=== PATIENT | female | born 1965 | race Caucasian/White ===

== ENCOUNTER → 2023-09-14 | Emergency (ER) | payer OTHER ==
[~2023-09-14] MED LIST: NA CHLORIDE 0.9% 1,000 ML ONE; POTASSIUM CL SA 10 MEQ TAB PO ONE
--- NOTE | 2023-09-14 11:38 | RAD REPORT ---
EXAM DESCRIPTION: RAD - Chest Single View - 09/14/2023 11:32 am CLINICAL HISTORY: COPD Chest pain. COMPARISON: No comparisons FINDINGS: Portable technique limits examination quality. The lungs demonstrates prominent fibrotic changes with bilateral reticular opacities which could be c hronic or related to mild infection. . The heart is normal in size. No displaced fractures.
[2023-09-14 11:58] LABS: Absolute Basophils 0.1 K/uL (0-0.5); Absolute Lymphocytes (CBC) 1.3 K/uL (0.7-4.9); Basophils % 0.7 % (0-1.3); Eosinophils % 0.5 % (0-4.4); Hemoglobin 10.2 g/dL (12.0-15.0); Lymphocytes % 15.3 % (15.3-44.8); MCV 93.8 fL (80-100); MPV 8.4 fL (7.6-11.3); Platelets 366 thou/uL (152-406)
[2023-09-14 12:28] LABS: Specific Gravity 1.009 (1.005-1.030); Urine Bacteria <20 /HPF (<20); Urine Bilirubin NEGATIVE (Negative); Urine Blood Negative (Negative); Urine Clarity Extremely Turbid (Clear); Urine Color Light-Yellow (Yellow); Urine Glucose NEGATIVE (Negative); Urine Protein TRACE (Negative); Urine RBC <5 /HPF (None Seen); Urine Urobilinogen Normal (Normal); Urine pH 6.5 (5.0-7.0)
[2023-09-14 13:44] LABS: Albumin 1.9 g/dL (3.4-5.0); Albumin/Globulin Ratio 0.6 (1.1-1.8); Anion Gap 7.8 mEq/L (5.0-15.0); Bilirubin Direct 0.1 mg/dL (0-0.2); Bilirubin Indirect, Calculated 0.1 mg/dL (0.2-0.8); Bilirubin Total 0.2 mg/dL (0.2-1.0); Globulin 3.3 g/dL (2.3-3.5); Potassium 2.8 mEq/L (3.5-5.1); Protein, Total 5.2 g/dL (6.4-8.2); Troponin High Sensitivity 6.9 pg/mL (<58.9)
--- NOTE | 2023-09-14 14:02 | ER ---
Nurse's Notes [facility] Name: Lila Rosales Age: 57 yrs Sex: Female : 1965 Arrival Date: 09/14/2023 Time: 10:53 Bed 12 Private MD: Diagnosis: Hypokalemia;Hypoglycemia, unspecified Presentation: 09/13 11:01 Chief complaint: EMS states: Pt blood glucose reading was 45 on scene. Pt had 1 bag of kd3 D5W in route to the ED. Pt's Blood glucose reading on arrival was 185. Pt arrived on 2 liters nasal canula which is her baseline at home. Pt lives at home with family. Pt is now alert and oriented x 4, respirations are even and unlabored, pt is noted to be hypotensive on the monitor. Pt has a history of being hypotensive and has "fluid on her lungs". Pt placed on continuous monitoring and provided warm blankets for comfort. Coronavirus screen: Vaccine status: Patient reports receiving the 2nd dose of the covid vaccine. Ebola Screen: No symptoms or risks identified at this time. Initial Sepsis Screen: Does the patient meet any 2 criteria? Mean Arterial Pressure (MAP) < 65. No. Patient's initial sepsis screen is negative. Does the patient have a suspected source of infection? No. Patient's initial sepsis screen is negative. Risk Assessment: Do you want to hurt yourself or someone else? Patient reports no desire to harm self or others. Onset of symptoms was September 14, 2023. 11:01 Method Of Arrival: EMS: [facility] kd3 11:01 Acuity: DONNY 3 kd3 Triage Assessment: 11:05 General: Appears in no apparent distress. Behavior is calm, cooperative. Pain: Denies kd3 pain. 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 - Social history:: Smoking status: Patient reports the use of cigarette tobacco products. Screenin:12 [facility] ED Fall Risk Assessment (Adult) History of falling in the last 3 months, ph including since admission No falls in past 3 months (0 pts) Confusion or Disorientation No (0 pts) Intoxicated or Sedated No (0 pts) Impaired Gait No (0 pts) Mobility Assist Device Used No (0 pt) Altered Elimination No (0 pt) Score/Fall Risk Level 0 - 2 = Low Risk Oriented to surroundings, Maintained a safe environment, Provided non-skid footwear, Hourly rounding (assess needs \\T\\ fall precautionary measures) done. Abuse screen: Denies threats or abuse. Denies injuries from another. Nutritional screening: No deficits noted. Tuberculosis screening: No symptoms or risk factors identified. Assessment: 12:11 General: Appears in no apparent distress. comfortable, Behavior is calm, cooperative, ph appropriate for age. Pain: Denies pain. Neuro: Level of Consciousness is awake, alert, obeys commands, Oriented to person, place, time, situation. Respiratory: Airway is patent Respiratory effort is even, unlabored, Respiratory pattern is regular, symmetrical. Derm: Skin is intact, is healthy with good turgor, Skin is pink, warm \\T\\ dry. Musculoskeletal: Circulation, motion, and sensation intact. Range of motion: intact in all extremities. 12:30 General: Appears comfortable, Behavior is calm, cooperative, appropriate for age. Pain: me1 Denies pain. 12:30 Neuro: Level of Consciousness is awake, alert, obeys commands, Oriented to person, me1 place, time, situation, Appropriate for age. Cardiovascular: Patient's skin is warm and dry. Respiratory: Airway is patent Respiratory effort is even, unlabored, Respiratory pattern is regular, symmetrical, O2 at \\T\\ lpm via nc. Derm: Skin is intact, is healthy with good turgor, Skin is pink, warm \\T\\ dry. Musculoskeletal: Circulation, motion, and sensation intact. Range of motion: intact in all extremities. 15:29 Reassessment: Received call from pt's caregiver, Dolores, stated she won't be able to aa5 give pt ride home, states "I am in [place] and won't be able to pick her up". Primary nurse notified. . Vital Signs: 11:01 BP 74 / 51; Pulse 80; Resp 16; Temp 98.2(O); Pulse Ox 94% on 2 lpm NC; Weight 48.99 kg; kd3 11:10 BP 85 / 56; Pulse 74; Resp 18; Pulse Ox 97% on 2 lpm NC; ph 11:47 BP 86 / 67; ec2 12:07 BP 98 / 60; ec2 12:14 BP 104 / 78; Pulse 65; Resp 18; Pulse Ox 100% on R/A; ph 13:00 BP 114 / 68; Pulse 70; Resp 16; Pulse Ox 100% on 2 lpm NC; me1 13:56 BP 107 / 67; ec2 14:00 BP 113 / 74; Pulse 73; Resp 14; Pulse Ox 99% on 2 lpm NC; me1 14:30 BP 120 / 82; Pulse 76; Resp 16; Pulse Ox 96% on 2 lpm NC; me1 15:00 BP 115 / 69; Pulse 80; Resp 16; Pulse Ox 97% on 3 lpm NC; me1 ED Course: 10:55 Patient arrived in ED. ec2 10:55 Ramin Rocha MD is Attending Physician. ec2 11:05 Triage completed. kd3 11:05 Arm band placed on right wrist. kd3 11:07 Cheri Brewer RN is Primary Nurse. ph 11:34 XRAY Chest (1 view) In Process Unspecified. EDMS 12:12 Patient has correct armband on for positive identification. Bed in low position. Call ph light in reach. Side rails up X2. Client placed on continuous cardiac and pulse oximetry monitoring. NIBP monitoring applied. 12:13 Maintain EMS IV. Dressing intact. Site clean \\T\\ dry. Gauge \\T\\ site: 20 R wrist. Missed ph attempt(s): 22 gauge in left forearm. Bleeding controlled, band aid applied, catheter tip intact. Inserted saline lock: 24 gauge in left hand, using aseptic technique. Blood collected. 12:15 Initial lab(s) drawn, by me, sent to lab. EKG done. ph 12:26 Urine collected: clean catch specimen, cloudy. me1 13:10 Provided Education on: POC. Verbalized understanding.. me1 13:11 No provider procedures requiring assistance completed. me1 15:35 IV discontinued, intact, bleeding controlled, No redness/swelling at site. Pressure me1 dressing applied. 15:35 IV discontinued, intact, bleeding controlled, No redness/swelling at site. Pressure me1 dressing applied. Administered Medications: 12:26 Drug: NS 0.9% IV 1000 ml IV at 1 bolus Per protocol; 1000 mL bolus Route: IV; Rate: 1 me1 bolus; Site: right forearm; 14:43 Follow up: Response: No adverse reaction; IV Status: Completed infusion; IV Intake: me1 1000ml 14:21 Drug: Potassium Chloride PO 40 mEq PO once Route: PO; me1 14:43 Follow up: Response: No adverse reaction me1 Medication: 12:14 VIS not applicable for this client. Point of Care Testing: Blood Glucose: 14:21 Blood Glucose: 115 mg/dL; me1 Ranges: Intake: 14:43 IV: 1000ml; Total: 1000ml. me1 Outcome: 14:01 Discharge ordered by . ec2 15:37 Discharged to home me1 15:37 Condition: stable 15:37 Discharge instructions given to patient, Instructed on discharge instructions, follow up and referral plans. Demonstrated understanding of instructions, follow-up care, 16:14 Patient left the ED. as6 Signatures: Dispatcher [employer] Ebonie Silva RN RN aa5 Cheri Brewer RN RN ph Slawson, Ashby, RN RN as6 Maria Esther Pompa RN RN kd3 Marta Vera RN RN me1 Ramin Rocha MD MD ec2 Corrections: (The following items were deleted from the chart) 14:49 13:00 BP 114 / 68; Pulse 70bpm; Resp 16bpm; Pulse Ox 100% RA; me1 me1
--- NOTE | 2023-09-14 14:02 | EDPHYS ---
Physician Documentation [facility] Name: Lila Rosales Age: 57 yrs Sex: Female : 1965 Arrival Date: 09/14/2023 Time: 10:53 Bed 12 Private MD: ED Physician Ramin Rocha HPI: 09/13 10:58 This 57 yrs old Female presents to ER via Unassigned with complaints of ec2 hypoglycemia. 10:58 Patient arrives today for evaluation of hyperglycemia. Patient reportedly had blood ec2 sugar in the 40s, EMS had given the patient D10 subsequently sugars in the 180s. Patient reports history of COPD, on baseline oxygen requirement of 2 L. Patient with no new difficulty breathing or cough and cold symptoms. Patient reports medication compliance, reports her typical p.o. intake. Denies any infectious symptoms.. 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 - Social history:: Smoking status: Patient reports the use of cigarette tobacco products. ROS: 10:58 Constitutional: as per hpi ec2 Exam: 10:58 Constitutional: GEN: NAD Head: atraumatic Eyes: EOMI Ears: External ears are ec2 normal. CV: regular rate LUNGS: no respiratory distress ABD: non-distended, soft, nontender, no guarding, not rigid SKIN: no evidence of rashes MSK: no evidence of trauma NEURO: moves all extremities equally Vital Signs: 11:01 BP 74 / 51; Pulse 80; Resp 16; Temp 98.2(O); Pulse Ox 94% on 2 lpm NC; Weight 48.99 kg; kd3 11:10 BP 85 / 56; Pulse 74; Resp 18; Pulse Ox 97% on 2 lpm NC; ph 11:47 BP 86 / 67; ec2 12:07 BP 98 / 60; ec2 12:14 BP 104 / 78; Pulse 65; Resp 18; Pulse Ox 100% on R/A; ph 13:00 BP 114 / 68; Pulse 70; Resp 16; Pulse Ox 100% on 2 lpm NC; me1 13:56 BP 107 / 67; ec2 14:00 BP 113 / 74; Pulse 73; Resp 14; Pulse Ox 99% on 2 lpm NC; me1 14:30 BP 120 / 82; Pulse 76; Resp 16; Pulse Ox 96% on 2 lpm NC; me1 15:00 BP 115 / 69; Pulse 80; Resp 16; Pulse Ox 97% on 3 lpm NC; me1 MDM: 10:56 Patient medically screened. ec2 10:58 ED course: Patient arrives today for evaluation of hyperglycemia. Examination ec2 remarkable for well-appearing nontoxic dividual is otherwise in no acute distress. Will obtain lab work, urine studies, chest x-ray to assess the patient's cause of hypoglycemia. Evaluating for UTI, pneumonia, electrolyte disturbances, renal dysfunction.. 12:07 Data reviewed: vital signs. ED course: EKG independently reviewed and interpreted by ec2 ak, shows normal sinus rhythm, rate of 73, no acute ST segment elevations, intervals are pertinent for QTc of 512.. 13:54 ED course: Metabolic profile pertinent for hypokalemia with a potassium of 2.8. Will ec2 supplement this. BNP elevated at 2000. Troponin within normal ranges. Patient without any significant respiratory distress or desaturations. Will discharge home have her follow with primary care doctor. Presentation consistent with hypoglycemia since resolved . ED course: When compared to external records, creatinines have previously been in the range of 0.8-1.5. This appears similar to today's creatinine and renal function. . 09/13 10:57 Order name: Basic Metabolic Panel; Complete Time: 13:52 2 09/13 10:57 Order name: CBC with Diff; Complete Time: 12:08 ec2 09/13 10:57 Order name: NT PRO-BNP; Complete Time: 13:52 ec2 09/13 10:57 Order name: Troponin HS; Complete Time: 13:52 ec2 09/13 10:57 Order name: UAM; Complete Time: 12:39 ec2 09/13 10:57 Order name: LFT's; Complete Time: 13:52 ec2 09/13 12:24 Order name: Glucose, Ancillary Testing; Complete Time: 12:24 EDMS 09/13 14:33 Order name: Glucose, Ancillary Testing; Complete Time: 14:43 EDMS 09/13 10:57 Order name: XRAY Chest (1 view); Complete Time: 11:40 ec2 09/13 10:57 Order name: EKG; Complete Time: 10:57 ec2 09/13 10:57 Order name: Cardiac monitoring; Complete Time: 12:15 ec2 09/13 10:57 Order name: EKG - Nurse/Tech; Complete Time: 12:15 ec2 09/13 10:57 Order name: IV Saline Lock; Complete Time: 12:15 ec2 09/13 10:57 Order name: Labs collected and sent; Complete Time: 12:15 ec2 09/13 10:57 Order name: O2 Per Protocol; Complete Time: 12:15 ec2 09/13 10:57 Order name: O2 Sat Monitoring; Complete Time: 12:15 ec2 09/13 10:57 Order name: Glucose Level; Complete Time: 12:15 ec2 09/13 12:06 Order name: Labs - recollect needed: green tube; Complete Time: 12:43 bd Administered Medications: 12:26 Drug: NS 0.9% IV 1000 ml IV at 1 bolus Per protocol; 1000 mL bolus Route: IV; Rate: 1 me1 bolus; Site: right forearm; 14:43 Follow up: Response: No adverse reaction; IV Status: Completed infusion; IV Intake: me1 1000ml 14:21 Drug: Potassium Chloride PO 40 mEq PO once Route: PO; me1 14:43 Follow up: Response: No adverse reaction me1 Point of Care Testing: Blood Glucose: 14:21 Blood Glucose: 115 mg/dL; me1 Ranges: Critical Glucose Levels:Adult <50 mg/dl or >400 mg/dl <40 mg/dl or >180 mg/dl Disposition Summary: 09/14/23 14:01 Discharge Ordered Notes: Location: Home ec2 Condition: Stable ec2 Diagnosis - Hypokalemia ec2 - Hypoglycemia, unspecified ec2 Followup: ec2 - With: Private Physician - When: - Reason: Re-evaluation by your physician Discharge Instructions: - Discharge Summary Sheet ec2 - Potassium Content of Foods ec2 Forms: - Medication Reconciliation Form ec2 - Thank You Letter ec2 - Antibiotic Education ec2 - Prescription Opioid Use ec2 - Patient Portal Instructions ec2 - Leadership Thank You Letter ec2 Signatures: Dispatcher [employer] Yohana Ortiz Kyli, RN RN 3 Marta Vera RN RN me1 Rocha, Ramin, MD MD ec2
[2023-09-14 16:39] VITALS: BP 115/69; TEMP 98.2; O2SAT 97
== END ==
LOC: ER 10:53
DX: E87.6 Hypokalemia (principal); E16.2 Hypoglycemia, unspecified; J44.9 Chronic obstructive pulmonary disease, unspecified; Z99.81 Dependence on supplemental oxygen; Z72.0 Tobacco use; Z88.8 Allergy status to other drugs, medicaments and biological substances
CPT/HCPCS: 85025; 81001; 80048; 36415; 82947 ×2; 80076; 84484; 83880; 71045; J7030; 96360; 96361; 99285

== ENCOUNTER → 2023-09-16 | Emergency (ER) | payer OTHER ==
[~2023-09-16] MED LIST changes: +ALBUTEROL 2.5 MG/3 ML NEB SOL ONE; +IPRATROPIUM BROM 0.5MG/2.5ML ONE; -NA CHLORIDE 0.9% 1,000 ML ONE; -POTASSIUM CL SA 10 MEQ TAB PO ONE
--- OUTSIDE RECORDS SUMMARY | 2023-09-16 13:04 | XMS REPORT | Continuity of Care Document ---
Author Name Unknown Address [address] [facility] [address] [place] [address] [facility]connect Address [address] [facility] 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 Role Phone Gilma Juarez Primary Care Physician Chaz Rojas MD Attending Clinician [phone] CHAZ ROJAS Attending Clinician Unavailable Cecilio Thornton Attending Clinician [phone] Emmy Fink NP Attending Clinician [phone] Doctor Unassigned, Florien Attending Clinician U josefina England RN, Nina Attending Clinician Unavailabl e CECILIO GALINDO Attending Clinician Unavailable EMMY FINK Attending Clinician Unavaila ble 2, [facility] Attending Clinician Unavailable Payers Payer Name Policy Type Policy Number Effective Date Expirati on Date Source [facility] (MEDICARE REPLACEMENT HMO) [id number] 2021 00:00:00 Allergies, Adverse Reactions, Alerts Allergy Name Allergy Type Status Severity Reaction(s) Onset Date Inactive Date Treating Clinician Comments Source NO KNOWN ALLERGIE S Drug Class Active [facility] Social History Social Habit Start Date Stop Date Quantity Comments Source History of tobacco use Cigarette Smoker [facility] Gender identity [facility] Sexual orientation [facility] Alcohol intake 2023-03-27 00:00:00 2023-03-27 00:00:00 Lifetime non-drinker (finding) [facility] Cigarettes smoked current (pack per day) - Reported 2023-01-22 00:00:00 2023-01-22 00:00:00 [facility] Tobacco use and exposure 2023-01-22 00:00:00 2023-01-22 00:00:00 Smokeless tobacco non-user [facility] Exposure to SARS-CoV-2 (event) 2022-07-26 00:00:00 2022-08-05 08:39:00 Not sure [facility] History of Social function 2022-08-05 00:00:00 2022-08-05 00:00:00 [facility] Sex Assigned At 1965 00:00:00 1965 00:00:00 [facility] Smoking Status Start Date Stop Date Source Tobacco smoking consumption unknown [facility] Smokes tobacco daily 2023-01-22 00:00:00 [facility] Medications Ordered Medication Name Filled Medication Name Start Date Stop Date Current Medication? Ordering Clinician Indication Dosage Frequency Signature (SIG) Comments Components Source lisinopriL 5 mg tablet 09-02 00:00: 00 Yes [id number] 5mg Take 1 tablet by mouth every morning. Lab needed for further refills. [facility] metoprolol succinate XL 50 mg 24 hr tablet 08-25 00:00: 00 Yes [id number] TAKE 1 TABLET BY MOUTH EVERY DAY FOR 90 DAYS [facility] metoprolol succinate XL 50 mg 24 hr tablet 08-25 00:00: 00 Yes [id number] TAKE 1 TABLET BY MOUTH EVERY DAY FOR 90 DAYS [facility] LISINOPRIL 5 mg tablet 2022-07 00:00: 00 Yes [id number] 5mg TAKE 1 TABLET BY MOUTH EVERY DAY IN THE MORNING [facility] LISINOPRIL 5 mg tablet 2022-07 00:00: 00 Yes [id number] 5mg TAKE 1 TABLET BY MOUTH EVERY DAY IN THE MORNING [facility] LISINOPRIL 5 mg tablet 2022-07 00:00: 00 Yes [id number] 5mg TAKE 1 TABLET BY MOUTH EVERY DAY IN THE MORNING [facility] LISINOPRIL 5 mg tablet 2022-07 00:00: 00 Yes [id number] 5mg TAKE 1 TABLET BY MOUTH EVERY DAY IN THE MORNING [facility] LISINOPRIL 5 mg tablet 2022-07 00:00: 00 09-02 00:00 :00 No [id number] 5mg TAKE 1 TABLET BY MOUTH EVERY DAY IN THE MORNING [facility] metoprolol succinate XL 50 mg 24 hr tablet 2022-07 00:00: 00 Yes TAKE 1 TABLET BY MOUTH EVERY DAY FOR 90 DAYS [facility] metoprolol succinate XL 25 mg 24 hr tablet 2022-07 00:00: 00 Yes [id number] 25mg Take 1 tablet by mouth in the morning. [facility] metoprolol succinate XL 50 mg 24 hr tablet 2022-07 00:00: 00 Yes TAKE 1 TABLET BY MOUTH EVERY DAY FOR 90 DAYS [facility] metoprolol succinate XL 25 mg 24 hr tablet 2022-07 00:00: 00 Yes [id number] 25mg Take 1 tablet by mouth in the morning. [facility] metoprolol succinate XL 50 mg 24 hr tablet 2022-07 00:00: 00 Yes TAKE 1 TABLET BY MOUTH EVERY DAY FOR 90 DAYS [facility] metoprolol succinate XL 25 mg 24 hr tablet 2022-07 00:00: 00 Yes [id number] 25mg Take 1 tablet by mouth in the morning. [facility] metoprolol succinate XL 50 mg 24 hr tablet 2022-07 00:00: 00 Yes TAKE 1 TABLET BY MOUTH EVERY DAY FOR 90 DAYS [facility] metoprolol succinate XL 25 mg 24 hr tablet 2022-07 00:00: 00 Yes [id number] 25mg Take 1 tablet by mouth in the morning. [facility] metoprolol succinate XL 25 mg 24 hr tablet 2022-07 00:00: 00 Yes [id number] 25mg Take 1 tablet by mouth in the morning. [facility] metoprolol succinate XL 25 mg 24 hr tablet 2022-07 00:00: 00 Yes [id number] 25mg Take 1 tablet by mouth in the morning. [facility] metoprolol succinate XL 50 mg 24 hr tablet 2022-07 00:00: 00 08-24 00:00 :00 No TAKE 1 TABLET BY MOUTH EVERY DAY FOR 90 DAYS [facility] spironolact one 25 mg tablet 2022-07 14:15: 27 Yes 25mg Take 1 tablet by mouth in the morning. [facility] spironolact one 25 mg tablet 2022-07 14:15: 27 Yes 25mg Take 1 tablet by mouth in the morning. [facility] spironolact one 25 mg tablet 2022-07 14:15: 27 Yes 25mg Take 1 tablet by mouth in the morning. [facility] spironolact one 25 mg tablet 2022-07 14:15: 27 Yes 25mg Take 1 tablet by mouth in the morning. [facility] spironolact one 25 mg tablet 2022-07 14:15: 27 Yes 25mg Take 1 tablet by mouth in the morning. [facility] spironolact one 25 mg tablet 2022-07 14:15: 27 Yes 25mg Take 1 tablet by mouth in the morning. [facility] spironolact one 25 mg tablet 2022-07 14:15: 27 Yes 25mg Take 1 tablet by mouth in the morning. [facility] lisinopriL 5 mg tablet 2022-0 03-09 00:00: 00 Yes [id number] 5mg TAKE 1 TABLET BY MOUTH EVERY DAY IN THE MORNING [facility] lisinopriL 5 mg tablet 2022-0 03-09 00:00: 00 Yes [id number] 5mg TAKE 1 TABLET BY MOUTH EVERY DAY IN THE MORNING [facility] lisinopriL 5 mg tablet 2022-0 03-09 00:00: 00 Yes [id number] 5mg TAKE 1 TABLET BY MOUTH EVERY DAY IN THE MORNING [facility] lisinopriL 5 mg tablet 3-0 03-09 00:00: 00 Yes [id number] 5mg TAKE 1 TABLET BY MOUTH EVERY DAY IN THE MORNING [facility] lisinopriL 5 mg tablet 2022-0 03-09 00:00: 00 Yes [id number] 5mg TAKE 1 TABLET BY MOUTH EVERY DAY IN THE MORNING [facility] lisinopriL 5 mg tablet 2022-0 03-09 00:00: 00 06-05 00:00 :00 No [id number] 5mg TAKE 1 TABLET BY MOUTH EVERY DAY IN THE MORNING [facility] atorvastati n 40 mg tablet 2022-0 01-22 08:53: 55 Yes 40mg Take 1 tablet by mouth in the morning. [facility] topiramate 100 mg tablet 2022-0 01-22 08:53: 55 Yes 1 tablet [facility] venlafaxine XR 150 mg 24 hr capsule 2022-0 01-22 08:53: 55 Yes 1 capsule with food [facility] furosemide 20 mg tablet 2022-0 01-22 08:53: 55 Yes 1 tablet [facility] atorvastati n 40 mg tablet 0 01-22 08:53: 55 Yes 40mg Take 1 tablet by mouth in the morning. [facility] topiramate 100 mg tablet 2022-0 01-22 08:53: 55 Yes 1 tablet [facility] venlafaxine XR 150 mg 24 hr capsule 2022-0 01-22 08:53: 55 [facility] 01-22 08:53: 55 Yes 1 tablet [facility] atorvastati n 40 mg tablet 2022-0 01-22 08:53: 55 Yes 40mg Take 1 tablet by mouth in the morning. [facility] topiramate 100 mg tablet 2022-0 20 08:53: 55 Yes 1 tablet [facility] venlafaxine XR 150 mg 24 hr capsule 2022-0 01-22 08:53: 55 Yes 1 capsule with food [facility] furosemide 20 mg tablet 2022-0 -20 08:53: 55 Yes 1 tablet [facility] atorvastati n 40 mg tablet 2022-0 01-22 08:53: 55 Yes 40mg Take 1 tablet by mouth in the morning. [facility] topiramate 100 mg tablet 0 01-22 08:53: 55 Yes 1 tablet [facility] venlafaxine XR 150 mg 24 hr capsule 01-22 08:53: 55 Yes 1 capsule with food [facility] furosemide 20 mg tablet 01-22 08:53: 55 Yes 1 tablet [facility] atorvastati n 40 mg tablet 01-22 08:53: 55 Yes 40mg Take 1 tablet by mouth in the morning. [facility] topiramate 100 mg tablet 01-22 08:53: 55 Yes 1 tablet [facility] venlafaxine XR 150 mg 24 hr capsule 01-22 08:53: 55 Yes 1 capsule with food [facility] furosemide 20 mg tablet 01-22 08:53: 55 Yes 1 tablet [facility] atorvastati n 40 mg tablet 01-22 08:53: 55 Yes 40mg Take 1 tablet by mouth in the morning. [facility] topiramate 100 mg tablet 01-22 08:53: 55 Yes 1 tablet [facility] venlafaxine XR 150 mg 24 hr capsule 01-22 08:53: 55 Yes 1 capsule with food [facility] furosemide 20 mg tablet 01-22 08:53: 55 Yes 1 tablet [facility] atorvastati n 40 mg tablet 01-22 08:53: 55 Yes 40mg Take 1 tablet by mouth in the morning. [facility] topiramate 100 mg tablet 01-22 08:53: 55 Yes 1 tablet [facility] venlafaxine XR 150 mg 24 hr capsule 01-22 08:53: 55 Yes 1 capsule with food [facility] furosemide 20 mg tablet 0 01-22 08:53: 55 Yes 1 tablet [facility] atorvastati n 40 mg tablet 01-22 08:53: 55 Yes 40mg Take 1 tablet by mouth in the morning. [facility] topiramate 100 mg tablet 01-22 08:53: 55 Yes 1 tablet [facility] venlafaxine XR 150 mg 24 hr capsule 01-22 08:53: 55 Yes 1 capsule with food [facility] furosemide 20 mg tablet 01-22 08:53: 55 Yes 1 tablet [facility] atorvastati n 40 mg tablet 01-22 08:53: 55 Yes 40mg Take 1 tablet by mouth in the morning. [facility] topiramate 100 mg tablet 01-22 08:53: 55 Yes 1 tablet [facility] venlafaxine XR 150 mg 24 hr capsule 01-22 08:53: 55 Yes 1 capsule with food [facility] furosemide 20 mg tablet 01-22 08:53: 55 Yes 1 tablet [facility] atorvastati n 40 mg tablet 01-22 08:53: 55 Yes 40mg Take 1 tablet by mouth in the morning. [facility] topiramate 100 mg tablet 01-22 08:53: 55 Yes 1 tablet [facility] venlafaxine XR 150 mg 24 hr capsule 01-22 08:53: 55 Yes 1 capsule with food [facility] furosemide 20 mg tablet 01-22 08:53: 55 Yes 1 tablet [facility] atorvastati n 40 mg tablet 01-22 08:53: 55 Yes 40mg Take 1 tablet by mouth in the morning. [facility] topiramate 100 mg tablet 01-22 08:53: 55 Yes 1 tablet [facility] venlafaxine XR 150 mg 24 hr capsule 01-22 08:53: 55 Yes 1 capsule with food [facility] furosemide 20 mg tablet 01-22 08:53: 55 Yes 1 tablet [facility] atorvastati n 40 mg tablet 01-22 08:53: 55 Yes 40mg Take 1 tablet by mouth in the morning. [facility] topiramate 100 mg tablet 0 01-22 08:53: 55 Yes 1 tablet [facility] venlafaxine XR 150 mg 24 hr capsule 01-22 08:53: 55 Yes 1 capsule with food [facility] furosemide 20 mg tablet 0 01-22 08:53: 55 Yes 1 tablet [facility] atorvastati n 40 mg tablet 01-22 08:53: 55 Yes 40mg Take 1 tablet by mouth in the morning. [facility] topiramate 100 mg tablet 01-22 08:53: 55 Yes 1 tablet [facility] venlafaxine XR 150 mg 24 hr capsule 01-22 08:53: 55 Yes 1 capsule with food [facility] furosemide 20 mg tablet 01-22 08:53: 55 Yes 1 tablet [facility] atorvastati n 40 mg tablet 01-22 08:53: 55 Yes 40mg Take 1 tablet by mouth in the morning. [facility] topiramate 100 mg tablet 01-22 08:53: 55 Yes 1 tablet [facility] venlafaxine XR 150 mg 24 hr capsule 01-22 08:53: 55 Yes 1 capsule with food [facility] furosemide 20 mg tablet 01-22 08:53: 55 Yes 1 tablet [facility] atorvastati n 40 mg tablet 01-22 08:53: 55 Yes 40mg Take 1 tablet by mouth in the morning. [facility] topiramate 100 mg tablet 01-22 08:53: 55 Yes 1 tablet [facility] venlafaxine XR 150 mg 24 hr capsule 01-22 08:53: 55 Yes 1 capsule with food [facility] furosemide 20 mg tablet 01-22 08:53: 55 Yes 1 tablet [facility] atorvastati n 40 mg tablet 01-22 08:53: 55 Yes 40mg Take 1 tablet by mouth in the morning. [facility] topiramate 100 mg tablet 01-22 08:53: 55 Yes 1 tablet [facility] venlafaxine XR 150 mg 24 hr capsule 01-22 08:53: 55 Yes 1 capsule with food [facility] furosemide 20 mg tablet 01-22 08:53: 55 Yes 1 tablet [facility] atorvastati n 40 mg tablet 01-22 08:53: 55 Yes 40mg Take 1 tablet by mouth in the morning. [facility] topiramate 100 mg tablet 01-22 08:53: 55 Yes 1 tablet [facility] venlafaxine XR 150 mg 24 hr capsule 01-22 08:53: 55 Yes 1 capsule with food [facility] furosemide 20 mg tablet 01-22 08:53: 55 Yes 1 tablet [facility] atorvastati n 40 mg tablet 01-22 08:53: 55 Yes 40mg Take 1 tablet by mouth in the morning. [facility] topiramate 100 mg tablet 01-22 08:53: 55 Yes 1 tablet [facility] venlafaxine XR 150 mg 24 hr capsule 01-22 08:53: 55 Yes 1 capsule with food [facility] furosemide 20 mg tablet 01-22 08:53: 55 Yes 1 tablet [facility] atorvastati n 40 mg tablet 01-22 08:53: 55 Yes 40mg Take 1 tablet by mouth in the morning. [facility] topiramate 100 mg tablet 01-22 08:53: 55 Yes 1 tablet [facility] venlafaxine XR 150 mg 24 hr capsule 01-22 08:53: 55 Yes 1 capsule with food [facility] furosemide 20 mg tablet 01-22 08:53: 55 Yes 1 tablet [facility] atorvastati n 40 mg tablet 01-22 08:53: 55 Yes 40mg Take 1 tablet by mouth in the morning. [facility] topiramate 100 mg tablet 01-22 08:53: 55 Yes 1 tablet [facility] venlafaxine XR 150 mg 24 hr capsule 01-22 08:53: 55 Yes 1 capsule with food [facility] furosemide 20 mg tablet 01-22 08:53: 55 Yes 1 tablet [facility] atorvastati n 40 mg tablet 01-22 08:53: 55 Yes 40mg Take 1 tablet by mouth in the morning. [facility] topiramate 100 mg tablet 01-22 08:53: 55 Yes 1 tablet [facility] venlafaxine XR 150 mg 24 hr capsule 01-22 08:53: 55 Yes 1 capsule with food [facility] furosemide 20 mg tablet 01-22 08:53: 55 Yes 1 tablet [facility] atorvastati n 40 mg tablet 01-22 08:53: 55 Yes 40mg Take 1 tablet by mouth in the morning. [facility] topiramate 100 mg tablet 01-22 08:53: 55 Yes 1 tablet [facility] venlafaxine XR 150 mg 24 hr capsule 01-22 08:53: 55 Yes 1 capsule with food [facility] furosemide 20 mg tablet 01-22 08:53: 55 Yes 1 tablet [facility] atorvastati n 40 mg tablet 01-22 08:53: 55 Yes 40mg Take 1 tablet by mouth in the morning. [facility] topiramate 100 mg tablet 01-22 08:53: 55 Yes 1 tablet [facility] venlafaxine XR 150 mg 24 hr capsule 01-22 08:53: 55 Yes 1 capsule with food [facility] furosemide 20 mg tablet 01-22 08:53: 55 Yes 1 tablet [facility] atorvastati n 40 mg tablet 2022-0 01-22 08:53: 55 Yes 40mg Take 1 tablet by mouth in the morning. [facility] topiramate 100 mg tablet 2022-0 01-22 08:53: 55 Yes 1 tablet [facility] venlafaxine XR 150 mg 24 hr capsule 2022-0 01-22 08:53: 55 Yes 1 capsule with food [facility] furosemide 20 mg tablet 2022-0 01-22 08:53: 55 Yes 1 tablet [facility] atorvastati n 40 mg tablet 0 01-22 08:53: 55 Yes 40mg Take 1 tablet by mouth in the morning. [facility] topiramate 100 mg tablet 0 01-22 08:53: 55 Yes 1 tablet [facility] venlafaxine XR 150 mg 24 hr capsule 0 01-22 08:53: 55 Yes 1 capsule with food [facility] furosemide 20 mg tablet 0 01-22 08:53: 55 Yes 1 tablet [facility] esomeprazol e 40 mg capsule 2022-0 01-09 00:00: 00 Yes 40mg Take 1 capsule by mouth in the morning. [facility] esomeprazol e 40 mg capsule 2022-0 01-09 00:00: 00 Yes 40mg Take 1 capsule by mouth in the morning. [facility] esomeprazol e 40 mg capsule 3-0 01-09 00:00: 00 Yes 40mg Take 1 capsule by mouth in the morning. [facility] esomeprazol e 40 mg capsule 3-0 01-09 00:00: 00 Yes 40mg Take 1 capsule by mouth in the morning. [facility] esomeprazol e 40 mg capsule 3-0 01-09 00:00: 00 Yes 40mg Take 1 capsule by mouth in the morning. [facility] esomeprazol e 40 mg capsule 3-0 01-09 00:00: 00 Yes 40mg Take 1 capsule by mouth in the morning. [facility] esomeprazol e 40 mg capsule 3-0 01-09 00:00: 00 Yes 40mg Take 1 capsule by mouth in the morning. [facility] esomeprazol e 40 mg capsule 3-0 01-09 00:00: 00 Yes 40mg Take 1 capsule by mouth in the morning. [facility] esomeprazol e 40 mg capsule 3-0 01-09 00:00: 00 Yes 40mg Take 1 capsule by mouth in the morning. [facility] esomeprazol e 40 mg capsule 3-0 01-09 00:00: 00 Yes 40mg Take 1 capsule by mouth in the morning. [facility] esomeprazol e 40 mg capsule 3-0 01-09 00:00: 00 Yes 40mg Take 1 capsule by mouth in the morning. [facility] esomeprazol e 40 mg capsule 3-0 01-09 00:00: 00 Yes 40mg Take 1 capsule by mouth in the morning. [facility] esomeprazol e 40 mg capsule 3-0 01-09 00:00: 00 Yes 40mg Take 1 capsule by mouth in the morning. [facility] esomeprazol e 40 mg capsule 3-0 01-09 00:00: 00 Yes 40mg Take 1 capsule by mouth in the morning. [facility] esomeprazol e 40 mg capsule 3-0 01-09 00:00: 00 Yes 40mg Take 1 capsule by mouth in the morning. [facility] esomeprazol e 40 mg capsule 3-0 01-09 00:00: 00 Yes 40mg Take 1 capsule by mouth in the morning. [facility] esomeprazol e 40 mg capsule 3-0 01-09 00:00: 00 Yes 40mg Take 1 capsule by mouth in the morning. [facility] esomeprazol e 40 mg capsule 3-0 01-09 00:00: 00 Yes 40mg Take 1 capsule by mouth in the morning. [facility] esomeprazol e 40 mg capsule 3-0 01-09 00:00: 00 Yes 40mg Take 1 capsule by mouth in the morning. [facility] esomeprazol e 40 mg capsule 2022-0 01-09 00:00: 00 Yes 40mg Take 1 capsule by mouth in the morning. [facility] esomeprazol e 40 mg capsule 2022-0 01-09 00:00: 00 Yes 40mg Take 1 capsule by mouth in the morning. [facility] esomeprazol e 40 mg capsule 2022-0 01-09 00:00: 00 Yes 40mg Take 1 capsule by mouth in the morning. [facility] esomeprazol e 40 mg capsule 2022-0 01-09 00:00: 00 Yes 40mg Take 1 capsule by mouth in the morning. [facility] esomeprazol e 40 mg capsule 2022-0 01-09 00:00: 00 Yes 40mg Take 1 capsule by mouth in the morning. [facility] esomeprazol e 40 mg capsule 2022-0 01-09 00:00: 00 Yes 40mg Take 1 capsule by mouth in the morning. [facility] SENEXON-S 8.6-50 mg per tablet 0 12-16 00:00: 00 Yes TAKE 2 TABLETS BY MOUTH EVERY DAY NEEDED [facility] SENEXON-S 8.6-50 mg per tablet 2022-0 12-16 00:00: 00 Yes TAKE 2 TABLETS BY MOUTH EVERY DAY NEEDED [facility] SENEXON-S 8.6-50 mg per tablet 2022-0 12-16 00:00: 00 Yes TAKE 2 TABLETS BY MOUTH EVERY DAY NEEDED [facility] SENEXON-S 8.6-50 mg per tablet 2022-0 12-16 00:00: 00 Yes TAKE 2 TABLETS BY MOUTH EVERY DAY NEEDED [facility] SENEXON-S 8.6-50 mg per tablet 2022-0 12-16 00:00: 00 Yes TAKE 2 TABLETS BY MOUTH EVERY DAY NEEDED [facility] SENEXON-S 8.6-50 mg per tablet 0 12-16 00:00: 00 Yes TAKE 2 TABLETS BY MOUTH EVERY DAY NEEDED [facility] SENEXON-S 8.6-50 mg per tablet 0 12-16 00:00: 00 Yes TAKE 2 TABLETS BY MOUTH EVERY DAY NEEDED [facility] SENEXON-S 8.6-50 mg per tablet 0 12-16 00:00: 00 Yes TAKE 2 TABLETS BY MOUTH EVERY DAY NEEDED [facility] SENEXON-S 8.6-50 mg per tablet 0 12-16 00:00: 00 Yes TAKE 2 TABLETS BY MOUTH EVERY DAY NEEDED [facility] SENEXON-S 8.6-50 mg per tablet 0 12-16 00:00: 00 Yes TAKE 2 TABLETS BY MOUTH EVERY DAY NEEDED [facility] SENEXON-S 8.6-50 mg per tablet 0 12-16 00:00: 00 Yes TAKE 2 TABLETS BY MOUTH EVERY DAY NEEDED [facility] SENEXON-S 8.6-50 mg per tablet 0 12-16 00:00: 00 Yes TAKE 2 TABLETS BY MOUTH EVERY DAY NEEDED [facility] SENEXON-S 8.6-50 mg per tablet 0 12-16 00:00: 00 Yes TAKE 2 TABLETS BY MOUTH EVERY DAY NEEDED [facility] SENEXON-S 8.6-50 mg per tablet 0 12-16 00:00: 00 Yes TAKE 2 TABLETS BY MOUTH EVERY DAY NEEDED [facility] SENEXON-S 8.6-50 mg per tablet 0 12-16 00:00: 00 Yes TAKE 2 TABLETS BY MOUTH EVERY DAY NEEDED [facility] SENEXON-S 8.6-50 mg per tablet 0 12-16 00:00: 00 Yes TAKE 2 TABLETS BY MOUTH EVERY DAY NEEDED [facility] SENEXON-S 8.6-50 mg per tablet 0 12-16 00:00: 00 Yes TAKE 2 TABLETS BY MOUTH EVERY DAY NEEDED [facility] SENEXON-S 8.6-50 mg per tablet 0 12-16 00:00: 00 Yes TAKE 2 TABLETS BY MOUTH EVERY DAY NEEDED [facility] SENEXON-S 8.6-50 mg per tablet 2022-0 12-16 00:00: 00 Yes TAKE 2 TABLETS BY MOUTH EVERY DAY NEEDED [facility] SENEXON-S 8.6-50 mg per tablet 2022-0 13 00:00: 00 Yes TAKE 2 TABLETS BY MOUTH EVERY DAY NEEDED [facility] SENEXON-S 8.6-50 mg per tablet 2022-0 12-16 00:00: 00 Yes TAKE 2 TABLETS BY MOUTH EVERY DAY NEEDED [facility] SENEXON-S 8.6-50 mg per tablet 2022-0 12-16 00:00: 00 Yes TAKE 2 TABLETS BY MOUTH EVERY DAY NEEDED [facility] SENEXON-S 8.6-50 mg per tablet 2022-0 12-16 00:00: 00 Yes TAKE 2 TABLETS BY MOUTH EVERY DAY NEEDED [facility] SENEXON-S 8.6-50 mg per tablet 2022-0 12-16 00:00: 00 Yes TAKE 2 TABLETS BY MOUTH EVERY DAY NEEDED [facility] SENEXON-S 8.6-50 mg per tablet 2022-0 12-16 00:00: 00 Yes TAKE 2 TABLETS BY MOUTH EVERY DAY [facility]PRINIV[facility] 5 mg tablet 2022-0 12-10 00:00: 00 Yes [id number] 5mg Take 1 tablet by mouth in the morning. [facility] lisinopriL (PRINIVIL) 5 mg tablet 2022-0 12-10 00:00: 00 Yes [id number] 5mg Take 1 tablet by mouth in the morning. [facility] lisinopriL (PRINIVIL) 5 mg tablet 2022-0 12-10 00:00: 00 Yes [id number] 5mg Take 1 tablet by mouth in the morning. [facility] lisinopriL (PRINIVIL) 5 mg tablet 2022-0 12-10 00:00: 00 Yes [id number] 5mg Take 1 tablet by mouth in the morning. [facility] lisinopriL (PRINIVIL) 5 mg tablet 3-0 12-10 00:00: 00 Yes [id number] 5mg Take 1 tablet by mouth in the morning. [facility] lisinopriL (PRINIVIL) 5 mg tablet 3-0 12-10 00:00: 00 Yes [id number] 5mg Take 1 tablet by mouth in the morning. [facility] lisinopriL (PRINIVIL) 5 mg tablet 2022-0 12-10 00:00: 00 Yes [id number] 5mg Take 1 tablet by mouth in the morning. [facility] lisinopriL (PRINIVIL) 5 mg tablet 2022-0 12-10 00:00: 00 Yes [id number] 5mg Take 1 tablet by mouth in the morning. [facility] lisinopriL (PRINIVIL) 5 mg tablet 2022-0 12-10 00:00: 00 Yes [id number] 5mg Take 1 tablet by mouth in the morning. [facility] lisinopriL (PRINIVIL) 5 mg tablet 2022-0 12-10 00:00: 00 Yes [id number] 5mg Take 1 tablet by mouth in the morning. [facility] lisinopriL (PRINIVIL) 5 mg tablet 2022-0 12-10 00:00: 00 Yes [id number] 5mg Take 1 tablet by mouth in the morning. [facility] lisinopriL (PRINIVIL) 5 mg tablet 3-0 12-10 00:00: 00 Yes [id number] 5mg Take 1 tablet by mouth in the morning. [facility] lisinopriL (PRINIVIL) 5 mg tablet 3-0 12-10 00:00: 00 Yes [id number] 5mg Take 1 tablet by mouth in the morning. [facility] lisinopriL (PRINIVIL) 5 mg tablet 3-0 12-10 00:00: 00 Yes [id number] 5mg Take 1 tablet by mouth in the morning. [facility] lisinopriL (PRINIVIL) 5 mg tablet 3-0 12-10 00:00: 00 Yes [id number] 5mg Take 1 tablet by mouth in the morning. [facility] lisinopriL (PRINIVIL) 5 mg tablet 3-0 6-07 00:00: 00 Yes [id number] 5mg Take 1 tablet by mouth in the morning. [facility] lisinopriL (PRINIVIL) 5 mg tablet 2023-0 6-07 00:00: 00 Yes [id number] 5mg Take 1 tablet by mouth in the morning. [facility] lisinopriL (PRINIVIL) 5 mg tablet 3-0 6-07 00:00: 00 Yes [id number] 5mg Take 1 tablet by mouth in the morning. [facility] lisinopriL (PRINIVIL) 5 mg tablet 3-0 6-07 00:00: 00 Yes [id number] 5mg Take 1 tablet by mouth in the morning. [facility] lisinopriL (PRINIVIL) 5 mg tablet 3-0 6-07 00:00: 00 Yes [id number] 5mg Take 1 tablet by mouth in the morning. [facility] lisinopriL (PRINIVIL) 5 mg tablet 3-0 6-07 00:00: 00 Yes [id number] 5mg Take 1 tablet by mouth in the morning. [facility] lisinopriL (PRINIVIL) 5 mg tablet 3-0 6-07 00:00: 00 Yes [id number] 5mg Take 1 tablet by mouth in the morning. [facility] lisinopriL (PRINIVIL) 5 mg tablet 3-0 6-07 00:00: 00 Yes [id number] 5mg Take 1 tablet by mouth in the morning. [facility] lisinopriL (PRINIVIL) 5 mg tablet 3-0 6-07 00:00: 00 03-09 00:00 :00 No [id number] 5mg Take 1 tablet by mouth in the morning. [facility] predniSONE 10 mg tablet 3-0 3-29 00:00: 00 Yes TAKE 1 TABLET BY MOUTH EVERY DAY FOR 90 DAYS [facility] predniSONE 10 mg tablet 3-0 3-29 00:00: 00 Yes TAKE 1 TABLET BY MOUTH EVERY DAY FOR 90 DAYS [facility] predniSONE 10 mg tablet 3-0 10-01 00:00: 00 Yes TAKE 1 TABLET BY MOUTH EVERY DAY FOR 90 DAYS [facility] predniSONE 10 mg tablet 3-0 10-01 00:00: 00 Yes TAKE 1 TABLET BY MOUTH EVERY DAY FOR 90 DAYS [facility] predniSONE 10 mg tablet 3-0 10-01 00:00: 00 Yes TAKE 1 TABLET BY MOUTH EVERY DAY FOR 90 DAYS [facility] predniSONE 10 mg tablet 2023-0 10-01 00:00: 00 Yes TAKE 1 TABLET BY MOUTH EVERY DAY FOR 90 DAYS [facility] predniSONE 10 mg tablet 3-0 10-01 00:00: 00 Yes TAKE 1 TABLET BY MOUTH EVERY DAY FOR 90 DAYS [facility] predniSONE 10 mg tablet 3-0 10-01 00:00: 00 Yes TAKE 1 TABLET BY MOUTH EVERY DAY FOR 90 DAYS [facility] predniSONE 10 mg tablet 3-0 10-01 00:00: 00 Yes TAKE 1 TABLET BY MOUTH EVERY DAY FOR 90 DAYS [facility] predniSONE 10 mg tablet 3-0 10-01 00:00: 00 Yes TAKE 1 TABLET BY MOUTH EVERY DAY FOR 90 DAYS [facility] predniSONE 10 mg tablet 3-0 10-01 00:00: 00 Yes TAKE 1 TABLET BY MOUTH EVERY DAY FOR 90 DAYS [facility] predniSONE 10 mg tablet 3-0 10-01 00:00: 00 Yes TAKE 1 TABLET BY MOUTH EVERY DAY FOR 90 DAYS [facility] predniSONE 10 mg tablet 3-0 10-01 00:00: 00 Yes TAKE 1 TABLET BY MOUTH EVERY DAY FOR 90 DAYS [facility] predniSONE 10 mg tablet 3-0 10-01 00:00: 00 Yes TAKE 1 TABLET BY MOUTH EVERY DAY FOR 90 DAYS [facility] predniSONE 10 mg tablet 3-0 10-01 00:00: 00 Yes TAKE 1 TABLET BY MOUTH EVERY DAY FOR 90 DAYS [facility] predniSONE 10 mg tablet 3-0 10-01 00:00: 00 Yes TAKE 1 TABLET BY MOUTH EVERY DAY FOR 90 DAYS [facility] predniSONE 10 mg tablet 2023-0 10-01 00:00: 00 Yes TAKE 1 TABLET BY MOUTH EVERY DAY FOR 90 DAYS [facility] predniSONE 10 mg tablet 3-0 10-01 00:00: 00 Yes TAKE 1 TABLET BY MOUTH EVERY DAY FOR 90 DAYS [facility] predniSONE 10 mg tablet 3-0 10-01 00:00: 00 Yes TAKE 1 TABLET BY MOUTH EVERY DAY FOR 90 DAYS [facility] predniSONE 10 mg tablet 3-0 10-01 00:00: 00 Yes TAKE 1 TABLET BY MOUTH EVERY DAY FOR 90 DAYS [facility] predniSONE 10 mg tablet 3-0 10-01 00:00: 00 Yes TAKE 1 TABLET BY MOUTH EVERY DAY FOR 90 DAYS [facility] predniSONE 10 mg tablet 3-0 10-01 00:00: 00 Yes TAKE 1 TABLET BY MOUTH EVERY DAY FOR 90 DAYS [facility] predniSONE 10 mg tablet 3-0 10-01 00:00: 00 Yes TAKE 1 TABLET BY MOUTH EVERY DAY FOR 90 DAYS [facility] predniSONE 10 mg tablet 3-0 10-01 00:00: 00 Yes TAKE 1 TABLET BY MOUTH EVERY DAY FOR 90 DAYS [facility] predniSONE 10 mg tablet 3-0 10-01 00:00: 00 Yes TAKE 1 TABLET BY MOUTH EVERY DAY FOR 90 DAYS [facility] predniSONE 10 mg tablet 3-0 10-01 00:00: 00 Yes TAKE 1 TABLET BY MOUTH EVERY DAY FOR 90 DAYS [facility] predniSONE 10 mg tablet 3-0 10-01 00:00: 00 Yes TAKE 1 TABLET BY MOUTH EVERY DAY FOR 90 DAYS [facility] predniSONE 10 mg tablet 3-0 10-01 00:00: 00 Yes TAKE 1 TABLET BY MOUTH EVERY DAY FOR 90 DAYS [facility] predniSONE 10 mg tablet 3-0 10-01 00:00: 00 Yes TAKE 1 TABLET BY MOUTH EVERY DAY FOR 90 DAYS [facility] predniSONE 10 mg tablet 3-0 10-01 00:00: 00 Yes TAKE 1 TABLET BY MOUTH EVERY DAY FOR 90 DAYS [facility] predniSONE 10 mg tablet 3-0 10-01 00:00: 00 Yes TAKE 1 TABLET BY MOUTH EVERY DAY FOR 90 DAYS [facility] predniSONE 10 mg tablet 2022-0 3 00:00: 00 Yes TAKE 1 TABLET BY MOUTH EVERY DAY FOR 90 DAYS [facility] predniSONE 10 mg tablet 2022-0 3 00:00: 00 Yes TAKE 1 TABLET BY MOUTH EVERY DAY FOR 90 DAYS [facility] lisinopriL 2.5 mg tablet 2022-0 2- 00:00: 00 Yes [id number] 2.5mg Take 1 tablet by mouth in the morning. [facility] lisinopriL 2.5 mg tablet 2022-0 2 00:00: 00 Yes [id number] 2.5mg Take 1 tablet by mouth in the morning. [facility] lisinopriL 2.5 mg tablet 0 08-27 00:00: 00 12-10 00:00 :00 No [id number] 2.5mg Take 1 tablet by mouth in the morning. [facility] lisinopriL 2.5 mg tablet 2022-0 08-27 00:00: 00 12-10 00:00 :00 No [id number] 2.5mg Take 1 tablet by mouth in the morning. [facility] lisinopriL 2.5 mg tablet 2022-0 217 00:00: 00 Yes [id number] 2.5mg Take 1 tablet by mouth in the morning. [facility] lisinopriL 2.5 mg tablet 2022-0 217 00:00: 00 08-27 00:00 :00 No [id number] 2.5mg Take 1 tablet by mouth in the morning. [facility] furosemide 20 mg tablet 0 08-05 09:25: 33 Yes 1 tablet [facility] furosemide 20 mg tablet 0 08-05 09:25: 33 Yes 1 tablet [facility] furosemide 20 mg tablet 0 08-05 09:25: 33 Yes 1 tablet [facility] 0 08-05 09:25: 33 Yes 1 tablet [facility] furosemide 20 mg tablet 0 08-05 09:25: 33 Yes 1 tablet [facility] furosemide 20 mg tablet 08-05 09:25: 33 Yes 1 tablet [facility] furosemide 20 mg tablet 08-05 09:25: 33 Yes 1 tablet [facility] furosemide 20 mg tablet 08-05 09:25: 33 Yes 1 tablet [facility] furosemide 20 mg tablet 08-05 09:25: 33 Yes 1 tablet [facility] furosemide 20 mg tablet 08-05 09:25: 33 Yes 1 tablet [facility] furosemide 20 mg tablet 08-05 09:25: 33 Yes 1 tablet [facility] furosemide 20 mg tablet 08-05 09:25: 33 Yes 1 tablet [facility] furosemide 20 mg tablet 08-05 09:25: 33 Yes 1 tablet [facility] furosemide 20 mg tablet 08-05 09:25: 33 Yes 1 tablet [facility] furosemide 20 mg tablet 08-05 09:25: 33 Yes 1 tablet [facility] furosemide 20 mg tablet 08-05 09:25: 33 Yes 1 tablet [facility] furosemide 20 mg tablet 08-05 09:25: 33 Yes 1 tablet [facility] furosemide 20 mg tablet 08-05 09:25: 33 Yes 1 tablet [facility] furosemide 20 mg tablet 08-05 09:25: 33 Yes 1 tablet [facility] furosemide 20 mg tablet 08-05 09:25: 33 Yes 1 tablet [facility] furosemide 20 mg tablet 08-05 09:25: 33 Yes 1 tablet [facility] atorvastati n 40 mg tablet 08-05 09:25: 32 Yes 1{tbl} Take 1 tablet by mouth in the morning. [facility] topiramate 100 mg tablet 08-05 09:25: 32 Yes 1 tablet [facility] venlafaxine XR 150 mg 24 hr capsule 08-05 09:25: 32 Yes 1 capsule with food [facility] atorvastati n 40 mg tablet 08-05 09:25: 32 Yes 1{tbl} Take 1 tablet by mouth in the morning. [facility] topiramate 100 mg tablet 08-05 09:25: 32 Yes 1 tablet [facility] venlafaxine XR 150 mg 24 hr capsule 08-05 09:25: 32 Yes 1 capsule with food [facility] atorvastati n 40 mg tablet 08-05 09:25: 32 Yes 1{tbl} Take 1 tablet by mouth in the morning. [facility] topiramate 100 mg tablet 08-05 09:25: 32 Yes 1 tablet [facility] venlafaxine XR 150 mg 24 hr capsule 08-05 09:25: 32 Yes 1 capsule with food [facility] atorvastati n 40 mg tablet 08-05 09:25: 32 Yes 1{tbl} Take 1 tablet by mouth in the morning. [facility] topiramate 100 mg tablet 08-05 09:25: 32 Yes 1 tablet [facility] venlafaxine XR 150 mg 24 hr capsule 08-05 09:25: 32 Yes 1 capsule with food [facility] atorvastati n 40 mg tablet 08-05 09:25: 32 Yes 1{tbl} Take 1 tablet by mouth in the morning. [facility] topiramate 100 mg tablet 08-05 09:25: 32 Yes 1 tablet [facility] venlafaxine XR 150 mg 24 hr capsule 08-05 09:25: 32 Yes 1 capsule with food [facility] atorvastati n 40 mg tablet 08-05 09:25: 32 Yes 1{tbl} Take 1 tablet by mouth in the morning. [facility] topiramate 100 mg tablet 08-05 09:25: 32 Yes 1 tablet [facility] venlafaxine XR 150 mg 24 hr capsule 08-05 09:25: 32 Yes 1 capsule with food [facility] atorvastati n 40 mg tablet 08-05 09:25: 32 Yes 1{tbl} Take 1 tablet by mouth in the morning. [facility] topiramate 100 mg tablet 08-05 09:25: 32 Yes 1 tablet [facility] venlafaxine XR 150 mg 24 hr capsule 08-05 09:25: 32 Yes 1 capsule with food [facility] atorvastati n 40 mg tablet 08-05 09:25: 32 Yes 1{tbl} Take 1 tablet by mouth in the morning. [facility] topiramate 100 mg tablet 08-05 09:25: 32 Yes 1 tablet [facility] venlafaxine XR 150 mg 24 hr capsule 08-05 09:25: 32 Yes 1 capsule with food [facility] atorvastati n 40 mg tablet 08-05 09:25: 32 Yes 1{tbl} Take 1 tablet by mouth in the morning. [facility] topiramate 100 mg tablet 08-05 09:25: 32 Yes 1 tablet [facility] venlafaxine XR 150 mg 24 hr capsule 08-05 09:25: 32 Yes 1 capsule with food [facility] atorvastati n 40 mg tablet 08-05 09:25: 32 Yes 1{tbl} Take 1 tablet by mouth in the morning. [facility] topiramate 100 mg tablet 08-05 09:25: 32 Yes 1 tablet [facility] venlafaxine XR 150 mg 24 hr capsule 08-05 09:25: 32 Yes 1 capsule with food [facility] atorvastati n 40 mg tablet 08-05 09:25: 32 Yes 1{tbl} Take 1 tablet by mouth in the morning. [facility] atorvastati n 40 mg tablet 08-05 09:25: 32 Yes 1{tbl} Take 1 tablet by mouth in the morning. [facility] topiramate 100 mg tablet 08-05 09:25: 32 Yes 1 tablet [facility] venlafaxine XR 150 mg 24 hr capsule 08-05 09:25: 32 Yes 1 capsule with food [facility] topiramate 100 mg tablet 08-05 09:25: 32 Yes 1 tablet [facility] venlafaxine XR 150 mg 24 hr capsule 08-05 09:25: 32 Yes 1 capsule with food [facility] atorvastati n 40 mg tablet 08-05 09:25: 32 Yes 1{tbl} Take 1 tablet by mouth in the morning. [facility] topiramate 100 mg tablet 08-05 09:25: 32 Yes 1 tablet [facility] venlafaxine XR 150 mg 24 hr capsule 08-05 09:25: 32 Yes 1 capsule with food [facility] atorvastati n 40 mg tablet 08-05 09:25: 32 Yes 1{tbl} Take 1 tablet by mouth in the morning. [facility] topiramate 100 mg tablet 08-05 09:25: 32 Yes 1 tablet [facility] venlafaxine XR 150 mg 24 hr capsule 08-05 09:25: 32 Yes 1 capsule with food [facility] atorvastati n 40 mg tablet 08-05 09:25: 32 Yes 1{tbl} Take 1 tablet by mouth in the morning. [facility] topiramate 100 mg tablet 08-05 09:25: 32 Yes 1 tablet [facility] venlafaxine XR 150 mg 24 hr capsule 08-05 09:25: 32 Yes 1 capsule with food [facility] atorvastati n 40 mg tablet 08-05 09:25: 32 Yes 1{tbl} Take 1 tablet by mouth in the morning. [facility] topiramate 100 mg tablet 08-05 09:25: 32 Yes 1 tablet [facility] venlafaxine XR 150 mg 24 hr capsule 08-05 09:25: 32 Yes 1 capsule with food [facility] atorvastati n 40 mg tablet 08-05 09:25: 32 Yes 1{tbl} Take 1 tablet by mouth in the morning. [facility] topiramate 100 mg tablet 08-05 09:25: 32 Yes 1 tablet [facility] venlafaxine XR 150 mg 24 hr capsule 08-05 09:25: 32 Yes 1 capsule with food [facility] atorvastati n 40 mg tablet 08-05 09:25: 32 Yes 1{tbl} Take 1 tablet by mouth in the morning. [facility] topiramate 100 mg tablet 08-05 09:25: 32 Yes 1 tablet [facility] venlafaxine XR 150 mg 24 hr capsule 08-05 09:25: 32 Yes 1 capsule with food [facility] atorvastati n 40 mg tablet 08-05 09:25: 32 Yes 1{tbl} Take 1 tablet by mouth in the morning. [facility] topiramate 100 mg tablet 08-05 09:25: 32 Yes 1 tablet [facility] venlafaxine XR 150 mg 24 hr capsule 08-05 09:25: 32 Yes 1 capsule with food [facility] atorvastati n 40 mg tablet 08-05 09:25: 32 Yes 1{tbl} Take 1 tablet by mouth in the morning. [facility] topiramate 100 mg tablet 08-05 09:25: 32 Yes 1 tablet [facility] venlafaxine XR 150 mg 24 hr capsule 08-05 09:25: 32 Yes 1 capsule with food [facility] atorvastati n 40 mg tablet 08-05 09:25: 32 Yes 1{tbl} Take 1 tablet by mouth in the morning. [facility] topiramate 100 mg tablet 08-05 09:25: 32 Yes 1 tablet [facility] venlafaxine XR 150 mg 24 hr capsule 08-05 09:25: 32 Yes 1 capsule with food [facility] metoprolol succinate XL 25 mg 24 hr tablet 08-05 00:00: 00 Yes [id number] 25mg Take 1 tablet by mouth in the morning. [facility] metoprolol succinate XL 25 mg 24 hr tablet 08-05 00:00: 00 Yes [id number] 25mg Take 1 tablet by mouth in the morning. [facility] metoprolol succinate XL 25 mg 24 hr tablet 08-05 00:00: 00 Yes [id number] 25mg Take 1 tablet by mouth in the morning. [facility] metoprolol succinate XL 25 mg 24 hr tablet 08-05 00:00: 00 Yes [id number] 25mg Take 1 tablet by mouth in the morning. [facility] metoprolol succinate XL 25 mg 24 hr tablet 08-05 00:00: 00 Yes [id number] 25mg Take 1 tablet by mouth in the morning. [facility] metoprolol succinate XL 25 mg 24 hr tablet 08-05 00:00: 00 Yes [id number] 25mg Take 1 tablet by mouth in the morning. [facility] metoprolol succinate XL 25 mg 24 hr tablet 08-05 00:00: 00 Yes [id number] 25mg Take 1 tablet by mouth in the morning. [facility] metoprolol succinate XL 25 mg 24 hr tablet 08-05 00:00: 00 Yes [id number] 25mg Take 1 tablet by mouth in the morning. [facility] metoprolol succinate XL 25 mg 24 hr tablet 08-05 00:00: 00 Yes [id number] 25mg Take 1 tablet by mouth in the morning. [facility] metoprolol succinate XL 25 mg 24 hr tablet 0 08-05 00:00: 00 Yes [id number] 25mg Take 1 tablet by mouth in the morning. [facility] metoprolol succinate XL 25 mg 24 hr tablet 08-05 00:00: 00 Yes [id number] 25mg Take 1 tablet by mouth in the morning. [facility] metoprolol succinate XL 25 mg 24 hr tablet 08-05 00:00: 00 Yes [id number] 25mg Take 1 tablet by mouth in the morning. [facility] metoprolol succinate XL 25 mg 24 hr tablet 0 08-05 00:00: 00 Yes [id number] 25mg Take 1 tablet by mouth in the morning. [facility] metoprolol succinate XL 25 mg 24 hr tablet 08-05 00:00: 00 Yes [id number] 25mg Take 1 tablet by mouth in the morning. [facility] metoprolol succinate XL 25 mg 24 hr tablet 0 08-05 00:00: 00 Yes [id number] 25mg Take 1 tablet by mouth in the morning. [facility] metoprolol succinate XL 25 mg 24 hr tablet 0 08-05 00:00: 00 Yes [id number] 25mg Take 1 tablet by mouth in the morning. [facility] metoprolol succinate XL 25 mg 24 hr tablet 08-05 00:00: 00 Yes [id number] 25mg Take 1 tablet by mouth in the morning. [facility] metoprolol succinate XL 25 mg 24 hr tablet 0 08-05 00:00: 00 Yes [id number] 25mg Take 1 tablet by mouth in the morning. [facility] metoprolol succinate XL 25 mg 24 hr tablet 0 08-05 00:00: 00 Yes [id number] 25mg Take 1 tablet by mouth in the morning. [facility] metoprolol succinate XL 25 mg 24 hr tablet 0 08-05 00:00: 00 Yes [id number] 25mg Take 1 tablet by mouth in the morning. [facility] metoprolol succinate XL 25 mg 24 hr tablet 08-05 00:00: 00 Yes [id number] 25mg Take 1 tablet by mouth in the morning. [facility] metoprolol succinate XL 25 mg 24 hr tablet 08-05 00:00: 00 Yes [id number] 25mg Take 1 tablet by mouth in the morning. [facility] metoprolol succinate XL 25 mg 24 hr tablet 08-05 00:00: 00 Yes [id number] 25mg Take 1 tablet by mouth in the morning. [facility] metoprolol succinate XL 25 mg 24 hr tablet 08-05 00:00: 00 Yes [id number] 25mg Take 1 tablet by mouth in the morning. [facility] metoprolol succinate XL 25 mg 24 hr tablet 08-05 00:00: 00 Yes [id number] 25mg Take 1 tablet by mouth in the morning. [facility] metoprolol succinate XL 25 mg 24 hr tablet 08-05 00:00: 00 Yes [id number] 25mg Take 1 tablet by mouth in the morning. [facility] metoprolol succinate XL 25 mg 24 hr tablet 08-05 00:00: 00 Yes [id number] 25mg Take 1 tablet by mouth in the morning. [facility] metoprolol succinate XL 25 mg 24 hr tablet 08-05 00:00: 00 Yes [id number] 25mg Take 1 tablet by mouth in the morning. [facility] metoprolol succinate XL 25 mg 24 hr tablet 08-05 00:00: 00 Yes [id number] 25mg Take 1 tablet by mouth in the morning. [facility] metoprolol succinate XL 25 mg 24 hr tablet 08-05 00:00: 00 Yes [id number] 25mg Take 1 tablet by mouth in the morning. [facility] metoprolol succinate XL 25 mg 24 hr tablet 08-05 00:00: 00 Yes [id number] 25mg Take 1 tablet by mouth in the morning. [facility] metoprolol succinate XL 25 mg 24 hr tablet 08-05 00:00: 00 Yes [id number] 25mg Take 1 tablet by mouth in the morning. [facility] metoprolol succinate XL 25 mg 24 hr tablet 08-05 00:00: 00 Yes [id number] 25mg Take 1 tablet by mouth in the morning. [facility] metoprolol succinate XL 25 mg 24 hr tablet 08-05 00:00: 00 Yes [id number] 25mg Take 1 tablet by mouth in the morning. [facility] metoprolol succinate XL 25 mg 24 hr tablet 08-05 00:00: 00 Yes [id number] 25mg Take 1 tablet by mouth in the morning. [facility] metoprolol succinate XL 25 mg 24 hr tablet 08-05 00:00: 00 Yes [id number] 25mg Take 1 tablet by mouth in the morning. [facility] metoprolol succinate XL 25 mg 24 hr tablet 08-05 00:00: 00 Yes [id number] 25mg Take 1 tablet by mouth in the morning. [facility] metoprolol succinate XL 25 mg 24 hr tablet 08-05 00:00: 00 Yes [id number] 25mg Take 1 tablet by mouth in the morning. [facility] metoprolol succinate XL 25 mg 24 hr tablet 08-05 00:00: 00 Yes [id number] 25mg Take 1 tablet by mouth in the morning. [facility] metoprolol succinate XL 25 mg 24 hr tablet 08-05 00:00: 00 Yes [id number] 25mg Take 1 tablet by mouth in the morning. [facility] metoprolol succinate XL 25 mg 24 hr tablet 08-05 00:00: 00 05-27 00:00 :00 No [id number] 25mg Take 1 tablet by mouth in the morning. [facility] butalbital- acetaminoph en-caff 50-325-40 mg tablet 07-29 00:00: 00 Yes TAKE 1 TABLET BY MOUTH EVERY 4 HOURS [facility] butalbital- acetaminoph en-caff 50-325-40 mg tablet 3-0 24 00:00: 00 Yes TAKE 1 TABLET BY MOUTH EVERY 4 HOURS [facility] butalbital- acetaminoph en-caff 50-325-40 mg tablet 2023-0 24 00:00: 00 Yes TAKE 1 TABLET BY MOUTH EVERY 4 HOURS [facility] butalbital- acetaminoph en-caff 50-325-40 mg tablet 3-0 24 00:00: 00 Yes TAKE 1 TABLET BY MOUTH EVERY 4 HOURS [facility] butalbital- acetaminoph en-caff 50-325-40 mg tablet 3-0 24 00:00: 00 Yes TAKE 1 TABLET BY MOUTH EVERY 4 HOURS [facility] butalbital- acetaminoph en-caff 50-325-40 mg tablet 3-0 24 00:00: 00 Yes TAKE 1 TABLET BY MOUTH EVERY 4 HOURS [facility] butalbital- acetaminoph en-caff 50-325-40 mg tablet 3-0 24 00:00: 00 Yes TAKE 1 TABLET BY MOUTH EVERY 4 HOURS [facility] butalbital- acetaminoph en-caff 50-325-40 mg tablet 3-0 24 00:00: 00 Yes TAKE 1 TABLET BY MOUTH EVERY 4 HOURS [facility] butalbital- acetaminoph en-caff 50-325-40 mg tablet 3-0 24 00:00: 00 Yes TAKE 1 TABLET BY MOUTH EVERY 4 HOURS [facility] butalbital- acetaminoph en-caff 50-325-40 mg tablet 3-0 24 00:00: 00 Yes TAKE 1 TABLET BY MOUTH EVERY 4 HOURS [facility] butalbital- acetaminoph en-caff 50-325-40 mg tablet 3-0 24 00:00: 00 Yes TAKE 1 TABLET BY MOUTH EVERY 4 HOURS [facility] butalbital- acetaminoph en-caff 50-325-40 mg tablet 3-0 1-24 00:00: 00 Yes TAKE 1 TABLET BY MOUTH EVERY 4 HOURS [facility] butalbital- acetaminoph en-caff 50-325-40 mg tablet 3-0 24 00:00: 00 Yes TAKE 1 TABLET BY MOUTH EVERY 4 HOURS [facility] butalbital- acetaminoph en-caff 50-325-40 mg tablet 3-0 24 00:00: 00 Yes TAKE 1 TABLET BY MOUTH EVERY 4 HOURS [facility] butalbital- acetaminoph en-caff 50-325-40 mg tablet 3-0 24 00:00: 00 Yes TAKE 1 TABLET BY MOUTH EVERY 4 HOURS [facility] butalbital- acetaminoph en-caff 50-325-40 mg tablet 3-0 24 00:00: 00 Yes TAKE 1 TABLET BY MOUTH EVERY 4 HOURS [facility] [place] butalbital- acetaminoph en-caff 50-325-40 mg tablet 3-0 24 00:00: 00 Yes TAKE 1 TABLET BY MOUTH EVERY 4 HOURS [facility] butalbital- acetaminoph en-caff 50-325-40 mg tablet 3-0 24 00:00: 00 Yes TAKE 1 TABLET BY MOUTH EVERY 4 HOURS [facility] butalbital- acetaminoph en-caff 50-325-40 mg tablet 3-0 24 00:00: 00 Yes TAKE 1 TABLET BY MOUTH EVERY 4 HOURS [facility] butalbital- acetaminoph en-caff 50-325-40 mg tablet 3-0 24 00:00: 00 Yes TAKE 1 TABLET BY MOUTH EVERY 4 HOURS [facility] butalbital- acetaminoph en-caff 50-325-40 mg tablet 3-0 24 00:00: 00 Yes TAKE 1 TABLET BY MOUTH EVERY 4 HOURS [facility] butalbital- acetaminoph en-caff 50-325-40 mg tablet 3-0 24 00:00: 00 Yes TAKE 1 TABLET BY MOUTH EVERY 4 HOURS [facility] butalbital- acetaminoph en-caff 50-325-40 mg tablet 2023-0 24 00:00: 00 Yes TAKE 1 TABLET BY MOUTH EVERY 4 HOURS [facility] butalbital- acetaminoph en-caff 50-325-40 mg tablet 3-0 24 00:00: 00 Yes TAKE 1 TABLET BY MOUTH EVERY 4 HOURS [facility] butalbital- acetaminoph en-caff 50-325-40 mg tablet 3-0 24 00:00: 00 Yes TAKE 1 TABLET BY MOUTH EVERY 4 HOURS [facility] butalbital- acetaminoph en-caff 50-325-40 mg tablet 3-0 24 00:00: 00 Yes TAKE 1 TABLET BY MOUTH EVERY 4 HOURS [facility] butalbital- acetaminoph en-caff 50-325-40 mg tablet 3-0 24 00:00: 00 Yes TAKE 1 TABLET BY MOUTH EVERY 4 HOURS [facility] butalbital- acetaminoph en-caff 50-325-40 mg tablet 3-0 24 00:00: 00 Yes TAKE 1 TABLET BY MOUTH EVERY 4 HOURS [facility] butalbital- acetaminoph en-caff 50-325-40 mg tablet 3-0 24 00:00: 00 Yes TAKE 1 TABLET BY MOUTH EVERY 4 HOURS [facility] butalbital- acetaminoph en-caff 50-325-40 mg tablet 3-0 24 00:00: 00 Yes TAKE 1 TABLET BY MOUTH EVERY 4 HOURS [facility] butalbital- acetaminoph en-caff 50-325-40 mg tablet 3-0 24 00:00: 00 Yes TAKE 1 TABLET BY MOUTH EVERY 4 HOURS [facility] butalbital- acetaminoph en-caff 50-325-40 mg tablet 3-0 24 00:00: 00 Yes TAKE 1 TABLET BY MOUTH EVERY 4 HOURS [facility] butalbital- acetaminoph en-caff 50-325-40 mg tablet 2023-0 24 00:00: 00 Yes TAKE 1 TABLET BY MOUTH EVERY 4 HOURS [facility] butalbital- acetaminoph en-caff 50-325-40 mg tablet 2023-0 24 00:00: 00 Yes TAKE 1 TABLET BY MOUTH EVERY 4 HOURS [facility] butalbital- acetaminoph en-caff 50-325-40 mg tablet 2023-0 24 00:00: 00 Yes TAKE 1 TABLET BY MOUTH EVERY 4 HOURS [facility] butalbital- acetaminoph en-caff 50-325-40 mg tablet 3-0 24 00:00: 00 Yes TAKE 1 TABLET BY MOUTH EVERY 4 HOURS [facility] butalbital- acetaminoph en-caff 50-325-40 mg tablet 3-0 24 00:00: 00 Yes TAKE 1 TABLET BY MOUTH EVERY 4 HOURS [facility] butalbital- acetaminoph en-caff 50-325-40 mg tablet 3-0 24 00:00: 00 Yes TAKE 1 TABLET BY MOUTH EVERY 4 HOURS [facility] butalbital- acetaminoph en-caff 50-325-40 mg tablet 3-0 24 00:00: 00 Yes TAKE 1 TABLET BY MOUTH EVERY 4 HOURS [facility] butalbital- acetaminoph en-caff 50-325-40 mg tablet 3-0 24 00:00: 00 Yes TAKE 1 TABLET BY MOUTH EVERY 4 HOURS [facility] butalbital- acetaminoph en-caff 50-325-40 mg tablet 3-0 24 00:00: 00 Yes TAKE 1 TABLET BY MOUTH EVERY 4 HOURS [facility] butalbital- acetaminoph en-caff 50-325-40 mg tablet 3-0 24 00:00: 00 Yes TAKE 1 TABLET BY MOUTH EVERY 4 HOURS [facility] butalbital- acetaminoph en-caff 50-325-40 mg tablet 2023-0 24 00:00: 00 Yes TAKE 1 TABLET BY MOUTH EVERY 4 HOURS [facility] butalbital- acetaminoph en-caff 50-325-40 mg tablet 2023-0 -24 00:00: 00 Yes TAKE 1 TABLET BY MOUTH EVERY 4 HOURS [facility] butalbital- acetaminoph en-caff 50-325-40 mg tablet 07-29 00:00: 00 Yes TAKE 1 TABLET BY MOUTH EVERY 4 HOURS [facility] butalbital- acetaminoph en-caff 50-325-40 mg tablet 07-29 00:00: 00 Yes TAKE 1 TABLET BY MOUTH EVERY 4 HOURS [facility] TRELEGY ELLIPTA 100-62.5-25 mcg DsDv 07-28 00:00: 00 Yes INHALE 1 PUFF BY MOUTH EVERY DAY [facility] albuterol 90 mcg/actuati on inhaler 07-28 00:00: 00 Yes INHALE 2 PUFFS BY MOUTH 3 TO 4 TIMES DAILY 30 [facility] TRELEGY ELLIPTA 100-62.5-25 mcg DsDv 07-28 00:00: 00 Yes INHALE 1 PUFF BY MOUTH EVERY DAY [facility] albuterol 90 mcg/actuati on inhaler 07-28 00:00: 00 Yes INHALE 2 PUFFS BY MOUTH 3 TO 4 TIMES DAILY 30 [facility] TRELEGY ELLIPTA 100-62.5-25 mcg DsDv 07-28 00:00: 00 Yes INHALE 1 PUFF BY MOUTH EVERY DAY [facility] albuterol 90 mcg/actuati on inhaler 07-28 00:00: 00 Yes INHALE 2 PUFFS BY MOUTH 3 TO 4 TIMES DAILY 30 [facility] TRELEGY ELLIPTA 100-62.5-25 mcg DsDv 07-28 00:00: 00 Yes INHALE 1 PUFF BY MOUTH EVERY DAY [facility] TRELEGY ELLIPTA 100-62.5-25 mcg DsDv 07-28 00:00: 00 Yes INHALE 1 PUFF BY MOUTH EVERY DAY [facility] albuterol 90 mcg/actuati on inhaler 07-28 00:00: 00 Yes INHALE 2 PUFFS BY MOUTH 3 TO 4 TIMES DAILY 30 [facility] albuterol 90 mcg/actuati on inhaler 0 - 00:00: 00 Yes INHALE 2 PUFFS BY MOUTH 3 TO 4 TIMES DAILY 30 [facility] TRELEGY ELLIPTA 100-62.5-25 mcg DsDv 07-28 00:00: 00 Yes INHALE 1 PUFF BY MOUTH EVERY DAY [facility] albuterol 90 mcg/actuati on inhaler 07-28 00:00: 00 Yes INHALE 2 PUFFS BY MOUTH 3 TO 4 TIMES DAILY 30 [facility] TRELEGY ELLIPTA 100-62.5-25 mcg DsDv 07-28 00:00: 00 Yes INHALE 1 PUFF BY MOUTH EVERY DAY [facility] albuterol 90 mcg/actuati on inhaler 07-28 00:00: 00 Yes INHALE 2 PUFFS BY MOUTH 3 TO 4 TIMES DAILY 30 [facility] TRELEGY ELLIPTA 100-62.5-25 mcg DsDv 07-28 00:00: 00 Yes INHALE 1 PUFF BY MOUTH EVERY DAY [facility] albuterol 90 mcg/actuati on inhaler 07-28 00:00: 00 Yes INHALE 2 PUFFS BY MOUTH 3 TO 4 TIMES DAILY 30 [facility] TRELEGY ELLIPTA 100-62.5-25 mcg DsDv 07-28 00:00: 00 Yes INHALE 1 PUFF BY MOUTH EVERY DAY [facility] albuterol 90 mcg/actuati on inhaler 0 07-28 00:00: 00 Yes INHALE 2 PUFFS BY MOUTH 3 TO 4 TIMES DAILY 30 [facility] TRELEGY ELLIPTA 100-62.5-25 mcg DsDv 07-28 00:00: 00 Yes INHALE 1 PUFF BY MOUTH EVERY DAY [facility] albuterol 90 mcg/actuati on inhaler 0 07-28 00:00: 00 Yes INHALE 2 PUFFS BY MOUTH 3 TO 4 TIMES DAILY 30 [facility] TRELEGY ELLIPTA 100-62.5-25 mcg DsDv 07-28 00:00: 00 Yes INHALE 1 PUFF BY MOUTH EVERY DAY [facility] albuterol 90 mcg/actuati on inhaler 07-28 00:00: 00 Yes INHALE 2 PUFFS BY MOUTH 3 TO 4 TIMES DAILY 30 [facility] TRELEGY ELLIPTA 100-62.5-25 mcg DsDv 07-28 00:00: 00 Yes INHALE 1 PUFF BY MOUTH EVERY DAY [facility] albuterol 90 mcg/actuati on inhaler 07-28 00:00: 00 Yes INHALE 2 PUFFS BY MOUTH 3 TO 4 TIMES DAILY 30 [facility] TRELEGY ELLIPTA 100-62.5-25 mcg DsDv 07-28 00:00: 00 Yes INHALE 1 PUFF BY MOUTH EVERY DAY [facility] TRELEGY ELLIPTA 100-62.5-25 mcg DsDv 07-28 00:00: 00 Yes INHALE 1 PUFF BY MOUTH EVERY DAY [facility] albuterol 90 mcg/actuati on inhaler 07-28 00:00: 00 Yes INHALE 2 PUFFS BY MOUTH 3 TO 4 TIMES DAILY 30 [facility] albuterol 90 mcg/actuati on inhaler 07-28 00:00: 00 Yes INHALE 2 PUFFS BY MOUTH 3 TO 4 TIMES DAILY 30 [facility] TRELEGY ELLIPTA 100-62.5-25 mcg DsDv 07-28 00:00: 00 Yes INHALE 1 PUFF BY MOUTH EVERY DAY [facility] albuterol 90 mcg/actuati on inhaler 0 07-28 00:00: 00 Yes INHALE 2 PUFFS BY MOUTH 3 TO 4 TIMES DAILY 30 [facility] TRELEGY ELLIPTA 100-62.5-25 mcg DsDv 07-28 00:00: 00 Yes INHALE 1 PUFF BY MOUTH EVERY DAY [facility] albuterol 90 mcg/actuati on inhaler 07-28 00:00: 00 Yes INHALE 2 PUFFS BY MOUTH 3 TO 4 TIMES DAILY 30 [facility] TRELEGY ELLIPTA 100-62.5-25 mcg DsDv 0 07-28 00:00: 00 Yes INHALE 1 PUFF BY MOUTH EVERY DAY [facility] albuterol 90 mcg/actuati on inhaler 0 07-28 00:00: 00 Yes INHALE 2 PUFFS BY MOUTH 3 TO 4 TIMES DAILY 30 [facility] TRELEGY ELLIPTA 100-62.5-25 mcg DsDv 0 07-28 00:00: 00 Yes INHALE 1 PUFF BY MOUTH EVERY DAY [facility] albuterol 90 mcg/actuati on inhaler 0 07-28 00:00: 00 Yes INHALE 2 PUFFS BY MOUTH 3 TO 4 TIMES DAILY 30 [facility] TRELEGY ELLIPTA 100-62.5-25 mcg DsDv 07-28 00:00: 00 Yes INHALE 1 PUFF BY MOUTH EVERY DAY [facility] albuterol 90 mcg/actuati on inhaler 0 07-28 00:00: 00 Yes INHALE 2 PUFFS BY MOUTH 3 TO 4 TIMES DAILY 30 [facility] TRELEGY ELLIPTA 100-62.5-25 mcg DsDv 07-28 00:00: 00 Yes INHALE 1 PUFF BY MOUTH EVERY DAY [facility] albuterol 90 mcg/actuati on inhaler 0 07-28 00:00: 00 Yes INHALE 2 PUFFS BY MOUTH 3 TO 4 TIMES DAILY 30 [facility] TRELEGY ELLIPTA 100-62.5-25 mcg DsDv 0 07-28 00:00: 00 Yes INHALE 1 PUFF BY MOUTH EVERY DAY [facility] albuterol 90 mcg/actuati on inhaler 0 07-28 00:00: 00 Yes INHALE 2 PUFFS BY MOUTH 3 TO 4 TIMES DAILY 30 [facility] TRELEGY ELLIPTA 100-62.5-25 mcg DsDv 0 07-28 00:00: 00 Yes INHALE 1 PUFF BY MOUTH EVERY DAY [facility] TRELEGY ELLIPTA 100-62.5-25 mcg DsDv - 00:00: 00 Yes INHALE 1 PUFF BY MOUTH EVERY DAY [facility] albuterol 90 mcg/actuati on inhaler - 00:00: 00 Yes INHALE 2 PUFFS BY MOUTH 3 TO 4 TIMES DAILY 30 [facility] albuterol 90 mcg/actuati on inhaler 07-28 00:00: 00 Yes INHALE 2 PUFFS BY MOUTH 3 TO 4 TIMES DAILY 30 [facility] TRELEGY ELLIPTA 100-62.5-25 mcg DsDv 07-28 00:00: 00 Yes INHALE 1 PUFF BY MOUTH EVERY DAY [facility] albuterol 90 mcg/actuati on inhaler 07-28 00:00: 00 Yes INHALE 2 PUFFS BY MOUTH 3 TO 4 TIMES DAILY 30 [facility] TRELEGY ELLIPTA 100-62.5-25 mcg DsDv 07-28 00:00: 00 Yes INHALE 1 PUFF BY MOUTH EVERY DAY [facility] albuterol 90 mcg/actuati on inhaler 07-28 00:00: 00 Yes INHALE 2 PUFFS BY MOUTH 3 TO 4 TIMES DAILY 30 [facility] TRELEGY ELLIPTA 100-62.5-25 mcg DsDv 07-28 00:00: 00 Yes INHALE 1 PUFF BY MOUTH EVERY DAY [facility] albuterol 90 mcg/actuati on inhaler 07-28 00:00: 00 Yes INHALE 2 PUFFS BY MOUTH 3 TO 4 TIMES DAILY 30 [facility] TRELEGY ELLIPTA 100-62.5-25 mcg DsDv 07-28 00:00: 00 Yes INHALE 1 PUFF BY MOUTH EVERY DAY [facility] albuterol 90 mcg/actuati on inhaler 0 - 00:00: 00 Yes INHALE 2 PUFFS BY MOUTH 3 TO 4 TIMES DAILY 30 [facility] TRELEGY ELLIPTA 100-62.5-25 mcg DsDv 07-28 00:00: 00 Yes INHALE 1 PUFF BY MOUTH EVERY DAY [facility] albuterol 90 mcg/actuati on inhaler 07-28 00:00: 00 Yes INHALE 2 PUFFS BY MOUTH 3 TO 4 TIMES DAILY 30 [facility] TRELEGY ELLIPTA 100-62.5-25 mcg DsDv 07-28 00:00: 00 Yes INHALE 1 PUFF BY MOUTH EVERY DAY [facility] albuterol 90 mcg/actuati on inhaler 07-28 00:00: 00 Yes INHALE 2 PUFFS BY MOUTH 3 TO 4 TIMES DAILY 30 [facility] TRELEGY ELLIPTA 100-62.5-25 mcg DsDv 07-28 00:00: 00 Yes INHALE 1 PUFF BY MOUTH EVERY DAY [facility] albuterol 90 mcg/actuati on inhaler 07-28 00:00: 00 Yes INHALE 2 PUFFS BY MOUTH 3 TO 4 TIMES DAILY 30 [facility] TRELEGY ELLIPTA 100-62.5-25 mcg DsDv 07-28 00:00: 00 Yes INHALE 1 PUFF BY MOUTH EVERY DAY [facility] albuterol 90 mcg/actuati on inhaler 07-28 00:00: 00 Yes INHALE 2 PUFFS BY MOUTH 3 TO 4 TIMES DAILY 30 [facility] TRELEGY ELLIPTA 100-62.5-25 mcg DsDv 07-28 00:00: 00 Yes INHALE 1 PUFF BY MOUTH EVERY DAY [facility] albuterol 90 mcg/actuati on inhaler 07-28 00:00: 00 Yes INHALE 2 PUFFS BY MOUTH 3 TO 4 TIMES DAILY 30 [facility] TRELEGY ELLIPTA 100-62.5-25 mcg DsDv 0 07-28 00:00: 00 Yes INHALE 1 PUFF BY MOUTH EVERY DAY [facility] TRELEGY ELLIPTA 100-62.5-25 mcg DsDv 07-28 00:00: 00 Yes INHALE 1 PUFF BY MOUTH EVERY DAY [facility] 0 - 00:00: 00 Yes INHALE 2 PUFFS BY MOUTH 3 TO 4 TIMES DAILY 30 [facility] albuterol 90 mcg/actuati on inhaler 0 07-28 00:00: 00 Yes INHALE 2 PUFFS BY MOUTH 3 TO 4 TIMES DAILY [facility] TRE[facility] 100-62.5-25 mcg DsDv 0 - 00:00: 00 Yes INHALE 1 PUFF BY MOUTH EVERY DAY [facility]actuati on inhaler 0 07-28 00:00: 00 Yes INHALE 2 PUFFS BY MOUTH 3 TO 4 TIMES DAILY [facility] TRE[facility] ELL[facility]TA 100-62.5-25 mcg DsDv 07-28 00:00: 00 Yes INHALE 1 PUFF BY MOUTH EVERY DAY [facility] albuterol 90 mcg/actuati on inhaler 0 07-28 00:00: 00 Yes INHALE 2 PUFFS BY MOUTH 3 TO 4 TIMES DAILY 30 [facility] TRELEGY ELLIPTA 100-62.5-25 mcg DsDv 0 07-28 00:00: 00 Yes INHALE 1 PUFF BY MOUTH EVERY DAY [facility] albuterol 90 mcg/actuati on inhaler 0 07-28 00:00: 00 Yes INHALE 2 PUFFS BY MOUTH 3 TO 4 TIMES DAILY [facility]RE[facility] 100-62.5-25 mcg DsDv 0 07-28 00:00: 00 Yes INHALE 1 PUFF BY MOUTH EVERY DAY [facility] albuterol 90 mcg/actuati on inhaler 0 - 00:00: 00 Yes INHALE 2 PUFFS BY MOUTH 3 TO 4 TIMES DAILY [facility] 100-62.5-25 mcg DsDv 0 - 00:00: 00 Yes INHALE 1 PUFF BY MOUTH EVERY DAY [facility] albuterol 90 mcg/actuati on inhaler 07-28 00:00: 00 Yes INHALE 2 PUFFS BY MOUTH 3 TO 4 TIMES DAILY 30 [facility] TRELEGY ELLIPTA 100-62.5-25 mcg DsDv 07-28 00:00: 00 Yes INHALE 1 PUFF BY MOUTH EVERY DAY [facility] albuterol 90 mcg/actuati on inhaler 07-28 00:00: 00 Yes INHALE 2 PUFFS BY MOUTH 3 TO 4 TIMES DAILY 30 [facility] TRELEGY ELLIPTA 100-62.5-25 mcg DsDv 07-28 00:00: 00 Yes INHALE 1 PUFF BY MOUTH EVERY DAY [facility]actuati [facility] inhaler 07-28 00:00: 00 Yes INHALE 2 PUFFS BY MOUTH 3 TO 4 TIMES DAILY 30 [facility] TRELEGY ELLIPTA 100-62.5-25 mcg DsDv 07-28 00:00: 00 Yes INHALE 1 PUFF BY MOUTH EVERY DAY [facility] TRELEGY ELLIPTA 100-62.5-25 mcg DsDv 07-28 00:00: 00 Yes INHALE 1 PUFF BY MOUTH EVERY DAY [facility] albuterol 90 mcg/actuati on inhaler 07-28 00:00: 00 Yes INHALE 2 PUFFS BY MOUTH 3 TO 4 TIMES DAILY 30 [facility] albuterol 90 mcg/actuati on inhaler 07-28 00:00: 00 Yes INHALE 2 PUFFS BY MOUTH 3 TO 4 TIMES DAILY 30 [facility] TRELEGY ELLIPTA 100-62.5-25 mcg DsDv 07-28 00:00: 00 Yes INHALE 1 PUFF BY MOUTH EVERY DAY [facility] albuterol 90 mcg/actuati on inhaler 07-28 00:00: 00 Yes INHALE 2 PUFFS BY MOUTH 3 TO 4 TIMES DAILY 30 [facility] TRELEGY ELLIPTA 100-62.5-25 mcg DsDv 07-28 00:00: 00 Yes INHALE 1 PUFF [facility] 07-28 00:00: 00 Yes INHALE 2 PUFFS BY MOUTH 3 TO 4 TIMES DAILY 30 [facility] TRE[facility] ELLIPTA 100-62.5-25 mcg DsDv 07-28 00:00: 00 Yes INHALE 1 PUFF BY MOUTH EVERY DAY [facility] m[facility]/actuati on inhaler 07-28 00:00: 00 Yes INHALE 2 PUFFS BY MOUTH 3 TO 4 TIMES DAILY [facility] met[facility] succinate XL 50 mg 24 hr tablet 07-26 00:00: 00 Yes TAKE 1 TABLET BY MOUTH EVERY DAY FOR 90 DAYS [facility] succ[facility] XL 50 mg 24 hr tablet 0 07-26 00:00: 00 Yes TAKE 1 TABLET BY MOUTH EVERY DAY FOR [facility] DAYS [facility] succ[facility] XL 50 mg 24 hr tablet 0 07-26 00:00: 00 Yes TAKE 1 TABLET BY MOUTH EVERY DAY FOR [facility]YS [facility] succ[facility] XL 50 mg 24 hr tablet 0 07-26 00:00: 00 Yes TAKE 1 TABLET BY MOUTH EVERY DAY FOR 90 DAYS [facility] succ[facility] XL 50 mg 24 hr tablet 0 07-26 00:00: 00 Yes TAKE 1 TABLET BY MOUTH EVERY DAY FOR 90 DAYS [facility] metoprolol succinate XL 50 mg 24 hr tablet 0 07-26 00:00: 00 Yes TAKE 1 TABLET BY MOUTH EVERY DAY FOR [facility] XL 50 mg 24 hr tablet 0 07-26 00:00: 00 Yes TAKE 1 TABLET BY MOUTH EVERY DAY FOR 90 DAYS [facility] succ[facility] XL 50 mg 24 hr tablet 0 07-26 00:00: 00 Yes TAKE 1 TABLET BY MOUTH EVERY DAY FOR 90 DAYS [facility] succ[facility] XL 50 mg 24 hr tablet 0 07-26 00:00: 00 Yes TAKE 1 TABLET BY MOUTH EVERY DAY FOR 90 DAYS [facility] metoprolol succinate XL 50 mg 24 hr tablet 0 07-26 00:00: 00 Yes TAKE 1 TABLET BY MOUTH EVERY DAY FOR 90 DAYS [facility] metoprolol succinate XL 50 mg 24 hr tablet 2022-0 07-26 00:00: 00 Yes TAKE 1 TABLET BY MOUTH EVERY DAY FOR 90 DAYS [facility] metoprolol succinate XL 50 mg 24 hr tablet 0 07-26 00:00: 00 Yes TAKE 1 TABLET BY MOUTH EVERY DAY FOR 90 DAYS [facility] metoprolol succinate XL 50 mg 24 hr tablet 2022-0 07-26 00:00: 00 Yes TAKE 1 TABLET BY MOUTH EVERY DAY [facility] succ[facility] XL 50 mg 24 hr tablet 0 07-26 00:00: 00 Yes TAKE 1 TABLET BY MOUTH EVERY DAY FOR 90 DAYS [facility] metoprolol succinate XL 50 mg 24 hr tablet 0 07-26 00:00: 00 Yes TAKE 1 TABLET BY MOUTH EVERY DAY FOR [facility] met[facility] succinate XL 50 mg 24 hr tablet 0 07-26 00:00: 00 Yes TAKE 1 TABLET BY MOUTH EVERY DAY FOR [facility] XL 50 mg 24 hr tablet 0 07-26 00:00: 00 Yes TAKE 1 TABLET BY MOUTH EVERY DAY FOR 90 DAYS [facility] metoprolol succinate XL 50 mg 24 hr tablet 0 07-26 00:00: 00 Yes TAKE 1 TABLET BY MOUTH EVERY DAY FOR 90 DAYS [facility] metoprolol succinate XL 50 mg 24 hr tablet 0 07-26 00:00: 00 Yes TAKE 1 TABLET BY MOUTH EVERY DAY FOR 90 DAYS [facility] metoprolol succinate XL 50 mg 24 hr tablet 0 07-26 00:00: 00 Yes TAKE 1 TABLET BY MOUTH EVERY DAY FOR 90 DAYS [facility] metoprolol succinate XL 50 mg 24 hr tablet 2022-0 07-26 00:00: 00 Yes TAKE 1 TABLET BY MOUTH EVERY DAY FOR 90 DAYS [facility] metoprolol succinate XL 50 mg 24 hr tablet 2022-0 07-26 00:00: 00 Yes TAKE 1 TABLET BY MOUTH EVERY DAY FOR 90 DAYS [facility] metoprolol succinate XL 50 mg 24 hr tablet 2022-0 07-26 00:00: 00 Yes TAKE 1 TABLET BY MOUTH EVERY DAY FOR 90 DAYS [facility] metoprolol succinate XL 50 mg 24 hr tablet 2022-0 07-26 00:00: 00 Yes TAKE 1 TABLET BY MOUTH EVERY DAY FOR 90 DAYS [facility] metoprolol succinate XL 50 mg 24 hr tablet 2022-0 07-26 00:00: 00 Yes TAKE 1 TABLET BY MOUTH EVERY DAY FOR 90 DAYS [facility] metoprolol succinate XL 50 mg 24 hr tablet 2022-0 07-26 00:00: 00 Yes TAKE 1 TABLET BY MOUTH EVERY DAY FOR 90 DAYS [facility] metoprolol succinate XL 50 mg 24 hr tablet 2022-0 07-26 00:00: 00 Yes TAKE 1 TABLET BY MOUTH EVERY DAY FOR 90 DAYS [facility] metoprolol succinate XL 50 mg 24 hr tablet 0 07-26 00:00: 00 Yes TAKE 1 TABLET BY MOUTH EVERY DAY FOR 90 DAYS [facility] metoprolol succinate XL 50 mg 24 hr tablet 0 07-26 00:00: 00 Yes TAKE 1 TABLET BY MOUTH EVERY DAY FOR 90 DAYS [facility] metoprolol succinate XL 50 mg 24 hr tablet 2022-0 07-26 00:00: 00 Yes TAKE 1 TABLET BY MOUTH EVERY DAY FOR 90 DAYS [facility] metoprolol succinate XL 50 mg 24 hr tablet 2022-0 07-26 00:00: 00 Yes TAKE 1 TABLET BY MOUTH EVERY DAY FOR 90 DAYS [facility] metoprolol succinate XL 50 mg 24 hr tablet 2022-0 07-26 00:00: 00 Yes TAKE 1 TABLET BY MOUTH EVERY DAY FOR 90 DAYS [facility] metoprolol succinate XL 50 mg 24 hr tablet 2022-0 07-26 00:00: 00 Yes TAKE 1 TABLET BY MOUTH EVERY DAY FOR 90 DAYS [facility] metoprolol succinate XL 50 mg 24 hr tablet 2022-0 07-26 00:00: 00 Yes TAKE 1 TABLET BY MOUTH EVERY DAY [facility] 50 mg 24 hr tablet 2022-0 07-26 00:00: 00 Yes TAKE 1 TABLET BY MOUTH EVERY DAY FOR 90 DAYS [facility] metoprolol succinate XL 50 mg 24 hr tablet 2022-0 07-26 00:00: 00 Yes TAKE 1 TABLET BY MOUTH EVERY DAY FOR 90 DAYS [facility] metoprolol succinate XL 50 mg 24 hr tablet 2022-0 07-26 00:00: 00 Yes TAKE 1 TABLET BY MOUTH EVERY DAY [facility] 50 mg 24 hr tablet 2022-0 07-26 00:00: 00 Yes TAKE 1 TABLET BY MOUTH EVERY DAY FOR 90 DAYS [facility] succ[facility] XL 50 mg 24 hr tablet 2022-0 07-26 00:00: 00 Yes TAKE 1 TABLET BY MOUTH EVERY DAY FOR [facility] DAYS [facility] succ[facility] XL 50 mg 24 hr tablet 0 07-26 00:00: 00 Yes TAKE 1 TABLET BY MOUTH EVERY DAY FOR [facility] DAYS [facility] XL 50 mg 24 hr tablet 0 07-26 00:00: 00 05-27 00:00 :00 No TAKE 1 TABLET BY MOUTH EVERY DAY FOR 90 DAYS [facility] tamsulosin 0.4 mg 24 hr capsule 2022-0 07-25 00:00: 00 Yes TAKE 1 CAPSULE BY MOUTH EVERY DAY FOR 30 DAYS [facility] tamsulosin 0.4 mg 24 hr capsule 2022-0 07-25 00:00: 00 Yes TAKE 1 CAPSULE BY MOUTH EVERY DAY FOR 30 DAYS [facility] tamsulosin 0.4 mg 24 hr capsule 2022-0 07-25 00:00: 00 Yes TAKE 1 CAPSULE BY MOUTH EVERY DAY FOR [facility] 0.4 mg 24 hr capsule 3-0 07-25 00:00: 00 Yes TAKE 1 CAPSULE BY MOUTH EVERY DAY FOR [facility]YS [facility] t[facility] 0.4 mg 24 hr capsule 3-0 07-25 00:00: 00 Yes TAKE 1 CAPSULE BY MOUTH EVERY DAY FOR 30 DAYS [facility] tamsulosin 0.4 mg 24 hr capsule 3-0 1-20 00:00: 00 Yes TAKE 1 CAPSULE BY MOUTH EVERY DAY FOR 30 DAYS [facility] tamsulosin 0.4 mg 24 hr capsule 3-0 1-20 00:00: 00 Yes TAKE 1 CAPSULE BY MOUTH EVERY DAY FOR 30 DAYS [facility] tamsulosin 0.4 mg 24 hr capsule 3-0 1-20 00:00: 00 Yes TAKE 1 CAPSULE BY MOUTH EVERY DAY FOR 30 DAYS [facility] tamsulosin 0.4 mg 24 hr capsule 3-0 1-20 00:00: 00 Yes TAKE 1 CAPSULE BY MOUTH EVERY DAY FOR 30 DAYS [facility] tamsulosin 0.4 mg 24 hr capsule 3-0 1-20 00:00: 00 Yes TAKE 1 CAPSULE BY MOUTH EVERY DAY FOR 30 DAYS [facility] tamsulosin 0.4 mg 24 hr capsule 3-0 -20 00:00: 00 Yes TAKE 1 CAPSULE BY MOUTH EVERY DAY FOR 30 DAYS [facility] tamsulosin 0.4 mg 24 hr capsule 3-0 1-20 00:00: 00 Yes TAKE 1 CAPSULE BY MOUTH EVERY DAY FOR 30 DAYS [facility] tamsulosin 0.4 mg 24 hr capsule 3-0 1-20 00:00: 00 Yes TAKE 1 CAPSULE BY MOUTH EVERY DAY FOR 30 DAYS [facility] tamsulosin 0.4 mg 24 hr capsule 3-0 1-20 00:00: 00 Yes TAKE 1 CAPSULE BY MOUTH EVERY DAY FOR 30 DAYS [facility] tamsulosin 0.4 mg 24 hr capsule 3-0 1-20 00:00: 00 Yes TAKE 1 CAPSULE BY MOUTH EVERY DAY FOR 30 DAYS [facility] tamsulosin 0.4 mg 24 hr capsule 3-0 1-20 00:00: 00 Yes TAKE 1 CAPSULE BY MOUTH EVERY DAY FOR 30 DAYS [facility] tamsulosin 0.4 mg 24 hr capsule 3-0 1-20 00:00: 00 Yes TAKE 1 CAPSULE BY MOUTH EVERY DAY FOR 30 DAYS [facility] tamsulosin 0.4 mg 24 hr capsule 2023-0 1-20 00:00: 00 Yes TAKE 1 CAPSULE BY MOUTH EVERY DAY FOR 30 DAYS [facility] tamsulosin 0.4 mg 24 hr capsule 3-0 1-20 00:00: 00 Yes TAKE 1 CAPSULE BY MOUTH EVERY DAY FOR 30 DAYS [facility] tamsulosin 0.4 mg 24 hr capsule 3-0 -20 00:00: 00 Yes TAKE 1 CAPSULE BY MOUTH EVERY DAY FOR 30 DAYS [facility] tamsulosin 0.4 mg 24 hr capsule 3-0 1-20 00:00: 00 Yes TAKE 1 CAPSULE BY MOUTH EVERY DAY FOR 30 DAYS [facility] tamsulosin 0.4 mg 24 hr capsule 3-0 -20 00:00: 00 Yes TAKE 1 CAPSULE BY MOUTH EVERY DAY FOR 30 DAYS [facility] tamsulosin 0.4 mg 24 hr capsule 3-0 -20 00:00: 00 Yes TAKE 1 CAPSULE BY MOUTH EVERY DAY FOR 30 DAYS [facility] tamsulosin 0.4 mg 24 hr capsule 3-0 -20 00:00: 00 Yes TAKE 1 CAPSULE BY MOUTH EVERY DAY FOR 30 DAYS [facility] tamsulosin 0.4 mg 24 hr capsule 3-0 -20 00:00: 00 Yes TAKE 1 CAPSULE BY MOUTH EVERY DAY FOR 30 DAYS [facility] tamsulosin 0.4 mg 24 hr capsule 3-0 -20 00:00: 00 Yes TAKE 1 CAPSULE BY MOUTH EVERY DAY FOR 30 DAYS [facility] tamsulosin 0.4 mg 24 hr capsule 3-0 1-20 00:00: 00 Yes TAKE 1 CAPSULE BY MOUTH EVERY DAY FOR 30 DAYS [facility] tamsulosin 0.4 mg 24 hr capsule 3-0 1-20 00:00: 00 Yes TAKE 1 CAPSULE BY MOUTH EVERY DAY FOR 30 DAYS [facility] tamsulosin 0.4 mg 24 hr capsule 3-0 1-20 00:00: 00 Yes TAKE 1 CAPSULE BY MOUTH EVERY DAY FOR 30 DAYS [facility] tamsulosin 0.4 mg 24 hr capsule 3-0 1-20 00:00: 00 Yes TAKE 1 CAPSULE BY MOUTH EVERY DAY FOR 30 DAYS [facility] tamsulosin 0.4 mg 24 hr capsule 3-0 1-20 00:00: 00 Yes TAKE 1 CAPSULE BY MOUTH EVERY DAY FOR 30 DAYS [facility] tamsulosin 0.4 mg 24 hr capsule 3-0 1-20 00:00: 00 Yes TAKE 1 CAPSULE BY MOUTH EVERY DAY FOR 30 DAYS [facility] tamsulosin 0.4 mg 24 hr capsule 3-0 1-20 00:00: 00 Yes TAKE 1 CAPSULE BY MOUTH EVERY DAY FOR 30 DAYS [facility] tamsulosin 0.4 mg 24 hr capsule 3-0 1-20 00:00: 00 Yes TAKE 1 CAPSULE BY MOUTH EVERY DAY FOR 30 DAYS [facility] tamsulosin 0.4 mg 24 hr capsule 3-0 1-20 00:00: 00 Yes TAKE 1 CAPSULE BY MOUTH EVERY DAY FOR 30 DAYS [facility] tamsulosin 0.4 mg 24 hr capsule 3-0 -20 00:00: 00 Yes TAKE 1 CAPSULE BY MOUTH EVERY DAY FOR 30 DAYS [facility] tamsulosin 0.4 mg 24 hr capsule 3-0 1-20 00:00: 00 Yes TAKE 1 CAPSULE BY MOUTH EVERY DAY FOR 30 DAYS [facility] tamsulosin 0.4 mg 24 hr capsule 3-0 1-20 00:00: 00 Yes TAKE 1 CAPSULE BY MOUTH EVERY DAY FOR 30 DAYS [facility] tamsulosin 0.4 mg 24 hr capsule 3-0 1-20 00:00: 00 Yes TAKE 1 CAPSULE BY MOUTH EVERY DAY FOR 30 DAYS [facility] tamsulosin 0.4 mg 24 hr capsule 3-0 1-20 00:00: 00 Yes TAKE 1 CAPSULE BY MOUTH EVERY DAY FOR 30 DAYS [facility] tamsulosin 0.4 mg 24 hr capsule 3-0 1-20 00:00: 00 Yes TAKE 1 CAPSULE BY MOUTH EVERY DAY FOR 30 DAYS [facility] tamsulosin 0.4 mg 24 hr capsule 3-0 1-20 00:00: 00 Yes TAKE 1 CAPSULE BY MOUTH EVERY DAY FOR 30 DAYS [facility] tamsulosin 0.4 mg 24 hr capsule 3-0 -20 00:00: 00 Yes TAKE 1 CAPSULE BY MOUTH EVERY DAY FOR 30 DAYS [facility] tamsulosin 0.4 mg 24 hr capsule 3-0 -20 00:00: 00 Yes TAKE 1 CAPSULE BY MOUTH EVERY DAY FOR 30 DAYS [facility] tamsulosin 0.4 mg 24 hr capsule 3-0 20 00:00: 00 Yes TAKE 1 CAPSULE BY MOUTH EVERY DAY FOR 30 DAYS [facility] tamsulosin 0.4 mg 24 hr capsule 3-0 20 00:00: 00 Yes TAKE 1 CAPSULE BY MOUTH EVERY DAY FOR 30 DAYS [facility] QUEtiapine 400 mg tablet 3-0 -14 00:00: 00 Yes 400mg Take 400 mg by mouth in the morning and 400 mg in the evening. [facility] QUEtiapine 400 mg tablet 3-0 -14 00:00: 00 Yes 400mg Take 1 tablet by mouth in the morning and 1 tablet in the evening. [facility] QUEtiapine 400 mg tablet 3-0 -14 00:00: 00 Yes 400mg Take 1 tablet by mouth in the morning and 1 tablet in the evening. [facility] QUEtiapine 400 mg tablet 3-0 -14 00:00: 00 Yes 400mg Take 1 tablet by mouth in the morning and 1 tablet in the evening. [facility] QUEtiapine 400 mg tablet 3-0 14 00:00: 00 Yes 400mg Take 1 tablet by mouth in the morning and 1 tablet in the evening. [facility] QUEtiapine 400 mg tablet 3-0 -14 00:00: 00 Yes 400mg Take 1 tablet by mouth in the morning and 1 tablet in the evening. [facility] QUEtiapine 400 mg tablet 3-0 -14 00:00: 00 Yes 400mg Take 1 tablet by mouth in the morning and 1 tablet in the evening. [facility] QUEtiapine 400 mg tablet 3-0 -14 00:00: 00 Yes 400mg Take 1 tablet by mouth in the morning and 1 tablet in the evening. [facility] QUEtiapine 400 mg tablet 3-0 14 00:00: 00 Yes 400mg Take 1 tablet by mouth in the morning and 1 tablet in the evening. [facility] QUEtiapine 400 mg tablet 3-0 14 00:00: 00 Yes 400mg Take 400 mg by mouth in the morning and 400 mg in the evening. [facility] QUEtiapine 400 mg tablet 3-0 14 00:00: 00 Yes 400mg Take 1 tablet by mouth in the morning and 1 tablet in the evening. [facility] QUEtiapine 400 mg tablet 2022-0 14 00:00: 00 Yes 400mg Take 1 tablet by mouth in the morning and 1 tablet in the evening. [facility] QUEtiapine 400 mg tablet 2022-0 07-19 00:00: 00 Yes 400mg Take 1 tablet by mouth in the morning and 1 tablet in the evening. [facility] QUEtiapine 400 mg tablet 2022-0 07-19 00:00: 00 Yes 400mg Take 400 mg by mouth in the morning and 400 mg in the evening. [facility] QUEtiapine 400 mg tablet 2022-0 07-19 00:00: 00 Yes 400mg Take 400 mg by mouth in the morning and 400 mg in the evening. [facility] QUEtiapine 400 mg tablet 2022-0 14 00:00: 00 Yes 400mg Take 400 mg by mouth in the morning and 400 mg in the evening. [facility] QUEtiapine 400 mg tablet 2022-0 14 00:00: 00 Yes 400mg Take 400 mg by mouth in the morning and 400 mg in the evening. [facility] QUEtiapine 400 mg tablet 3-0 14 00:00: 00 Yes 400mg Take 400 mg by mouth in the morning and 400 mg in the evening. [facility] QUEtiapine 400 mg tablet 3-0 14 00:00: 00 Yes 400mg Take 400 mg by mouth in the morning and 400 mg in the evening. [facility] QUEtiapine 400 mg tablet 3-0 14 00:00: 00 Yes 400mg Take 400 mg by mouth in the morning and 400 mg in the evening. [facility] QUEtiapine 400 mg tablet 3-0 14 00:00: 00 Yes 400mg Take 400 mg by mouth in the morning and 400 mg in the evening. [facility] QUEtiapine 400 mg tablet 3-0 14 00:00: 00 Yes 400mg Take 400 mg by mouth in the morning and 400 mg in the evening. [facility] QUEtiapine 400 mg tablet 3-0 14 00:00: 00 Yes 400mg Take 400 mg by mouth in the morning and 400 mg in the evening. [facility] QUEtiapine 400 mg tablet 3-0 07-19 00:00: 00 Yes 400mg Take 400 mg by mouth in the morning and 400 mg in the evening. [facility] QUEtiapine 400 mg tablet 3-0 07-19 00:00: 00 Yes 400mg Take 400 mg by mouth in the morning and 400 mg in the evening. [facility] QUEtiapine 400 mg tablet 2022-0 07-19 00:00: 00 Yes 400mg Take 400 mg by mouth in the morning and 400 mg in the evening. [facility] QUEtiapine 400 mg tablet 2022-0 07-19 00:00: 00 Yes 400mg Take 400 mg by mouth in the morning and 400 mg in the evening. [facility] QUEtiapine 400 mg tablet 2022-0 07-19 00:00: 00 Yes 400mg Take 400 mg by mouth in the morning and 400 mg in the evening. [facility] QUEtiapine 400 mg tablet 3-0 14 00:00: 00 Yes 400mg Take 400 mg by mouth in the morning and 400 mg in the evening. [facility] QUEtiapine 400 mg tablet 3-0 14 00:00: 00 Yes 400mg Take 400 mg by mouth in the morning and 400 mg in the evening. [facility] QUEtiapine 400 mg tablet 3-0 14 00:00: 00 Yes 400mg Take 400 mg by mouth in the morning and 400 mg in the evening. [facility] QUEtiapine 400 mg tablet 3-0 1-14 00:00: 00 Yes 400mg Take 1 tablet by mouth in the morning and 1 tablet in the evening. [facility] QUEtiapine 400 mg tablet 2023-0 -14 00:00: 00 Yes 400mg Take 1 tablet by mouth in the morning and 1 tablet in the evening. [facility] QUEtiapine 400 mg tablet 3-0 -14 00:00: 00 Yes 400mg Take 1 tablet by mouth in the morning and 1 tablet in the evening. [facility] QUEtiapine 400 mg tablet 3-0 -14 00:00: 00 Yes 400mg Take 1 tablet by mouth in the morning and 1 tablet in the evening. [facility] QUEtiapine 400 mg tablet 3-0 -14 00:00: 00 Yes 400mg Take 1 tablet by mouth in the morning and 1 tablet in the evening. [facility] QUEtiapine 400 mg tablet 3-0 -14 00:00: 00 Yes 400mg Take 1 tablet by mouth in the morning and 1 tablet in the evening. [facility] QUEtiapine 400 mg tablet 3-0 14 00:00: 00 Yes 400mg Take 1 tablet by mouth in the morning and 1 tablet in the evening. [facility] QUEtiapine 400 mg tablet 3-0 14 00:00: 00 Yes 400mg Take 400 mg by mouth in the morning and 400 mg in the evening. [facility] QUEtiapine 400 mg tablet 3-0 14 00:00: 00 Yes 400mg Take 1 tablet by mouth in the morning and 1 tablet in the evening. [facility] QUEtiapine 400 mg tablet 3-0 14 00:00: 00 Yes 400mg Take 1 tablet by mouth in the morning and 1 tablet in the evening. [facility] QUEtiapine 400 mg tablet 2023-0 -14 00:00: 00 Yes 400mg Take 1 tablet by mouth in the morning and 1 tablet in the evening. [facility] QUEtiapine 400 mg tablet 2023-0 -14 00:00: 00 Yes 400mg Take 1 tablet by mouth in the morning and 1 tablet in the evening. [facility] QUEtiapine 400 mg tablet 2022-0 14 00:00: 00 Yes 400mg Take 1 tablet by mouth in the morning and 1 tablet in the evening. [facility] QUEtiapine 400 mg tablet 2022-0 14 00:00: 00 Yes 400mg Take 1 tablet by mouth in the morning and 1 tablet in the evening. [facility] 2022-0 14 00:00: 00 Yes 400mg Take 1 tablet by mouth in the morning and 1 tablet in the evening. [facility] 2022-0 13 00:00: 00 Yes TAKE 1 TABLET BY MOUTH EVERY DAY [facility] 2022-0 13 00:00: 00 Yes TAKE 1 TABLET BY MOUTH EVERY DAY [facility] 2022-0 13 00:00: 00 Yes TAKE 1 TABLET BY MOUTH EVERY DAY [facility]ED [facility] 3-0 13 00:00: 00 Yes TAKE 1 TABLET BY MOUTH EVERY DAY [facility]ED [facility] 3-0 13 00:00: 00 Yes TAKE 1 TABLET BY MOUTH EVERY DAY [facility]ED [facility] 2022-0 13 00:00: 00 Yes TAKE 1 TABLET BY MOUTH EVERY DAY [facility]ED [facility] mg tablet 3-0 13 00:00: 00 Yes TAKE 1 TABLET BY MOUTH EVERY DAY [facility]ED [facility] mg tablet 3-0 13 00:00: 00 Yes TAKE 1 TABLET BY MOUTH EVERY DAY [facility] 3-0 13 00:00: 00 Yes TAKE 1 TABLET BY MOUTH EVERY DAY [facility] tablet 3-0 -13 00:00: 00 Yes TAKE 1 TABLET BY MOUTH EVERY DAY [facility] 2022-0 13 00:00: 00 Yes TAKE 1 TABLET BY MOUTH EVERY DAY NEEDED [facility] tiZANidine 4 mg tablet 3-0 07-18 00:00: 00 Yes TAKE 1 TABLET BY MOUTH EVERY DAY NEEDED [facility] tiZANidine 4 mg tablet 3-0 07-18 00:00: 00 Yes TAKE 1 TABLET BY MOUTH EVERY DAY NEEDED [facility] tiZANidine 4 mg tablet 2022-0 07-18 00:00: 00 Yes TAKE 1 TABLET BY MOUTH EVERY DAY NEEDED [facility] tiZANidine 4 mg tablet 2022-0 07-18 00:00: 00 Yes TAKE 1 TABLET BY MOUTH EVERY DAY NEEDED [facility] tiZANidine 4 mg tablet 2022-0 07-18 00:00: 00 Yes TAKE 1 TABLET BY MOUTH EVERY DAY NEEDED [facility] tiZANidine 4 mg tablet 2022-0 07-18 00:00: 00 Yes TAKE 1 TABLET BY MOUTH EVERY DAY NEEDED [facility] tiZANidine 4 mg tablet 2022-0 07-18 00:00: 00 Yes TAKE 1 TABLET BY MOUTH EVERY DAY NEEDED [facility] tiZANidine 4 mg tablet 2022-0 13 00:00: 00 Yes TAKE 1 TABLET BY MOUTH EVERY DAY NEEDED [facility] tiZANidine 4 mg tablet 2022-0 13 00:00: 00 Yes TAKE 1 TABLET BY MOUTH EVERY DAY NEEDED [facility] tiZANidine 4 mg tablet 3-0 13 00:00: 00 Yes TAKE 1 TABLET BY MOUTH EVERY DAY NEEDED [facility] tiZANidine 4 mg tablet 3-0 13 00:00: 00 Yes TAKE 1 TABLET BY MOUTH EVERY DAY NEEDED [facility] [facility]AN[facility] 4 mg tablet 3-0 13 00:00: 00 Yes TAKE 1 TABLET BY MOUTH EVERY DAY NEEDED [facility] tiZANidine 4 mg tablet 3-0 13 00:00: 00 Yes TAKE 1 TABLET BY MOUTH EVERY DAY NEEDED [facility] tiZANidine 4 mg tablet 3-0 13 00:00: 00 Yes TAKE 1 TABLET BY MOUTH EVERY DAY NEEDED [facility] tiZANidine 4 mg tablet 3-0 13 00:00: 00 Yes TAKE 1 TABLET BY MOUTH EVERY DAY NEEDED [facility] tiZANidine 4 mg tablet 2022-0 13 00:00: 00 Yes TAKE 1 TABLET BY MOUTH EVERY DAY NEEDED [facility] tiZANidine 4 mg tablet 2022-0 07-18 00:00: 00 Yes TAKE 1 TABLET BY MOUTH EVERY DAY NEEDED [facility] tiZANidine 4 mg tablet 2022-0 07-18 00:00: 00 Yes TAKE 1 TABLET BY MOUTH EVERY DAY NEEDED [facility] tiZANidine 4 mg tablet 2022-0 13 00:00: 00 Yes TAKE 1 TABLET BY MOUTH EVERY DAY NEEDED [facility] tiZANidine 4 mg tablet 2022-0 07-18 00:00: 00 Yes TAKE 1 TABLET BY MOUTH EVERY DAY NEEDED [facility] tiZANidine 4 mg tablet 2022-0 13 00:00: 00 Yes TAKE 1 TABLET BY MOUTH EVERY DAY NEEDED [facility] tiZANidine 4 mg tablet 2022-0 13 00:00: 00 Yes TAKE 1 TABLET BY MOUTH EVERY DAY NEEDED [facility] tiZANidine 4 mg tablet 2022-0 13 00:00: 00 Yes TAKE 1 TABLET BY MOUTH EVERY DAY NEEDED [facility] tiZANidine 4 mg tablet 2022-0 13 00:00: 00 Yes TAKE 1 TABLET BY MOUTH EVERY DAY NEEDED [facility] tiZANidine 4 mg tablet 3-0 13 00:00: 00 Yes TAKE 1 TABLET BY MOUTH EVERY DAY NEEDED [facility] tiZANidine 4 mg tablet 3-0 13 00:00: 00 Yes TAKE 1 TABLET BY MOUTH EVERY DAY NEEDED [facility] tiZANidine 4 mg tablet 3-0 13 00:00: 00 Yes TAKE 1 TABLET BY MOUTH EVERY DAY NEEDED [facility] tiZANidine 4 mg tablet 3-0 07-18 00:00: 00 Yes TAKE 1 TABLET BY MOUTH EVERY DAY NEEDED [facility] tiZANidine 4 mg tablet 3-0 07-18 00:00: 00 Yes [facility] 1 [facility]18 00:00: 00 Yes TAKE 1 TABLET BY MOUTH [facility] 07-18 00:00: 00 Yes TAKE 1 TABLET BY MOUTH EVERY [facility] 07-18 00:00: 00 Yes TAKE 1 TABLET BY MOUTH EVERY [facility] 07-18 00:00: 00 Yes TAKE 1 TABLET BY MOUTH EVERY [facility]0 07-18 00:00: 00 Yes TAKE 1 TABLET BY MOUTH EVERY [facility]0 07-18 00:00: 00 Yes TAKE 1 TABLET BY MOUTH EVERY DAY NEEDED [facility] buPROPion XL 300 mg 24 hr tablet 2022-0 07-17 00:00: 00 Yes 300mg Take 1 tablet [facility] 20[facility]-0 07-17 00:00: 00 Yes TAKE 2 CAPSULES BY MOUTH TWICE A DAY WITH MEALS [facility] 24 hr tablet 3-0 07-17 00:00: 00 Yes 300mg Take 1 tablet by mouth every morning. [facility] capsule 2022-0 07-17 00:00: 00 Yes TAKE 2 CAPSULES BY MOUTH TWICE A DAY WITH MEALS [facility] buPROPion XL 300 mg 24 hr tablet 3-0 07-17 00:00: 00 Yes 300mg Take 1 tablet [facility] mouth every [facility] 3-0 1-12 00:00: 00 Yes TAKE 2 CAPSULES BY MOUTH TWICE A DAY WITH MEALS [facility] icosapent ethyL 1 gram capsule 3-0 -12 00:00: 00 Yes TAKE 2 CAPSULES BY MOUTH TWICE A DAY WITH MEALS [facility] buPROPion XL 300 mg 24 hr tablet 3-0 -12 00:00: 00 Yes 300mg Take 1 tablet [facility] mouth every morning[facility] tablet 3-0 -12 00:00: 00 Yes 300mg Take 300 mg by mouth every morning[facility] 2022-0 -12 00:00: 00 Yes TAKE 2 CAPSULES BY MOUTH TWICE A DAY WITH MEALS [facility] buPROPion XL 300 mg 24 hr tablet 2022-0 - 00:00: 00 Yes 300mg Take 1 tablet by mouth every morning. [facility] gram capsule 2022-0 - 00:00: 00 Yes TAKE 2 CAPSULES BY MOUTH TWICE A DAY WITH MEALS [facility] buPROPion XL 300 mg 24 hr tablet 2022-0 07-17 00:00: 00 Yes 300mg Take 1 tablet by mouth every morning. [facility] icosapent ethyL 1 gram capsule 2022-0 07-17 00:00: 00 Yes TAKE 2 CAPSULES BY MOUTH TWICE A DAY WITH MEALS [facility] buPROPion XL 300 mg 24 hr tablet 3-0 -12 00:00: 00 Yes 300mg Take 1 tablet by mouth every morning. [facility] icosapent ethyL 1 gram capsule 3-0 -12 00:00: 00 Yes TAKE 2 CAPSULES BY MOUTH TWICE A DAY WITH MEALS [facility] buPROPion XL 300 mg 24 hr tablet 3-0 - 00:00: 00 Yes 300mg Take 1 tablet [facility] 3-0 -12 00:00: 00 Yes TAKE 2 CAPSULES BY MOUTH TWICE A DAY WITH MEALS [facility] buPROPion XL 300 mg 24 hr tablet 3-0 - 00:00: 00 Yes 300mg Take 1 tablet by mouth every morning. [facility] gram capsule 3-0 12 00:00: 00 Yes TAKE 2 CAPSULES BY MOUTH TWICE A DAY WITH MEALS [facility] buPROPion XL 300 mg 24 hr tablet 2022-0 -12 00:00: 00 Yes 300mg Take 1 tablet by mouth every morning. [facility] gram capsule 2022-0 -12 00:00: 00 Yes TAKE 2 CAPSULES BY MOUTH TWICE A DAY WITH MEALS [facility] buPROPion XL 300 mg 24 hr tablet 2022-0 - 00:00: 00 Yes 300mg Take 1 tablet by mouth every morning. [facility] icosapent ethyL 1 gram capsule 2022-0 07-17 00:00: 00 Yes TAKE 2 CAPSULES BY MOUTH TWICE A DAY WITH MEALS [facility] icosapent ethyL 1 gram capsule 2022-0 07-17 00:00: 00 Yes TAKE 2 CAPSULES BY MOUTH TWICE A DAY WITH MEALS [facility] buPROPion XL 300 mg 24 hr tablet 2022-0 07-17 00:00: 00 Yes 300mg Take 1 tablet by mouth every morning. [facility] buPROPion XL 300 mg 24 hr tablet 2022-0 07-17 00:00: 00 Yes 300mg Take 300 mg by mouth every morning. [facility] icosapent ethyL 1 gram capsule 2022-0 12 00:00: 00 Yes TAKE 2 CAPSULES BY MOUTH TWICE A DAY WITH MEALS [facility] buPROPion XL 300 mg 24 hr tablet 2022-0 07-17 00:00: 00 Yes 300mg Take 300 mg by mouth every morning. [facility] icosapent ethyL 1 gram capsule 2022-0 - 00:00: 00 Yes TAKE 2 CAPSULES BY MOUTH TWICE A DAY WITH MEALS [facility] buPROPion XL 300 mg 24 hr tablet 3-0 - 00:00: 00 Yes 300mg Take 300 mg by mouth every morning. [facility] icosapent ethyL 1 gram capsule 3-0 - 00:00: 00 Yes TAKE 2 CAPSULES BY MOUTH TWICE A DAY [facility] 24 hr tablet 3-0 -12 00:00: 00 Yes 300mg Take 300 mg by mouth every morning. [facility] gram capsule 3-0 -12 00:00: 00 Yes TAKE 2 CAPSULES BY MOUTH TWICE A DAY WITH MEALS [facility] 24 hr tablet 3-0 -12 00:00: 00 Yes 300mg Take 300 mg by mouth every morning. [facility] gram capsule 3-0 -12 00:00: 00 Yes TAKE 2 CAPSULES BY MOUTH TWICE A DAY WITH MEALS [facility] mg 24 hr tablet 3-0 -12 00:00: 00 Yes 300mg Take 300 mg by mouth every morning. [facility] 1 gram capsule 3-0 -12 00:00: 00 Yes TAKE 2 CAPSULES BY MOUTH TWICE A DAY WITH MEALS [facility] buPROPion XL 300 mg 24 hr tablet 3-0 -12 00:00: 00 Yes 300mg Take 300 mg by mouth every morning. [facility] gram capsule 3-0 -12 00:00: 00 Yes TAKE 2 CAPSULES BY MOUTH TWICE A DAY WITH MEALS [facility] icosapent ethyL 1 gram capsule 3-0 -12 00:00: 00 Yes TAKE 2 CAPSULES BY MOUTH TWICE A DAY WITH MEALS [facility] buPROPion XL 300 mg 24 hr tablet 3-0 -12 00:00: 00 Yes 300mg Take 300 mg by mouth every morning. [facility] gram capsule 3-0 -12 00:00: 00 Yes TAKE 2 CAPSULES BY MOUTH TWICE A DAY WITH MEALS [facility] buPROPion XL 300 mg 24 hr tablet 3-0 -12 00:00: 00 Yes 300mg Take 300 mg by mouth every morning. [facility] 24 hr tablet 3-0 -12 00:00: 00 Yes 300mg Take 300 mg by mouth every morning. [facility] icosapent ethyL 1 gram capsule 3-0 -12 00:00: 00 Yes TAKE 2 CAPSULES BY MOUTH TWICE A DAY WITH MEALS [facility] buPROPion XL 300 mg 24 hr tablet 3-0 -12 00:00: 00 Yes 300mg Take 300 mg by mouth every morning. [facility] gram capsule 3-0 -12 00:00: 00 Yes TAKE 2 CAPSULES BY MOUTH TWICE A DAY WITH MEALS [facility] mg 24 hr tablet 3-0 -12 00:00: 00 Yes 300mg Take 300 mg by mouth every morning. [facility] gram capsule 3-0 -12 00:00: 00 Yes TAKE 2 CAPSULES BY MOUTH TWICE A DAY WITH MEALS [facility] mg 24 hr tablet 3-0 -12 00:00: 00 Yes 300mg Take 300 mg by mouth every morning. [facility] gram capsule 3-0 -12 00:00: 00 Yes TAKE 2 CAPSULES BY MOUTH TWICE A DAY WITH MEALS [facility] mg 24 hr tablet 3-0 - 00:00: 00 Yes 300mg Take 300 mg by mouth every morning. [facility] gram capsule 3-0 -12 00:00: 00 Yes TAKE 2 CAPSULES BY MOUTH TWICE A DAY WITH MEALS [facility] mg 24 hr tablet 3-0 -12 00:00: 00 Yes 300mg Take 300 mg by mouth every morning. [facility] gram capsule 3-0 -12 00:00: 00 Yes TAKE 2 CAPSULES BY MOUTH TWICE A DAY WITH MEALS [facility] mg 24 hr tablet 3-0 -12 00:00: 00 Yes 300mg Take 300 mg by mouth every morning. [facility] gram capsule 3-0 -12 00:00: 00 Yes TAKE 2 CAPSULES BY MOUTH TWICE A DAY WITH MEALS [facility] mg 24 hr tablet 3-0 -12 00:00: 00 Yes 300mg Take 300 mg by mouth every morning. [facility] icosapent ethyL 1 gram capsule 3-0 -12 00:00: 00 Yes TAKE 2 CAPSULES BY MOUTH TWICE A DAY WITH MEALS [facility] buPROPion XL 300 mg 24 hr tablet 3-0 -12 00:00: 00 Yes 300mg Take 300 mg by mouth every morning. [facility] gram capsule 3-0 -12 00:00: 00 Yes TAKE 2 CAPSULES BY MOUTH TWICE A DAY WITH MEALS [facility] icosapent ethyL 1 gram capsule 3-0 - 00:00: 00 Yes TAKE 2 CAPSULES BY MOUTH TWICE A DAY WITH MEALS [facility] buPROPion XL 300 mg 24 hr tablet 3-0 -12 00:00: 00 Yes 300mg Take 1 tablet by mouth every morning. [facility] icosapent ethyL 1 gram capsule 2022-0 -12 00:00: 00 Yes TAKE 2 CAPSULES BY MOUTH TWICE A DAY WITH MEALS [facility] buPROPion XL 300 mg 24 hr tablet 3-0 07-17 00:00: 00 Yes 300mg Take 1 tablet by mouth every morning. [facility] buPROPion XL 300 mg 24 hr tablet 3-0 07-17 00:00: 00 Yes 300mg Take 300 mg by mouth every morning. [facility] icosapent ethyL 1 gram capsule 3-0 -12 00:00: 00 Yes TAKE 2 CAPSULES BY MOUTH TWICE A DAY WITH MEALS [facility] buPROPion XL 300 mg 24 hr tablet 3-0 -12 00:00: 00 Yes 300mg Take 1 tablet by mouth every morning. [facility] icosapent ethyL 1 gram capsule 3-0 - 00:00: 00 Yes TAKE 2 CAPSULES BY MOUTH TWICE A DAY WITH MEALS [facility] buPROPion XL 300 mg 24 hr tablet 3-0 -12 00:00: 00 Yes 300mg Take 1 tablet by mouth every morning. [facility] icosapent ethyL 1 gram capsule 3-0 -12 00:00: 00 Yes TAKE 2 CAPSULES BY MOUTH TWICE A DAY WITH MEALS [facility] buPROPion XL 300 mg 24 hr tablet 3-0 -12 00:00: 00 Yes 300mg Take 1 tablet by mouth every morning. [facility] icosapent ethyL 1 gram capsule 3-0 -12 00:00: 00 Yes TAKE 2 CAPSULES BY MOUTH TWICE A DAY WITH MEALS [facility] buPROPion XL 300 mg 24 hr tablet 3-0 -12 00:00: 00 Yes 300mg Take 1 tablet by mouth every morning. [facility] icosapent ethyL 1 gram capsule 3-0 -12 00:00: 00 Yes TAKE 2 CAPSULES BY MOUTH TWICE A DAY WITH MEALS [facility] buPROPion XL 300 mg 24 hr tablet 3-0 - 00:00: 00 Yes 300mg Take 1 tablet by mouth every morning. [facility] icosapent ethyL 1 gram capsule 3-0 -12 00:00: 00 Yes TAKE 2 CAPSULES BY MOUTH TWICE A DAY WITH MEALS [facility] buPROPion XL 300 mg 24 hr tablet 3-0 07-17 00:00: 00 Yes 300mg Take 1 tablet by mouth every morning. [facility] icosapent ethyL 1 gram capsule 2022-0 -12 00:00: 00 Yes TAKE 2 CAPSULES BY MOUTH TWICE A DAY WITH MEALS [facility] icosapent ethyL 1 gram capsule 3-0 -12 00:00: 00 Yes TAKE 2 CAPSULES BY MOUTH TWICE A DAY WITH MEALS [facility] buPROPion XL 300 mg 24 hr tablet 3-0 -12 00:00: 00 Yes 300mg Take 1 tablet by mouth every morning. [facility] icosapent ethyL 1 gram capsule 3-0 -12 00:00: 00 Yes TAKE 2 CAPSULES BY MOUTH TWICE A DAY WITH MEALS [facility] buPROPion XL 300 mg 24 hr tablet 3-0 -12 00:00: 00 Yes 300mg Take 1 tablet by mouth every morning. [facility] buPROPion XL 300 mg 24 hr tablet 3-0 1-12 00:00: 00 Yes 300mg Take 300 mg by mouth every morning. [facility] gram capsule 2022-0 07-17 00:00: 00 Yes TAKE 2 CAPSULES BY MOUTH TWICE A DAY WITH MEALS [facility] buPROPion XL 300 mg 24 hr tablet 2022-0 07-17 00:00: 00 Yes 300mg Take 1 tablet by mouth every morning. [facility] gram capsule 2022-0 07-17 00:00: 00 Yes TAKE 2 CAPSULES BY MOUTH TWICE A DAY WITH MEALS [facility] mg 24 hr tablet 2022-0 07-17 00:00: 00 Yes 300mg Take 1 tablet by mouth every morning. [facility] 1 gram capsule 2022-0 07-17 00:00: 00 Yes TAKE 2 CAPSULES BY MOUTH TWICE A DAY WITH MEALS [facility] mg 24 hr tablet 2022-0 07-17 00:00: 00 Yes 300mg Take 1 tablet by mouth every morning. [facility] icosapent ethyL 1 gram capsule 2022-0 07-17 00:00: 00 Yes TAKE 2 CAPSULES BY MOUTH TWICE A DAY WITH MEALS [facility] Tab [facility]-0 07-14 00:00: 00 Yes TAKE 1 TABLET BY MOUTH AT BEDTIME NEEDED [facility] BELSOMRA 20 mg Tab 3-0 07-14 00:00: 00 Yes TAKE 1 TABLET BY MOUTH AT BEDTIME NEEDED [facility] BELSOMRA 20 mg Tab 3-0 07-14 00:00: 00 Yes TAKE 1 TABLET BY MOUTH AT BEDTIME NEEDED [facility] BELSOMRA 20 mg Tab 3-0 07-14 00:00: 00 Yes TAKE 1 TABLET BY MOUTH AT BEDTIME NEEDED [facility] BELSOMRA 20 mg Tab 3-0 07-14 00:00: 00 Yes TAKE 1 TABLET BY MOUTH AT BEDTIME NEEDED [facility] BELSOMRA 20 mg Tab 3-0 07-14 00:00: 00 Yes TAKE 1 TABLET BY MOUTH AT BEDTIME NEEDED [facility] BELSOMRA 20 mg Tab 2023-0 07-14 00:00: 00 Yes TAKE 1 TABLET BY MOUTH AT BEDTIME NEEDED [facility] BELSOMRA 20 mg Tab 2023-0 07-14 00:00: 00 Yes TAKE 1 TABLET BY MOUTH AT BEDTIME NEEDED [facility] BELSOMRA 20 mg Tab 2023-0 07-14 00:00: 00 Yes TAKE 1 TABLET BY MOUTH AT BEDTIME NEEDED [facility] BELSOMRA 20 mg Tab 2023-0 07-14 00:00: 00 Yes TAKE 1 TABLET BY MOUTH AT BEDTIME NEEDED [facility] BELSOMRA 20 mg Tab 2023-0 07-14 00:00: 00 Yes TAKE 1 TABLET BY MOUTH AT BEDTIME NEEDED [facility] BELSOMRA 20 mg Tab 2023-0 07-14 00:00: 00 Yes TAKE 1 TABLET BY MOUTH AT BEDTIME NEEDED [facility] BELSOMRA 20 mg Tab 2023-0 07-14 00:00: 00 Yes TAKE 1 TABLET BY MOUTH AT BEDTIME NEEDED [facility] BELSOMRA 20 mg Tab 2023-0 07-14 00:00: 00 Yes TAKE 1 TABLET BY MOUTH AT BEDTIME NEEDED [facility] BELSOMRA 20 mg Tab 2023-0 07-14 00:00: 00 Yes TAKE 1 TABLET BY MOUTH AT BEDTIME NEEDED [facility] BELSOMRA 20 mg Tab 2023-0 07-14 00:00: 00 Yes TAKE 1 TABLET BY MOUTH AT BEDTIME NEEDED [facility] BELSOMRA 20 mg Tab 2023-0 07-14 00:00: 00 Yes TAKE 1 TABLET BY MOUTH AT BEDTIME NEEDED [facility] BELSOMRA 20 mg Tab 2023-0 07-14 00:00: 00 Yes TAKE 1 TABLET BY MOUTH AT BEDTIME NEEDED [facility] BELSOMRA 20 mg Tab 2023-0 07-14 00:00: 00 Yes TAKE 1 TABLET BY MOUTH AT BEDTIME NEEDED [facility] BELSOMRA 20 mg Tab 2023-0 07-14 00:00: 00 Yes TAKE 1 TABLET BY MOUTH AT BEDTIME NEEDED [facility] BELSOMRA 20 mg Tab 2023-0 07-14 00:00: 00 Yes TAKE 1 TABLET BY MOUTH AT BEDTIME NEEDED [facility] BELSOMRA 20 mg Tab 2023-0 07-14 00:00: 00 Yes TAKE 1 TABLET BY MOUTH AT BEDTIME NEEDED [facility] BELSOMRA 20 mg Tab 2023-0 07-14 00:00: 00 Yes TAKE 1 TABLET BY MOUTH AT BEDTIME NEEDED [facility] BELSOMRA 20 mg Tab 2023-0 07-14 00:00: 00 Yes TAKE 1 TABLET BY MOUTH AT BEDTIME NEEDED [facility] BELSOMRA 20 mg Tab 2023-0 07-14 00:00: 00 Yes TAKE 1 TABLET BY MOUTH AT BEDTIME NEEDED [facility] BELSOMRA 20 mg Tab 2023-0 07-14 00:00: 00 Yes TAKE 1 TABLET BY MOUTH AT BEDTIME NEEDED [facility] BELSOMRA 20 mg Tab 2023-0 07-14 00:00: 00 Yes TAKE 1 TABLET BY MOUTH AT BEDTIME NEEDED [facility] BELSOMRA 20 mg Tab 2023-0 07-14 00:00: 00 Yes TAKE 1 TABLET BY MOUTH AT BEDTIME NEEDED [facility] BELSOMRA 20 mg Tab 2023-0 07-14 00:00: 00 Yes TAKE 1 TABLET BY MOUTH AT BEDTIME NEEDED [facility] BELSOMRA 20 mg Tab 2023-0 07-14 00:00: 00 Yes TAKE 1 TABLET BY MOUTH AT BEDTIME NEEDED [facility] BELSOMRA 20 mg Tab 2023-0 07-14 00:00: 00 Yes TAKE 1 TABLET BY MOUTH AT BEDTIME NEEDED [facility] BELSOMRA 20 mg Tab 2023-0 07-14 00:00: 00 Yes TAKE 1 TABLET BY MOUTH AT BEDTIME NEEDED [facility] BELSOMRA 20 mg Tab 2023-0 07-14 00:00: 00 Yes TAKE 1 TABLET BY MOUTH AT BEDTIME NEEDED [facility] BELSOMRA 20 mg Tab 2023-0 07-14 00:00: 00 Yes TAKE 1 TABLET BY MOUTH AT BEDTIME NEEDED [facility] BELSOMRA 20 mg Tab 2023-0 07-14 00:00: 00 Yes TAKE 1 TABLET BY MOUTH AT BEDTIME NEEDED [facility] BELSOMRA 20 mg Tab 2023-0 07-14 00:00: 00 Yes TAKE 1 TABLET BY MOUTH AT BEDTIME NEEDED [facility] BELSOMRA 20 mg Tab 2023-0 07-14 00:00: 00 Yes TAKE 1 TABLET BY MOUTH AT BEDTIME NEEDED [facility] BELSOMRA 20 mg Tab 2023-0 07-14 00:00: 00 Yes TAKE 1 TABLET BY MOUTH AT BEDTIME NEEDED [facility] BELSOMRA 20 mg Tab 2023-0 07-14 00:00: 00 Yes TAKE 1 TABLET BY MOUTH AT BEDTIME NEEDED [facility] BELSOMRA 20 mg Tab 2023-0 07-14 00:00: 00 Yes TAKE 1 TABLET BY MOUTH AT BEDTIME NEEDED [facility] BELSOMRA 20 mg Tab 2023-0 07-14 00:00: 00 Yes TAKE 1 TABLET BY MOUTH AT BEDTIME NEEDED [facility] BELSOMRA 20 mg Tab 2023-0 07-14 00:00: 00 Yes TAKE 1 TABLET BY MOUTH AT BEDTIME NEEDED [facility] BELSOMRA 20 mg Tab 2023-0 07-14 00:00: 00 Yes TAKE 1 TABLET BY MOUTH AT BEDTIME NEEDED [facility] BELSOMRA 20 mg Tab 2023-0 07-14 00:00: 00 Yes TAKE 1 TABLET BY MOUTH AT BEDTIME NEEDED [facility] BELSOMRA 20 mg Tab 2023-0 07-14 00:00: 00 Yes TAKE 1 TABLET BY MOUTH AT BEDTIME NEEDED [facility] BELSOMRA 20 mg Tab 2023-0 07-14 00:00: 00 Yes TAKE 1 TABLET BY MOUTH AT BEDTIME NEEDED [facility] LANTUS U-100 INSULIN 100 unit/mL solution 2021-0718 00:00: 00 Yes ADMINISTER 17 UNITS SUBCUTANEO USLY AT BEDTIME [facility] LANTUS U-100 INSULIN 100 unit/mL solution 2021-07 00:00: 00 Yes ADMINISTER 17 UNITS SUBCUTANEO USLY AT BEDTIME [facility] LANTUS U-100 INSULIN 100 unit/mL solution 2021-07 00:00: 00 Yes ADMINISTER 17 UNITS SUBCUTANEO USLY AT BEDTIME [facility] LANTUS U-100 INSULIN 100 unit/mL solution 2021-07 00:00: 00 Yes ADMINISTER 17 UNITS SUBCUTANEO USLY AT BEDTIME [facility] LANTUS U-100 INSULIN 100 unit/mL solution 2021-07 00:00: 00 Yes ADMINISTER 17 UNITS SUBCUTANEO USLY AT BEDTIME [facility] LANTUS U-100 INSULIN 100 unit/mL solution 2021-07 00:00: 00 Yes ADMINISTER 17 UNITS SUBCUTANEO USLY AT BEDTIME [facility] LANTUS U-100 INSULIN 100 unit/mL solution 2021-07 00:00: 00 Yes ADMINISTER 17 UNITS SUBCUTANEO USLY AT BEDTIME [facility] LANTUS U-100 INSULIN 100 unit/mL solution 2021-07 00:00: 00 Yes ADMINISTER 17 UNITS SUBCUTANEO USLY AT BEDTIME [facility] LANTUS U-100 INSULIN 100 unit/mL solution 2021-07 00:00: 00 Yes ADMINISTER 17 UNITS SUBCUTANEO USLY AT BEDTIME [facility] LANTUS U-100 INSULIN 100 unit/mL solution 2021-07 00:00: 00 Yes ADMINISTER 17 UNITS SUBCUTANEO USLY AT BEDTIME [facility] LANTUS U-100 INSULIN 100 unit/mL solution 2021-07 00:00: 00 Yes ADMINISTER 17 UNITS SUBCUTANEO USLY AT BEDTIME [facility] LANTUS U-100 INSULIN 100 unit/mL solution 2021-07 00:00: 00 Yes ADMINISTER 17 UNITS SUBCUTANEO USLY AT BEDTIME [facility] LANTUS U-100 INSULIN 100 unit/mL solution 2021-07-18 00:00: 00 Yes ADMINISTER 17 UNITS SUBCUTANEO USLY AT BEDTIME [facility] LANTUS U-100 INSULIN 100 unit/mL solution 2021-07 2-18 00:00: 00 Yes ADMINISTER 17 UNITS SUBCUTANEO USLY AT BEDTIME [facility] LANTUS U-100 INSULIN 100 unit/mL solution 2021-07 2-18 00:00: 00 Yes ADMINISTER 17 UNITS SUBCUTANEO USLY AT BEDTIME [facility] LANTUS U-100 INSULIN 100 unit/mL solution 2021-07 00:00: 00 Yes ADMINISTER 17 UNITS SUBCUTANEO USLY AT BEDTIME [facility] LANTUS U-100 INSULIN 100 unit/mL solution 2021-07 00:00: 00 Yes ADMINISTER 17 UNITS SUBCUTANEO USLY AT BEDTIME [facility] LANTUS U-100 INSULIN 100 unit/mL solution 2021-07 00:00: 00 Yes ADMINISTER 17 UNITS SUBCUTANEO USLY AT BEDTIME [facility] LANTUS U-100 INSULIN 100 unit/mL solution 2021-07 00:00: 00 Yes ADMINISTER 17 UNITS SUBCUTANEO USLY AT BEDTIME [facility] LANTUS U-100 INSULIN 100 unit/mL solution 2021-0718 00:00: 00 Yes ADMINISTER 17 UNITS SUBCUTANEO USLY AT BEDTIME [facility] LANTUS U-100 INSULIN 100 unit/mL solution 2021-07-18 00:00: 00 Yes ADMINISTER 17 UNITS SUBCUTANEO USLY AT BEDTIME [facility] LANTUS U-100 INSULIN 100 unit/mL solution 2021-07-18 00:00: 00 Yes ADMINISTER 17 UNITS SUBCUTANEO USLY AT BEDTIME [facility] LANTUS U-100 INSULIN 100 unit/mL solution 2021-07-18 00:00: 00 Yes ADMINISTER 17 UNITS SUBCUTANEO USLY AT BEDTIME [facility] LANTUS U-100 INSULIN 100 unit/mL solution 2021-0718 00:00: 00 Yes ADMINISTER 17 UNITS SUBCUTANEO USLY AT BEDTIME [facility] LANTUS U-100 INSULIN 100 unit/mL solution 2021-07-18 00:00: 00 Yes ADMINISTER 17 UNITS SUBCUTANEO USLY AT BEDTIME [facility] LANTUS U-100 INSULIN 100 unit/mL solution 2021-07 00:00: 00 Yes ADMINISTER 17 UNITS SUBCUTANEO USLY AT BEDTIME [facility] LANTUS U-100 INSULIN 100 unit/mL solution 2021-07 00:00: 00 Yes ADMINISTER 17 UNITS SUBCUTANEO USLY AT BEDTIME [facility] LANTUS U-100 INSULIN 100 unit/mL solution 2021-07 00:00: 00 Yes ADMINISTER 17 UNITS SUBCUTANEO USLY AT BEDTIME [facility] LANTUS U-100 INSULIN 100 unit/mL solution 2021-07 00:00: 00 Yes ADMINISTER 17 UNITS SUBCUTANEO USLY AT BEDTIME [facility] LANTUS U-100 INSULIN 100 unit/mL solution 2021-07 00:00: 00 Yes ADMINISTER 17 UNITS SUBCUTANEO USLY AT BEDTIME [facility] LANTUS U-100 INSULIN 100 unit/mL solution 2021-07 00:00: 00 Yes ADMINISTER 17 UNITS SUBCUTANEO USLY AT BEDTIME [facility] LANTUS U-100 INSULIN 100 unit/mL solution 2021-07 00:00: 00 Yes ADMINISTER 17 UNITS SUBCUTANEO USLY AT BEDTIME [facility] LANTUS U-100 INSULIN 100 unit/mL solution 2021-07 00:00: 00 Yes ADMINISTER 17 UNITS SUBCUTANEO USLY AT BEDTIME [facility] LANTUS U-100 INSULIN 100 unit/mL solution 2021-07-18 00:00: 00 Yes ADMINISTER 17 UNITS SUBCUTANEO USLY AT BEDTIME [facility] LANTUS U-100 INSULIN 100 unit/mL solution 2021-0718 00:00: 00 Yes ADMINISTER 17 UNITS SUBCUTANEO USLY AT BEDTIME [facility] LANTUS U-100 INSULIN 100 unit/mL solution 2021-0718 00:00: 00 Yes ADMINISTER 17 UNITS SUBCUTANEO USLY AT BEDTIME [facility] LANTUS U-100 INSULIN 100 unit/mL solution 2021-07 00:00: 00 Yes ADMINISTER 17 UNITS SUBCUTANEO USLY AT BEDTIME [facility] LANTUS U-100 INSULIN 100 unit/mL solution 2021-07 00:00: 00 Yes ADMINISTER 17 UNITS SUBCUTANEO USLY AT BEDTIME [facility] LANTUS U-100 INSULIN 100 unit/mL solution 2021-07 00:00: 00 Yes ADMINISTER 17 UNITS SUBCUTANEO USLY AT BEDTIME [facility] LANTUS U-100 INSULIN 100 unit/mL solution 2021-07 00:00: 00 Yes ADMINISTER 17 UNITS SUBCUTANEO USLY AT BEDTIME [facility] LANTUS U-100 INSULIN 100 unit/mL solution 2021-07 00:00: 00 Yes ADMINISTER 17 UNITS SUBCUTANEO USLY AT BEDTIME [facility] LANTUS U-100 INSULIN 100 unit/mL solution 2021-07 00:00: 00 Yes ADMINISTER 17 UNITS SUBCUTANEO USLY AT BEDTIME [facility] LANTUS U-100 INSULIN 100 unit/mL solution 2021-07 00:00: 00 Yes ADMINISTER 17 UNITS SUBCUTANEO USLY AT BEDTIME [facility] LANTUS U-100 INSULIN 100 unit/mL solution 2021-07 00:00: 00 Yes ADMINISTER 17 UNITS SUBCUTANEO USLY AT BEDTIME [facility] LANTUS U-100 INSULIN 100 unit/mL solution 2021-0718 00:00: 00 Yes ADMINISTER 17 UNITS SUBCUTANEO USLY AT BEDTIME [facility] LANTUS U-100 INSULIN 100 unit/mL solution 2021-0718 00:00: 00 Yes ADMINISTER 17 UNITS SUBCUTANEO USLY AT BEDTIME [facility] DEXILANT 60 mg capsule 2021- 2-15 00:00: 00 Yes 60mg Take 1 capsule by mouth in the morning. [facility] ziprasidone 80 mg capsule 2021- 2-15 00:00: 00 Yes TAKE 1 CAPSULE BY MOUTH TWICE A DAY WITH FOOD [facility] DEXILANT 60 mg capsule 2021- 2-15 00:00: 00 Yes 60mg Take 1 capsule by mouth in the morning. [facility] ziprasidone 80 mg capsule 2021- 2-15 00:00: 00 Yes TAKE 1 CAPSULE BY MOUTH TWICE A DAY WITH FOOD [facility] ziprasidone 80 mg capsule 2021- 2-15 00:00: 00 Yes TAKE 1 CAPSULE BY MOUTH TWICE A DAY WITH FOOD [facility] DEXILANT 60 mg capsule 2021-07 2-15 00:00: 00 Yes 60mg Take 1 capsule by mouth in the morning. [facility] DEXILANT 60 mg capsule 2021-07 2-15 00:00: 00 Yes 1{capsu le} Take 1 capsule by mouth in the morning. [facility] ziprasidone 80 mg capsule 2021-07 2-15 00:00: 00 Yes TAKE 1 CAPSULE BY MOUTH TWICE A DAY WITH FOOD [facility] DEXILANT 60 mg capsule 2021-07 2-15 00:00: 00 Yes 60mg Take 1 capsule by mouth in the morning. [facility] ziprasidone 80 mg capsule 2021-1 2-15 00:00: 00 Yes TAKE 1 CAPSULE BY MOUTH TWICE A DAY WITH FOOD [facility] DEXILANT 60 mg capsule 2021- 2-15 00:00: 00 Yes 60mg Take 1 capsule by mouth in the morning. [facility] ziprasidone 80 mg capsule 2021- 2-15 00:00: 00 Yes TAKE 1 CAPSULE BY MOUTH TWICE A DAY WITH FOOD [facility] DEXILANT 60 mg capsule 2021- 2-15 00:00: 00 Yes 60mg Take 1 capsule by mouth in the morning. [facility] ziprasidone 80 mg capsule 2021-07 2-15 00:00: 00 Yes TAKE 1 CAPSULE BY MOUTH TWICE A DAY [facility] 2021-1 2-15 00:00: 00 Yes 60mg Take 1 capsule by mouth in the morning. [facility] ziprasidone 80 mg capsule 2021-1 2-15 00:00: 00 Yes TAKE 1 CAPSULE BY MOUTH TWICE A DAY WITH FOOD [facility] DEX[facility] 2021- 2-15 00:00: 00 Yes 60mg Take 1 capsule by mouth in the morning. [facility] ity [facility] ziprasidone 80 mg capsule 2021-1 2-15 00:00: 00 Yes TAKE 1 CAPSULE BY MOUTH TWICE A DAY WITH FOOD [facility] DEXILANT 60 mg capsule 2021- 2-15 00:00: 00 Yes 60mg Take 1 capsule by mouth in the morning. [facility] 2021- 2-15 00:00: 00 Yes TAKE 1 CAPSULE BY MOUTH TWICE A DAY WITH FOOD [facility] ziprasidone 80 mg capsule 2021-1 2-15 00:00: 00 Yes TAKE 1 CAPSULE BY MOUTH TWICE A DAY WITH FOOD [facility] DEXILANT 60 mg capsule 2021- 2-15 00:00: 00 Yes 60mg Take 1 capsule by mouth in the morning. [facility] ziprasidone 80 mg capsule 2021-1 2-15 00:00: 00 Yes TAKE 1 CAPSULE BY MOUTH TWICE A DAY WITH FOOD [facility] DEXILANT 60 mg capsule 2021-1 2-15 00:00: 00 Yes 60mg Take 1 capsule by mouth in the morning. [facility] 2021-1 2-15 00:00: 00 Yes 1{capsu le} Take 1 capsule by mouth in the morning. [facility] 2021-1 2-15 00:00: 00 Yes TAKE 1 CAPSULE BY MOUTH TWICE A DAY WITH FOOD [facility] DEXILANT 60 mg capsule 2021-1 2-15 00:00: 00 Yes 60mg Take 1 capsule by mouth in the morning. [facility] ziprasidone 80 mg capsule 2021-1 2-15 00:00: 00 Yes TAKE 1 CAPSULE BY MOUTH TWICE A DAY WITH FOOD [facility] DEXILANT 60 mg capsule 2021-1 2-15 00:00: 00 Yes 1{capsu le} Take 1 capsule by mouth in the morning. [facility] 2021-1 2-15 00:00: 00 Yes TAKE 1 CAPSULE BY MOUTH TWICE A DAY WITH FOOD [facility] DEXILANT 60 mg capsule 2021-1 2-15 00:00: 00 Yes 1{capsu le} Take 1 capsule by mouth in the morning. [facility] ziprasidone 80 mg capsule 2021-1 2-15 00:00: 00 Yes TAKE 1 CAPSULE BY MOUTH TWICE A DAY WITH FOOD [facility] DEXILANT 60 mg capsule 2021-1 2-15 00:00: 00 Yes 1{capsu le} Take 1 capsule by mouth in the morning. [facility] ziprasidone 80 mg capsule 2021-1 2-15 00:00: 00 Yes TAKE 1 CAPSULE BY MOUTH TWICE A DAY WITH FOOD [facility] DEXILANT 60 mg capsule 2021-1 2-15 00:00: 00 Yes 1{capsu le} Take 1 capsule by mouth in the morning. [facility] ziprasidone 80 mg capsule 2021-1 2-15 00:00: 00 Yes TAKE 1 CAPSULE BY MOUTH TWICE A DAY WITH FOOD [facility] ziprasidone 80 mg capsule 2021-1 2-15 00:00: 00 Yes TAKE 1 CAPSULE BY MOUTH TWICE A DAY WITH FOOD [facility] DEXILANT 60 mg capsule 2021-1 2-15 00:00: 00 Yes 1{capsu le} Take 1 capsule by mouth in the morning. [facility] ziprasidone 80 mg capsule 2021-1 2-15 00:00: 00 Yes TAKE 1 CAPSULE BY MOUTH TWICE A DAY WITH FOOD [facility] DEXILANT 60 mg capsule 2-1 2-15 00:00: 00 Yes 1{capsu le} Take 1 capsule by mouth in the morning. [facility] ziprasidone 80 mg capsule 2021-1 2-15 00:00: 00 Yes TAKE 1 CAPSULE BY MOUTH TWICE A DAY WITH FOOD [facility] DEXILANT 60 mg capsule 2021-1 2-15 00:00: 00 Yes 1{capsu le} Take 1 capsule by mouth in the morning. [facility] 2021-1 2-15 00:00: 00 Yes 1{capsu le} Take 1 capsule by mouth in the morning. [facility] 2021-1 2-15 00:00: 00 Yes TAKE 1 CAPSULE BY MOUTH TWICE A DAY WITH FOOD [facility] DEXILANT 60 mg capsule 2021-1 2-15 00:00: 00 Yes 1{capsu le} Take 1 capsule by mouth in the morning. [facility] ziprasidone 80 mg capsule 2021-1 2-15 00:00: 00 Yes TAKE 1 CAPSULE BY MOUTH TWICE A DAY WITH FOOD [facility] DEXILANT 60 mg capsule 2021-1 2-15 00:00: 00 Yes 1{capsu le} Take 1 capsule by mouth in the morning. [facility] ziprasidone 80 mg capsule 2021-1 2-15 00:00: 00 Yes TAKE 1 CAPSULE BY MOUTH TWICE A DAY WITH FOOD [facility] DEXILANT 60 mg capsule 2021-1 2-15 00:00: 00 Yes 1{capsu le} Take 1 capsule by mouth in the morning. [facility] ziprasidone 80 mg capsule 2021-1 2-15 00:00: 00 Yes TAKE 1 CAPSULE BY MOUTH TWICE A DAY WITH FOOD [facility] DEXILANT 60 mg capsule 2021-1 2-15 00:00: 00 Yes 1{capsu le} Take 1 capsule by mouth in the morning. [facility] ziprasidone 80 mg capsule 2021-1 2-15 00:00: 00 Yes TAKE 1 CAPSULE BY MOUTH TWICE A DAY WITH FOOD [facility] DEXILANT 60 mg capsule 2021-1 2-15 00:00: 00 Yes 1{capsu le} Take 1 capsule by mouth in the morning. [facility] 2021-1 2-15 00:00: 00 Yes TAKE 1 CAPSULE BY MOUTH TWICE A DAY WITH FOOD [facility] DEX[facility] mg capsule 2021- 2-15 00:00: 00 Yes 1{capsu le} Take 1 capsule by mouth in the morning. [facility] ziprasidone 80 mg capsule 2021-1 2-15 00:00: 00 Yes TAKE 1 CAPSULE BY MOUTH TWICE A DAY WITH FOOD [facility] DEXILANT 60 mg capsule 2021- 2-15 00:00: 00 Yes 1{capsu le} Take 1 capsule by mouth in the morning. [facility] mg capsule 2021-1 2-15 00:00: 00 Yes TAKE 1 CAPSULE BY MOUTH TWICE A DAY WITH FOOD [facility] DEXILANT 60 mg capsule 2021-1 2-15 00:00: 00 Yes 1{capsu le} Take 1 capsule by mouth in the morning. [facility] 2021-1 2-15 00:00: 00 Yes TAKE 1 CAPSULE BY MOUTH TWICE A DAY WITH FOOD [facility] ziprasidone 80 mg capsule 2021-1 2-15 00:00: 00 Yes TAKE 1 CAPSULE BY MOUTH TWICE A DAY WITH FOOD [facility] DEXILANT 60 mg capsule 2021- 2-15 00:00: 00 Yes 1{capsu le} Take 1 capsule by mouth in the morning. [facility] 2021-1 2-15 00:00: 00 Yes TAKE 1 CAPSULE BY MOUTH TWICE A DAY WITH FOOD [facility] DEXILANT 60 mg capsule 2021-1 2-15 00:00: 00 Yes 60mg Take 1 capsule by mouth in the morning. [facility] 2021-1 2-15 00:00: 00 Yes 1{capsu le} Take 1 capsule by mouth in the morning. [facility] mg capsule 2021-1 2-15 00:00: 00 Yes TAKE 1 CAPSULE BY MOUTH TWICE A DAY WITH FOOD [facility] DEXILANT 60 mg capsule 2021-07 2-15 00:00: 00 Yes 60mg Take 1 capsule by mouth in the morning. [facility] it[facility] ziprasidone 80 mg capsule 2021-07 2-15 00:00: 00 Yes TAKE 1 CAPSULE BY MOUTH TWICE A DAY WITH FOOD [facility] DEX[facility] 60 mg capsule 2021-07 2-15 00:00: 00 Yes 60mg Take 1 capsule by mouth in the morning. [facility] ziprasidone 80 mg capsule 2021- 2-15 00:00: 00 Yes TAKE 1 CAPSULE BY MOUTH TWICE A DAY WITH FOOD [facility] DEX[facility] 60 mg capsule 2021-07 2-15 00:00: 00 Yes 60mg Take 1 capsule by mouth in the morning. [facility] it[facility] ziprasidone 80 mg capsule 2021- 2-15 00:00: 00 Yes TAKE 1 CAPSULE BY MOUTH TWICE A DAY WITH FOOD [facility] DEXILANT 60 mg capsule 2021- 2-15 00:00: 00 Yes 60mg Take 1 capsule by mouth in the morning. [facility] zip[facility] 80 mg capsule 2021-07 2-15 00:00: 00 Yes TAKE 1 CAPSULE BY MOUTH TWICE A DAY WITH FOOD [facility] DEXILANT 60 mg capsule 2021-07 2-15 00:00: 00 Yes 60mg Take 1 capsule by mouth in the morning. [facility] mg capsule 2021-1 2-15 00:00: 00 Yes TAKE 1 CAPSULE BY MOUTH TWICE A DAY WITH FOOD [facility] DEXILANT 60 mg capsule 2021- 2-15 00:00: 00 Yes 60mg Take 1 capsule by mouth in the morning. [facility] 2021- 2-15 00:00: 00 Yes TAKE 1 CAPSULE BY MOUTH TWICE A DAY WITH FOOD [facility] zip[facility] 80 mg capsule 2021-1 2-15 00:00: 00 Yes TAKE 1 CAPSULE BY MOUTH TWICE A DAY WITH FOOD [facility] DEXILANT 60 mg capsule 2021- 2-15 00:00: 00 Yes 60mg Take 1 capsule by mouth in the morning. [facility] ziprasidone 80 mg capsule 2021-07 2-15 00:00: 00 Yes TAKE 1 CAPSULE BY MOUTH TWICE A DAY WITH FOOD [facility] DEXILANT 60 mg capsule 2021-07 2-15 00:00: 00 Yes 60mg Take 1 capsule by mouth in the morning. [facility] DEXILANT 60 mg capsule 2021-07 2-15 00:00: 00 Yes 1{capsu le} Take 1 capsule by mouth in the morning. [facility] ziprasidone 80 mg capsule 2021-07 2-15 00:00: 00 Yes TAKE 1 CAPSULE BY MOUTH TWICE A DAY WITH FOOD [facility] DEXILANT 60 mg capsule 2021-07 2-15 00:00: 00 Yes 60mg Take 1 capsule by mouth in the morning. [facility] ziprasidone 80 mg capsule 2021-07 2-15 00:00: 00 Yes TAKE 1 CAPSULE BY MOUTH TWICE A DAY WITH FOOD [facility] DEXILANT 60 mg capsule 2021-07 2-15 00:00: 00 Yes 60mg Take 1 capsule by mouth in the morning. [facility] ziprasidone 80 mg capsule 2021-07 2-15 00:00: 00 Yes TAKE 1 CAPSULE BY MOUTH TWICE A DAY WITH FOOD [facility] DEXILANT 60 mg capsule 2021-07 2-15 00:00: 00 Yes 60mg Take 1 capsule by mouth in the morning. [facility] ziprasidone 80 mg capsule 2021-07 2-15 00:00: 00 Yes TAKE 1 CAPSULE BY MOUTH TWICE A DAY WITH FOOD [facility] DEXILANT 60 mg capsule 2021-07 2-15 00:00: 00 Yes 60mg Take 1 capsule by mouth in the morning. [facility] ziprasidone 80 mg capsule 2021-07 2-15 00:00: 00 Yes TAKE 1 CAPSULE BY MOUTH TWICE A DAY WITH FOOD [facility] levothyroxi ne 175 mcg tablet 2021-07 1- 00:00: 00 Yes TAKE 1 TABLET BY MOUTH EVERY DAY IN THE MORNING ON EMPTY STOMACH FOR 90 DAYS [facility] levothyroxi ne 175 mcg tablet 2021-07 00:00: 00 Yes TAKE 1 TABLET BY MOUTH EVERY DAY IN THE MORNING ON EMPTY STOMACH FOR 90 DAYS [facility] levothyroxi ne 175 mcg tablet 2021-07 00:00: 00 Yes TAKE 1 TABLET BY MOUTH EVERY DAY IN THE MORNING ON EMPTY STOMACH FOR 90 DAYS [facility] levothyroxi ne 175 mcg tablet 2021-07 00:00: 00 Yes TAKE 1 TABLET BY MOUTH EVERY DAY IN THE MORNING ON EMPTY STOMACH FOR 90 DAYS [facility] it[facility] levothyroxi ne 175 mcg tablet 2021-07 00:00: 00 Yes TAKE 1 TABLET BY MOUTH EVERY DAY IN THE MORNING ON EMPTY STOMACH FOR 90 DAYS [facility] mcg tablet 2021-07 00:00: 00 Yes TAKE 1 TABLET BY MOUTH EVERY DAY IN THE MORNING ON EMPTY STOMACH FOR 90 DAYS [facility] levothyroxi ne 175 mcg tablet 2021-07 00:00: 00 Yes TAKE 1 TABLET BY MOUTH EVERY DAY IN THE MORNING ON EMPTY STOMACH FOR 90 DAYS [facility] lev[facility]xi [facility] 175 mcg tablet 2021-07 00:00: 00 Yes TAKE 1 TABLET BY MOUTH EVERY DAY IN THE MORNING ON EMPTY STOMACH FOR 90 DAYS [facility] lev[facility]xi [facility] 175 mcg tablet 2021-07 00:00: 00 Yes TAKE 1 TABLET BY MOUTH EVERY DAY IN THE MORNING ON EMPTY STOMACH FOR 90 DAYS [facility] levothyroxi ne 175 mcg tablet 2021-07 00:00: 00 Yes TAKE 1 TABLET BY MOUTH EVERY DAY IN THE MORNING ON EMPTY STOMACH FOR 90 DAYS [facility] lev[facility]xi [facility] 175 mcg tablet 2021-07 00:00: 00 Yes TAKE 1 TABLET BY MOUTH EVERY DAY IN THE MORNING ON EMPTY STOMACH FOR 90 DAYS [facility] levothy[facility]xi ne 175 mcg tablet 2021-07 00:00: 00 Yes TAKE 1 TABLET BY MOUTH EVERY DAY IN THE MORNING ON EMPTY STOMACH FOR 90 DAYS [facility] levothyroxi ne 175 mcg tablet 2021-07 00:00: 00 Yes TAKE 1 TABLET BY MOUTH EVERY DAY IN THE MORNING ON EMPTY STOMACH FOR 90 DAYS [facility] levothyroxi ne 175 mcg tablet 2021-07 00:00: 00 Yes TAKE 1 TABLET BY MOUTH EVERY DAY IN THE MORNING ON EMPTY STOMACH FOR 90 DAYS [facility] lev[facility] 175 mcg tablet 2021-07 00:00: 00 Yes TAKE 1 TABLET BY MOUTH EVERY DAY IN THE MORNING ON EMPTY STOMACH FOR 90 DAYS [facility] levothy[facility]xi ne 175 mcg tablet 2021-07 00:00: 00 Yes TAKE 1 TABLET BY MOUTH EVERY DAY IN THE MORNING ON EMPTY STOMACH FOR 90 DAYS [facility] levothyroxi ne 175 mcg tablet 2021-07 00:00: 00 Yes TAKE 1 TABLET BY MOUTH EVERY DAY IN THE MORNING ON EMPTY STOMACH FOR 90 DAYS [facility] levothyroxi ne 175 mcg tablet 2021-07 00:00: 00 Yes TAKE 1 TABLET BY MOUTH EVERY DAY IN THE MORNING ON EMPTY STOMACH FOR 90 DAYS [facility] levothyroxi ne 175 mcg tablet 2021-07 00:00: 00 Yes TAKE 1 TABLET BY MOUTH EVERY DAY IN THE MORNING ON EMPTY STOMACH FOR 90 DAYS [facility] levothyroxi ne 175 mcg tablet 2021-07 00:00: 00 Yes TAKE 1 TABLET BY MOUTH EVERY DAY IN THE MORNING ON EMPTY STOMACH FOR 90 DAYS [facility] levothyroxi ne 175 mcg tablet 2021-07 00:00: 00 Yes TAKE 1 TABLET BY MOUTH EVERY DAY IN THE MORNING ON EMPTY STOMACH FOR 90 DAYS [facility] levothyroxi ne 175 mcg tablet 2021-07 00:00: 00 Yes TAKE 1 TABLET BY MOUTH EVERY DAY IN THE MORNING ON EMPTY STOMACH FOR 90 DAYS [facility] levothyroxi ne 175 mcg tablet 2021-07 00:00: 00 Yes TAKE 1 TABLET BY MOUTH EVERY DAY IN THE MORNING ON EMPTY STOMACH FOR 90 DAYS [facility] levothyroxi ne 175 mcg tablet 2021-07 00:00: 00 Yes TAKE 1 TABLET BY MOUTH EVERY DAY IN THE MORNING ON EMPTY STOMACH FOR 90 DAYS [facility] 175 mcg tablet 2021-07 00:00: 00 Yes TAKE 1 TABLET BY MOUTH EVERY DAY IN THE MORNING ON EMPTY STOMACH FOR 90 DAYS [facility] lev[facility]xi [facility] 175 mcg tablet 2021-07 00:00: 00 Yes TAKE 1 TABLET BY MOUTH EVERY DAY IN THE MORNING ON EMPTY STOMACH FOR 90 DAYS [facility] lev[facility]xi ne 175 mcg tablet 2021-07 00:00: 00 Yes TAKE 1 TABLET BY MOUTH EVERY DAY IN THE MORNING ON EMPTY STOMACH FOR 90 DAYS [facility] lev[facility]xi ne 175 mcg tablet 2021-07 00:00: 00 Yes TAKE 1 TABLET BY MOUTH EVERY DAY IN THE MORNING ON EMPTY STOMACH FOR 90 DAYS [facility] levothy[facility]xi ne 175 mcg tablet 2021-07 00:00: 00 Yes TAKE 1 TABLET BY MOUTH EVERY DAY IN THE MORNING ON EMPTY STOMACH FOR 90 DAYS [facility] levothy[facility]xi ne 175 mcg tablet 2021-07 00:00: 00 Yes TAKE 1 TABLET BY MOUTH EVERY DAY IN THE MORNING ON EMPTY STOMACH FOR 90 DAYS [facility] lev[facility]xi ne 175 mcg tablet 2021-07 00:00: 00 Yes TAKE 1 TABLET BY MOUTH EVERY DAY IN THE MORNING ON EMPTY STOMACH FOR 90 DAYS [facility] levothy[facility]xi ne 175 mcg tablet 2021-07 00:00: 00 Yes TAKE 1 TABLET BY MOUTH EVERY DAY IN THE MORNING ON EMPTY STOMACH FOR 90 DAYS [facility] levothy[facility]xi ne 175 mcg tablet 2021-07 00:00: 00 Yes TAKE 1 TABLET BY MOUTH EVERY DAY IN THE MORNING ON EMPTY STOMACH FOR 90 DAYS [facility] levothy[facility]xi ne 175 mcg tablet 2021-07 00:00: 00 Yes TAKE 1 TABLET BY MOUTH EVERY DAY IN THE MORNING ON EMPTY STOMACH FOR 90 DAYS [facility] lev[facility]xi ne 175 mcg tablet 2021-07 00:00: 00 Yes TAKE 1 TABLET BY MOUTH EVERY DAY IN THE MORNING ON EMPTY STOMACH FOR 90 DAYS [facility] lev[facility]xi ne 175 mcg tablet 2021-07 00:00: 00 Yes TAKE 1 TABLET BY MOUTH EVERY DAY IN THE MORNING ON EMPTY STOMACH FOR 90 DAYS [facility] lev[facility]xi ne 175 mcg tablet 2021-07 00:00: 00 Yes TAKE 1 TABLET BY MOUTH EVERY DAY IN THE MORNING ON EMPTY STOMACH FOR 90 DAYS [facility] levothy[facility]xi ne 175 mcg tablet 2021-07 00:00: 00 Yes TAKE 1 TABLET BY MOUTH EVERY DAY IN THE MORNING ON EMPTY STOMACH FOR 90 DAYS [facility] levothy[facility]xi ne 175 mcg tablet 2021-07 00:00: 00 Yes TAKE 1 TABLET BY MOUTH EVERY DAY IN THE MORNING ON EMPTY STOMACH FOR 90 DAYS [facility] levothyroxi ne 175 mcg tablet 2021-07 00:00: 00 Yes TAKE 1 TABLET BY MOUTH EVERY DAY IN THE MORNING ON EMPTY STOMACH FOR 90 DAYS [facility] levothyroxi ne 175 mcg tablet 2021-07 00:00: 00 Yes TAKE 1 TABLET BY MOUTH EVERY DAY IN THE MORNING ON EMPTY STOMACH FOR 90 DAYS [facility] 175 mcg tablet 2021-07 00:00: 00 Yes TAKE 1 TABLET BY MOUTH EVERY DAY IN THE MORNING ON EMPTY STOMACH FOR 90 DAYS [facility] levothyroxi ne 175 mcg tablet 2021-07 00:00: 00 Yes TAKE 1 TABLET BY MOUTH EVERY DAY IN THE MORNING ON EMPTY STOMACH FOR 90 DAYS [facility] levothyroxi ne 175 mcg tablet 2021-07 00:00: 00 Yes TAKE 1 TABLET BY MOUTH EVERY DAY IN THE MORNING ON EMPTY STOMACH FOR 90 DAYS [facility] levothyroxi ne 175 mcg tablet 2021-07 00:00: 00 Yes TAKE 1 TABLET BY MOUTH EVERY DAY IN THE MORNING ON EMPTY STOMACH FOR 90 DAYS [facility] levothyroxi ne 175 mcg tablet 2021-07 00:00: 00 Yes TAKE 1 TABLET BY MOUTH EVERY DAY IN THE MORNING ON EMPTY STOMACH FOR 90 DAYS [facility] proMETHazin e 25 mg tablet 2021-07 00:00: 00 Yes TAKE 1 TABLET BY MOUTH EVERY 4 HOURS [facility] proMETHazin e 25 mg tablet 2021-07 00:00: 00 Yes TAKE 1 TABLET BY MOUTH EVERY 4 HOURS [facility] proMETHazin e 25 mg tablet 2021-07 00:00: 00 Yes TAKE 1 TABLET BY MOUTH EVERY 4 HOURS [facility] proMETHazin e 25 mg tablet 2021-07 00:00: 00 Yes TAKE 1 TABLET BY MOUTH EVERY 4 HOURS [facility] proMETHazin e 25 mg tablet 2021-07 00:00: 00 Yes TAKE 1 TABLET BY MOUTH EVERY 4 HOURS [facility] proMETHazin e 25 mg tablet 2021-07 00:00: 00 Yes TAKE 1 TABLET BY MOUTH EVERY 4 HOURS [facility] proMETHazin e 25 mg tablet 2021-07 00:00: 00 Yes TAKE 1 TABLET BY MOUTH EVERY 4 HOURS [facility] proMETHazin e 25 mg tablet 2021-07 00:00: 00 Yes TAKE 1 TABLET BY MOUTH EVERY 4 HOURS [facility] proMETHazin e 25 mg tablet 2021-07 00:00: 00 Yes TAKE 1 TABLET BY MOUTH EVERY 4 HOURS [facility] proMETHazin e 25 mg tablet 2021-07 00:00: 00 Yes TAKE 1 TABLET BY MOUTH EVERY 4 HOURS [facility] proMETHazin e 25 mg tablet 2021-07 00:00: 00 Yes TAKE 1 TABLET BY MOUTH EVERY 4 HOURS [facility] proMETHazin e 25 mg tablet 2021-07 00:00: 00 Yes TAKE 1 TABLET BY MOUTH EVERY 4 HOURS [facility] proMETHazin e 25 mg tablet 2021-07 00:00: 00 Yes TAKE 1 TABLET BY MOUTH EVERY 4 HOURS [facility] proMETHazin e 25 mg tablet 2021-07 00:00: 00 Yes TAKE 1 TABLET BY MOUTH EVERY 4 HOURS [facility] proMETHazin e 25 mg tablet 2021-07 00:00: 00 Yes TAKE 1 TABLET BY MOUTH EVERY 4 HOURS [facility] proMETHazin e 25 mg tablet 2021-07 00:00: 00 Yes TAKE 1 TABLET BY MOUTH EVERY 4 HOURS [facility] proMETHazin e 25 mg tablet 2021-07 00:00: 00 Yes TAKE 1 TABLET BY MOUTH EVERY 4 HOURS [facility] proMETHazin e 25 mg tablet 2021-07 00:00: 00 Yes TAKE 1 TABLET BY MOUTH EVERY 4 HOURS [facility] proMETHazin e 25 mg tablet 2021-07 00:00: 00 Yes TAKE 1 TABLET BY MOUTH EVERY 4 HOURS [facility] proMETHazin e 25 mg tablet 2021-07 00:00: 00 Yes TAKE 1 TABLET BY MOUTH EVERY 4 HOURS [facility] proMETHazin e 25 mg tablet 2021-07 00:00: 00 Yes TAKE 1 TABLET BY MOUTH EVERY 4 HOURS [facility] proMETHazin e 25 mg tablet 2021-07 00:00: 00 Yes TAKE 1 TABLET BY MOUTH EVERY 4 HOURS [facility] proMETHazin e 25 mg tablet 2021-07 00:00: 00 Yes TAKE 1 TABLET BY MOUTH EVERY 4 HOURS [facility] proMETHazin e 25 mg tablet 2021-07 00:00: 00 Yes TAKE 1 TABLET BY MOUTH EVERY 4 HOURS [facility] proMETHazin e 25 mg tablet 2021-07 00:00: 00 Yes TAKE 1 TABLET BY MOUTH EVERY 4 HOURS [facility] proMETHazin e 25 mg tablet 2021-07 00:00: 00 Yes TAKE 1 TABLET BY MOUTH EVERY 4 HOURS [facility] proMETHazin e 25 mg tablet 2021-07 00:00: 00 Yes TAKE 1 TABLET BY MOUTH EVERY 4 HOURS [facility] proMETHazin e 25 mg tablet 2021-07 00:00: 00 Yes TAKE 1 TABLET BY MOUTH EVERY 4 HOURS [facility] proMETHazin e 25 mg tablet 2021-07 00:00: 00 Yes TAKE 1 TABLET BY MOUTH EVERY 4 HOURS [facility] proMETHazin e 25 mg tablet 2021-07 00:00: 00 Yes TAKE 1 TABLET BY MOUTH EVERY 4 HOURS [facility] proMETHazin e 25 mg tablet 2021-07 00:00: 00 Yes TAKE 1 TABLET BY MOUTH EVERY 4 HOURS [facility] proMETHazin e 25 mg tablet 2021-07 00:00: 00 Yes TAKE 1 TABLET BY MOUTH EVERY 4 HOURS [facility] proMETHazin e 25 mg tablet 2021-07 00:00: 00 Yes TAKE 1 TABLET BY MOUTH EVERY 4 HOURS [facility] proMETHazin e 25 mg tablet 2021-07 00:00: 00 Yes TAKE 1 TABLET BY MOUTH EVERY 4 HOURS [facility] proMETHazin e 25 mg tablet 2021-07 00:00: 00 Yes TAKE 1 TABLET BY MOUTH EVERY 4 HOURS [facility] proMETHazin e 25 mg tablet 2021-07 00:00: 00 Yes TAKE 1 TABLET BY MOUTH EVERY 4 HOURS [facility] proMETHazin e 25 mg tablet 2021-07 00:00: 00 Yes TAKE 1 TABLET BY MOUTH EVERY 4 HOURS [facility] proMETHazin e 25 mg tablet 2021-07 00:00: 00 Yes TAKE 1 TABLET [facility] MOUTH [facility] 2021-07 00:00: 00 Yes TAKE 1 TABLET BY MOUTH EVERY 4 HOURS [facility] proMETHazin e 25 mg tablet 2021-07 00:00: 00 Yes TAKE 1 TABLET BY MOUTH EVERY 4 HOURS [facility] proMETHazin e 25 mg tablet 2021-07 00:00: 00 Yes TAKE 1 TABLET BY MOUTH EVERY 4 HOURS [facility] proMETHazin e 25 mg tablet 2021-07 00:00: 00 Yes TAKE 1 TABLET BY MOUTH EVERY 4 HOURS [facility] proMETHazin e 25 mg tablet 2021-07 00:00: 00 Yes TAKE 1 TABLET BY MOUTH EVERY 4 HOURS [facility] proMETHazin e 25 mg tablet 2021-07 00:00: 00 Yes TAKE 1 TABLET BY MOUTH EVERY 4 HOURS [facility] proMETHazin e 25 mg tablet 2021-07 00:00: 00 Yes TAKE 1 TABLET BY MOUTH EVERY 4 HOURS [facility] proMETHazin e 25 mg tablet 2021-07 00:00: 00 Yes TAKE 1 TABLET BY MOUTH EVERY 4 HOURS [facility] busPIRone 15 mg tablet 2021-07 00:00: 00 Yes 15mg Take 1 tablet by mouth in the morning and 1 tablet at noon and 1 tablet in the evening. [facility] busPIRone 15 mg tablet 2021-07 00:00: 00 Yes 15mg Take 15 mg by mouth in the morning and 15 mg at noon and 15 mg in the evening. [facility] busPIRone 15 mg tablet 2021-07 00:00: 00 Yes 15mg Take 1 tablet by mouth in the morning and 1 tablet at noon and 1 tablet in the evening. [facility] busPIRone 15 mg tablet 2021-07 00:00: 00 Yes 15mg Take 1 tablet by mouth in the morning and 1 tablet at noon and 1 tablet in the evening. [facility] busPIRone 15 mg tablet 2021-07 00:00: 00 Yes 15mg Take 1 tablet by mouth in the morning and 1 tablet at noon and 1 tablet in the evening. [facility] busPIRone 15 mg tablet 2021-07 00:00: 00 Yes 15mg Take 1 tablet by mouth in the morning and 1 tablet at noon and 1 tablet in the evening. [facility] busPIRone 15 mg tablet 2021-07 00:00: 00 Yes 15mg Take 1 tablet by mouth in the morning and 1 tablet at noon and 1 tablet in the evening. [facility] busPIRone 15 mg tablet 2021-07 00:00: 00 Yes 15mg Take 1 tablet by mouth in the morning and 1 tablet at noon and 1 tablet in the evening. [facility] busPIRone 15 mg tablet 2021-07 00:00: 00 Yes 15mg Take 1 tablet by mouth in the morning and 1 tablet at noon and 1 tablet in the evening. [facility] busPIRone 15 mg tablet 2021-07 00:00: 00 Yes 15mg Take 1 tablet by mouth in the morning and 1 tablet at noon and 1 tablet in the evening. [facility] busPIRone 15 mg tablet 2021-07 00:00: 00 Yes 15mg Take 15 mg by mouth in the morning and 15 mg at noon and 15 mg in the evening. [facility] busPIRone 15 mg tablet 2021-07 00:00: 00 Yes 15mg Take 1 tablet by mouth in the morning and 1 tablet at noon and 1 tablet in the evening. [facility] busPIRone 15 mg tablet 2021-07 00:00: 00 Yes 15mg Take 1 tablet by mouth in the morning and 1 tablet at noon and 1 tablet in the evening. [facility] busPIRone 15 mg tablet 2021-07 00:00: 00 Yes 15mg Take 15 mg by mouth in the morning and 15 mg at noon and 15 mg in the evening. [facility] busPIRone 15 mg tablet 2021-07 00:00: 00 Yes 15mg Take 15 mg by mouth in the morning and 15 mg at noon and 15 mg in the evening. [facility] busPIRone 15 mg tablet 2021-07 00:00: 00 Yes 15mg Take 15 mg by mouth in the morning and 15 mg at noon and 15 mg in the evening. [facility] busPIRone 15 mg tablet 2021-07 00:00: 00 Yes 15mg Take 15 mg by mouth in the morning and 15 mg at noon and 15 mg in the evening. [facility] busPIRone 15 mg tablet 2021-07 00:00: 00 Yes 15mg Take 15 mg by mouth in the morning and 15 mg at noon and 15 mg in the evening. [facility] busPIRone 15 mg tablet 2021-07 00:00: 00 Yes 15mg Take 15 mg by mouth in the morning and 15 mg at noon and 15 mg in the evening. [facility] 2021-07 00:00: 00 Yes 15mg Take 15 mg by mouth in the morning and 15 mg at noon and 15 mg in the evening. [facility] busPIRone 15 mg tablet 2021-07 00:00: 00 Yes 15mg Take 15 mg by mouth in the morning and 15 mg at noon and 15 mg in the evening. [facility] 2021-07 00:00: 00 Yes 15mg Take 15 mg by mouth in the morning and 15 mg at noon and 15 mg in the evening. [facility] busPIRone 15 mg tablet 2021-07 00:00: 00 Yes 15mg Take 15 mg by mouth in the morning and 15 mg at noon and 15 mg in the evening. [facility] busPIRone 15 mg tablet 2021-07 00:00: 00 Yes 15mg Take 15 mg by mouth in the morning and 15 mg at noon and 15 mg in the evening. [facility] busPIRone 15 mg tablet 2021-07 00:00: 00 Yes 15mg Take 15 mg by mouth in the morning and 15 mg at noon and 15 mg in the evening. [facility] busPIRone 15 mg tablet 2021-07 00:00: 00 Yes 15mg Take 15 mg by mouth in the morning and 15 mg at noon and 15 mg in the evening. [facility] busPIRone 15 mg tablet 2021-07 00:00: 00 Yes 15mg Take 15 mg by mouth in the morning and 15 mg at noon and 15 mg in the evening. [facility] busPIRone 15 mg tablet 2021-07 00:00: 00 Yes 15mg Take 15 mg by mouth in the morning and 15 mg at noon and 15 mg in the evening. [facility] busPIRone 15 mg tablet 2021-07 00:00: 00 Yes 15mg Take 15 mg by mouth in the morning and 15 mg at noon and 15 mg in the evening. [facility] busPIRone 15 mg tablet 2021-07 00:00: 00 Yes 15mg Take 15 mg by mouth in the morning and 15 mg at noon and 15 mg in the evening. [facility] busPIRone 15 mg tablet 2021-07 00:00: 00 Yes 15mg Take 15 mg by mouth in the morning and 15 mg at noon and 15 mg in the evening. [facility] busPIRone 15 mg tablet 2021-07 00:00: 00 Yes 15mg Take 1 tablet by mouth in the morning and 1 tablet at noon and 1 tablet in the evening. [facility] busPIRone 15 mg tablet 2021-07 00:00: 00 Yes 15mg Take 1 tablet by mouth in the morning and 1 tablet at noon and 1 tablet in the evening. [facility] busPIRone 15 mg tablet 2021-07 00:00: 00 Yes 15mg Take 1 tablet by mouth in the morning and 1 tablet at noon and 1 tablet in the evening. [facility] busPIRone 15 mg tablet 2021-07 00:00: 00 Yes 15mg Take 1 tablet by mouth in the morning and 1 tablet at noon and 1 tablet in the evening. [facility] busPIRone 15 mg tablet 2021-07 00:00: 00 Yes 15mg Take 1 tablet by mouth in the morning and 1 tablet at noon and 1 tablet in the evening. [facility] busPIRone 15 mg tablet 2021-07 00:00: 00 Yes 15mg Take 1 tablet by mouth in the morning and 1 tablet at noon and 1 tablet in the evening. [facility] busPIRone 15 mg tablet 2021-07 00:00: 00 Yes 15mg Take 1 tablet by mouth in the morning and 1 tablet at noon and 1 tablet in the evening. [facility] busPIRone 15 mg tablet 2021-07 00:00: 00 Yes 15mg Take 15 mg by mouth in the morning and 15 mg at noon and 15 mg in the evening. [facility] 2021-07 00:00: 00 Yes 15mg Take 1 tablet by mouth in the morning and 1 tablet at noon and 1 tablet in the evening. [facility] busPIRone 15 mg tablet 2021-07 00:00: 00 Yes 15mg Take 1 tablet by mouth in the morning and 1 tablet at noon and 1 tablet in the evening. [facility] busPIRone 15 mg tablet 2021-07 00:00: 00 Yes 15mg Take 1 tablet by mouth in the morning and 1 tablet at noon and 1 tablet in the evening. [facility] busPIRone 15 mg tablet 2021-07 00:00: 00 Yes 15mg Take 1 tablet by mouth in the morning and 1 tablet at noon and 1 tablet in the evening. [facility] busPIRone 15 mg tablet 2021-07 00:00: 00 Yes 15mg Take 1 tablet by mouth in the morning and 1 tablet at noon and 1 tablet in the evening. [facility] busPIRone 15 mg tablet 2021-07 00:00: 00 Yes 15mg Take 1 tablet by mouth in the morning and 1 tablet at noon and 1 tablet in the evening. [facility] busPIRone 15 mg tablet 2021-07 00:00: 00 Yes 15mg Take 1 tablet by mouth in the morning and 1 tablet at noon and 1 tablet in the evening. [facility] insulin aspart U-100 (NOVOLOG FLEXPEN U-100 INSULIN) 100 unit/mL (3 mL) injection 2021-07 0-18 00:00: 00 Yes 3-6 [facility] insulin aspart U-100 (NOVOLOG FLEXPEN U-100 INSULIN) 100 unit/mL (3 mL) injection 2021-07 0-18 00:00: 00 Yes 3-6 [facility] insulin aspart U-100 (NOVOLOG FLEXPEN U-100 INSULIN) 100 unit/mL (3 mL) injection 2021-07 0-18 00:00: 00 Yes 3-6 [facility] insulin aspart U-100 (NOVOLOG FLEXPEN U-100 INSULIN) 100 unit/mL (3 mL) injection 2021-07 0-18 00:00: 00 Yes 3-6 [facility] insulin aspart U-100 (NOVOLOG FLEXPEN U-100 INSULIN) 100 unit/mL (3 mL) injection 2021-07 0-18 00:00: 00 Yes 3-6 [facility] insulin aspart U-100 (NOVOLOG FLEXPEN U-100 INSULIN) 100 unit/mL (3 mL) injection 2021-07 0-18 00:00: 00 Yes 3-6 [facility] insulin aspart U-100 (NOVOLOG FLEXPEN U-100 INSULIN) 100 unit/mL (3 mL) injection 2021-07 018 00:00: 00 Yes 3-6 [facility] insulin aspart U-100 (NOVOLOG FLEXPEN U-100 INSULIN) 100 unit/mL (3 mL) injection 2021-07 018 00:00: 00 Yes 3-6 [facility] insulin aspart U-100 (NOVOLOG FLEXPEN U-100 INSULIN) 100 unit/mL (3 mL) injection 2021-07 018 00:00: 00 Yes 3-6 [facility] insulin aspart U-100 (NOVOLOG FLEXPEN U-100 INSULIN) 100 unit/mL (3 mL) injection 2021-07 018 00:00: 00 Yes 3-6 [facility] insulin aspart U-100 (NOVOLOG FLEXPEN U-100 INSULIN) 100 unit/mL (3 mL) injection 2021-07 018 00:00: 00 Yes 3-6 [facility] insulin aspart U-100 (NOVOLOG FLEXPEN U-100 INSULIN) 100 unit/mL (3 mL) injection 2021-07 0-18 00:00: 00 Yes 3-6 [facility] insulin aspart U-100 (NOVOLOG FLEXPEN U-100 INSULIN) 100 unit/mL (3 mL) injection 2021-07 0-18 00:00: 00 Yes 3-6 [facility] insulin aspart U-100 (NOVOLOG FLEXPEN U-100 INSULIN) 100 unit/mL (3 mL) injection 2021-07 0-18 00:00: 00 Yes 3-6 [facility] insulin aspart U-100 (NOVOLOG FLEXPEN U-100 INSULIN) 100 unit/mL (3 mL) injection 2021-07 0-18 00:00: 00 Yes 3-6 [facility] insulin aspart U-100 (NOVOLOG FLEXPEN U-100 INSULIN) 100 unit/mL (3 mL) injection 2021-07 0-18 00:00: 00 Yes 3-6 [facility] insulin aspart U-100 (NOVOLOG FLEXPEN U-100 INSULIN) 100 unit/mL (3 mL) injection 2021-07 018 00:00: 00 Yes 3-6 [facility] insulin aspart U-100 (NOVOLOG FLEXPEN U-100 INSULIN) 100 unit/mL (3 mL) injection 2021-07 018 00:00: 00 Yes 3-6 [facility] insulin aspart U-100 (NOVOLOG FLEXPEN U-100 INSULIN) 100 unit/mL (3 mL) injection 2021-07 018 00:00: 00 Yes 3-6 [facility] insulin aspart U-100 (NOVOLOG FLEXPEN U-100 INSULIN) 100 unit/mL (3 mL) injection 2021-07 018 00:00: 00 Yes 3-6 [facility] insulin aspart U-100 (NOVOLOG FLEXPEN U-100 INSULIN) 100 unit/mL (3 mL) injection 2021-07 018 00:00: 00 Yes 3-6 [facility] insulin aspart U-100 (NOVOLOG FLEXPEN U-100 INSULIN) 100 unit/mL (3 mL) injection 2021-07 0-18 00:00: 00 Yes 3-6 [facility] insulin aspart U-100 (NOVOLOG FLEXPEN U-100 INSULIN) 100 unit/mL (3 mL) injection 2021-07 0-18 00:00: 00 Yes 3-6 [facility] insulin aspart U-100 (NOVOLOG FLEXPEN U-100 INSULIN) 100 unit/mL (3 mL) injection 2021-07 0-18 00:00: 00 Yes 3-6 [facility] insulin aspart U-100 (NOVOLOG FLEXPEN U-100 INSULIN) 100 unit/mL (3 mL) injection 2021-07 0-18 00:00: 00 Yes 3-6 [facility] insulin aspart U-100 (NOVOLOG FLEXPEN U-100 INSULIN) 100 unit/mL (3 mL) injection 2021-07 0-18 00:00: 00 Yes 3-6 [facility] insulin aspart U-100 (NOVOLOG FLEXPEN U-100 INSULIN) 100 unit/mL (3 mL) injection 2021-07 018 00:00: 00 Yes 3-6 [facility] insulin aspart U-100 (NOVOLOG FLEXPEN U-100 INSULIN) 100 unit/mL (3 mL) injection 2021-07 018 00:00: 00 Yes 3-6 [facility] insulin aspart U-100 (NOVOLOG FLEXPEN U-100 INSULIN) 100 unit/mL (3 mL) injection 2021-07 018 00:00: 00 Yes 3-6 [facility] insulin aspart U-100 (NOVOLOG FLEXPEN U-100 INSULIN) 100 unit/mL (3 mL) injection 2021-07 018 00:00: 00 Yes 3-6 [facility] insulin aspart U-100 (NOVOLOG FLEXPEN U-100 INSULIN) 100 unit/mL (3 mL) injection 2021-07 018 00:00: 00 Yes 3-6 [facility] insulin aspart U-100 (NOVOLOG FLEXPEN U-100 INSULIN) 100 unit/mL (3 mL) injection 2021-07 0-18 00:00: 00 Yes 3-6 [facility] insulin aspart U-100 (NOVOLOG FLEXPEN U-100 INSULIN) 100 unit/mL (3 mL) injection 2021-07 0-18 00:00: 00 Yes 3-6 [facility] insulin aspart U-100 (NOVOLOG FLEXPEN U-100 INSULIN) 100 unit/mL (3 mL) injection 2021-07 0-18 00:00: 00 Yes 3-6 [facility] insulin aspart U-100 (NOVOLOG FLEXPEN U-100 INSULIN) 100 unit/mL (3 mL) injection 2021-07 0-18 00:00: 00 Yes 3-6 [facility] insulin aspart U-100 (NOVOLOG FLEXPEN U-100 INSULIN) 100 unit/mL (3 mL) injection 2021-07 0-18 00:00: 00 Yes 3-6 [facility] insulin aspart U-100 (NOVOLOG FLEXPEN U-100 INSULIN) 100 unit/mL (3 mL) injection 2021-07 018 00:00: 00 Yes 3-6 [facility] insulin aspart U-100 (NOVOLOG FLEXPEN U-100 INSULIN) 100 unit/mL (3 mL) injection 2021-07 018 00:00: 00 Yes 3-6 [facility] insulin aspart U-100 (NOVOLOG FLEXPEN U-100 INSULIN) 100 unit/mL (3 mL) injection 2021-07 018 00:00: 00 Yes 3-6 [facility] insulin aspart U-100 (NOVOLOG FLEXPEN U-100 INSULIN) 100 unit/mL (3 mL) injection 2021-07 018 00:00: 00 Yes 3-6 [facility] insulin aspart U-100 (NOVOLOG FLEXPEN U-100 INSULIN) 100 unit/mL (3 mL) injection 2021-07 018 00:00: 00 Yes 3-6 [facility] insulin aspart U-100 (NOVOLOG FLEXPEN U-100 INSULIN) 100 unit/mL (3 mL) injection 2021-07 018 00:00: 00 Yes 3-6 [facility] insulin aspart U-100 (NOVOLOG FLEXPEN U-100 INSULIN) 100 unit/mL (3 mL) injection 2021-07 0-18 00:00: 00 Yes 3-6 [facility] insulin aspart U-100 (NOVOLOG FLEXPEN U-100 INSULIN) 100 unit/mL (3 mL) injection 2021-07 0-18 00:00: 00 Yes 3-6 [facility] insulin aspart U-100 (NOVOLOG FLEXPEN U-100 INSULIN) 100 unit/mL (3 mL) injection 2021-07 0-18 00:00: 00 Yes 3-6 [facility] insulin aspart U-100 (NOVOLOG FLEXPEN U-100 INSULIN) 100 unit/mL (3 mL) injection 2021-07 0-18 00:00: 00 Yes 3-6 [facility] Vital Signs Vital Name Observation Time Observation Value [facility] young Systolic blood pressure 2023-03-27 15:19:00 112 mm[Hg] [facility] Diastolic blood pressure 2023-03-27 15:19:00 67 mm[Hg] [facility] Heart rate 2023-03-27 15:19:00 95 /min [facility] Respiratory rate 2023-03-27 15:19:00 18 /min [facility] Body height 2023-03-27 15:19:00 152.4 cm [facility] Body weight 2023-03-27 15:19:00 52.3 kg [facility] BMI 2023-03-27 15:19:00 22.52 kg/m2 [facility] Oxygen saturation in Arterial blood by Pulse oximetry 2023-03-27 15:19:00 95 /min [facility] Systolic blood pressure 2023-01-22 13:50:00 131 mm[Hg] [facility] Diastolic blood pressure 2023-01-22 13:50:00 82 mm[Hg] [facility] Heart rate 2023-01-22 13:50:00 82 /min [facility] Respiratory rate 2023-01-22 13:50:00 18 /min [facility] Body height 2023-01-22 13:50:00 152.4 cm [facility] Body weight 2023-01-22 13:50:00 54.432 kg [facility] BMI 2023-01-22 13:50:00 23.44 kg/m2 [facility] Systolic blood pressure 2022-12-10 13:15:00 158 mm[Hg] [facility] Diastolic blood pressure 2022-12-10 13:15:00 91 mm[Hg] [facility] Heart rate 2022-12-10 13:15:00 95 /min [facility] Body height 2022-12-10 13:15:00 152.4 cm [facility] Body weight 2022-12-10 13:15:00 53.57 kg [facility] BMI 2022-12-10 13:15:00 23.06 kg/m2 [facility] Oxygen saturation in Arterial blood by Pulse oximetry 2022-12-10 13:15:00 96 /min [facility] Systolic blood pressure 2022-08-05 15:03:00 130 mm[Hg] [facility] Diastolic blood pressure 2022-08-05 15:03:00 75 mm[Hg] [facility] Heart rate 2022-08-05 15:03:00 83 /min [facility] Respiratory rate 2022-08-05 15:03:00 18 /min [facility] Body height 2022-08-05 15:03:00 152.4 cm [facility] Body weight 2022-08-05 15:03:00 53.524 kg [facility] BMI 2022-08-05 15:03:00 23.05 kg/m2 [facility] Oxygen saturation in Arterial blood by Pulse oximetry 2022-08-05 15:03:00 96 /min [facility] Procedures Procedure Date / Time Performed Performing Clinician Source EXTERNAL PROVIDER RECORDS 2023-02-17 05:01:00 Do ctor Unassigned, Florien [facility] EXTERNAL MAMMOGRAM 2023-02-10 00:00:00 Vanesa Fink [facility] EXTERNAL MAMMOGRAM 2023-02-10 00:00:00 Vanesa Fink [facility] EXTERNAL MAMMOGRAM 2023-02-10 00:00:00 Vanesa Fink [facility] EXTERNAL MAMMOGRAM 2023-02-10 00:00:00 Vanesa Fink [facility] PHYSICIAN ORDERS 2023-01-22 05:01:00 Doctor Unas signed, Florien [facility] AUTHORIZATION TO RELEASE PHI TO [facility] 2022-12-10 05:01:00 Doctor Unassigned, Florien [facility] REFERRAL- REQUEST/RESPONSE 2022-10-06 05:01:00 Doctor Unassigned, Florien [facility] MEDICATION CORRESPONDENCE 2022-08-22 06:01:00 Do ctor Unassigned, Florien [facility] HB ECG ROUTINE & RHYTHM STRIP 2022-08-05 15:06:36 Chaz Rojas [facility] Encounters Start Date/Time End Date/Time Encounter Type Admission Type Attending [facility] Care Facility Care Department Encounter ID Source 2021-12-03 16:19:02 Outpatient [facility] [id number] [facility] 2021-11-29 08:03:02 Outpatient [facility] [id number] [facility] 2023-09-02 00:00:00 2023-09-02 00:00:[facility] 1.2.840.114 350.1.13.10 4.2.7.2.686 [id number] 059 [id number] [facility] 2023-08-24 00:00:00 2023-08-24 00:00:00 [facility] 1.2.840.114 350.1.13.10 4.2.7.2.686 [id number] 059 [id number] [facility] 2023-08-17 15:20:00 2023-08-17 15:20:00 Outpatient R CHAZ ROJAS [facility] [id number] [facility] 2023-08-07 00:00:00 2023-08-07 00:00:00 [facility] 1.2.840.114 350.1.13.10 4.2.7.2.686 [id number] 059 [id number] [facility] 2023-07-27 00:00:00 2023-07-27 00:00:00 [facility] 1.2.840.114 350.1.13.10 4.2.7.2.686 [id number] 059 [id number] [facility] 2023-06-18 11:20:00 2023-06-18 11:20:00 [facility] [id number] [facility] 2023-06-04 00:00:00 2023-06-04 00:00:00 Refill Josie Cecilio Rukhsana [facility] BU[facility] 1.2.840.114 350.1.13.10 4.2.7.2.686 [id number] 059 [id number] [facility] 2023-05-27 00:00:00 2023-05-27 00:00:00 Refill Bob [facility] BUILDING 1.2.840.114 350.1.13.10 4.2.7.2.686 [id number] 059 [id number] [facility] 2023-05-20 00:00:00 2023-05-20 00:00:00 [facility] 1.2.840.114 350.1.13.10 4.2.7.2.686 [id number] 059 [id number] [facility] 2023-03-27 10:20:00 2023-03-27 10:40:00 [facility] 1.2.840.114 350.1.13.10 4.2.7.2.686 [id number] 059 [id number] [facility] 2023-03-27 10:20:00 2023-03-27 10:20:00 [facility] [id number] [facility] 2023-03-25 09:20:00 2023-03-25 09:20:00 [facility] [id number] [facility] 2023-03-06 00:00:00 2023-03-06 00:00:00 Cecilio Rice [facility] 1.2840.114 350.1.13.10 4.2.7.2.686 [id number] 059 [id number] [facility] 2023-02-23 00:00:00 2023-02-23 00:00:00 Telephone Emmy Fink [facility] 1.0.114 350.1.13.10 4.2.7.2.686 [id number] [facility] 2023-02-17 00:00:00 2023-02-17 00:00:00 Orders Only Doctor Unassigned, Florien [facility] 1.840.114 350.1.13.10 4.2.7.2.686 [id number] 009 [id number] [facility] 2023-02-16 00:00:00 2023-02-16 00:00:00 Abstract Samanta [facility] 1.0.114 350.1.13.10 4.2.7.2.686 [id number] [facility] 2023-02-16 00:00:00 2023-02-16 00:00:00 Abstract Samanta [facility] 1.2840.114 350.1.13.10 4.2.7.2.686 [id number] 134 [id number] [facility] 2023-02-13 00:00:00 2023-02-13 00:00:[address] [facility] 1.2840.114 350.1.13.10 4.2.7.2.686 [id number] 134 [id number] [facility] 2023-02-12 00:00:00 2023-02-12 00:00:00 [facility] 1.84.114 350.1.13.10 4.2.7.2.686 [id number] [facility] 2023-02-12 00:00:00 2023-02-12 00:00:00 Abstract Kailee [facility] 1.840.114 350.1.13.10 4.2.7.2.686 [id number] 134 [id number] [facility] 2023-02-12 00:00:00 2023-02-12 00:00:00 Telephone Kailee [facility] 1.84.114 350.1.13.10 4.2.7.2.686 [id number] 134 [id number] [facility] 2023-01-26 09:40:00 2023-01-26 09:40:00 Outpatient R CHAZ ROJAS [facility] [id number] [facility] 2023-01-26 08:00:00 2023-01-26 08:00:00 Outpatient R CECILIO GALINDO [facility] [id number] [facility] 2023-01-22 08:30:00 2023-01-22 09:12:11 [facility] [id number] [facility] 2023-01-22 08:30:00 2023-01-22 09:12:11 Office Visit Kailee [facility] 1.84.114 350.1.13.10 4.2.7.2.686 [id number] [facility] 2023-01-22 00:00:00 2023-01-22 00:00:00 Orders Only Doctor Unassigned, Florien [facility] 1.84.114 350.1.13.10 4.2.7.2.686 [id number] 009 [id number] [facility] 2023-01-01 00:00:00 2023-01-01 00:00:00 Telephone Cecilio Galindo [facility] BUILDING 1.2.840.114 350.1.13.10 4.2.7.2.686 [id number] 059 [id number] [facility] 2022-12-11 00:00:00 2022-12-11 00:00:00 Telephone Cecilio Galindo [facility] BUILD[facility] 1.2.840.114 350.1.13.10 4.2.7.2.686 [id number] 059 [id number] [facility] 2022-12-10 10:15:00 2022-12-10 10:15:00 Meeting Coordinator Visit 2, [facility] Cecilio Galindo [facility] BUILDING 1.2.840.114 350.1.13.10 4.2.7.2.686 [id number] [facility] 2022-12-10 08:00:00 2022-12-10 08:42:16 Outpatient R CECILIO GALINDO [facility] [id number] [facility] 2022-12-10 08:00:00 2022-12-10 08:42:16 Office Visit Cecilio Galindo [facility] BUILD[facility] 1.2.840.114 350.1.13.10 4.2.7.2.686 [id number] 059 [id number] [facility] 2022-12-10 00:00:00 2022-12-10 00:00:00 Telephone Cecilio Galindo [facility] BU[facility] 1.2.840.114 350.1.13.10 4.2.7.2.686 [id number] 059 [id number] [facility] 2022-12-10 00:00:00 2022-12-10 00:00:00 Orders Only Doctor Unassigned, Florien [facility] 1.2.840.114 350.1.13.10 4.2.7.2.686 [id number] 009 [id number] [facility] 2022-10-06 00:00:00 2022-10-06 00:00:00 Orders Only Doctor Unassigned, Florien [facility] 1.2.840.114 350.1.13.10 4.2.7.2.686 [id number] 009 [id number] [facility] 2022-08-27 00:00:00 2022-08-27 00:00:00 Telephone Bob [employer]ique[employer]ings [facility] BUILDING 1.2.840.114 350.1.13.10 4.2.7.2.686 [id number] 059 [id number] [facility] 2022-08-22 00:00:00 2022-08-22 00:00:00 Telephone Bob Angelique[employer]ings [facility] 1.2840.114 350.1.13.10 4.2.7.2.686 [id number] 059 [id number] [facility] 2022-08-22 00:00:00 2022-08-22 00:00:00 Orders Only Doctor Unassigned, Florien [facility] 1.2.840.114 350.1.13.10 4.2.7.2.686 [id number] 009 [id number] [facility] 2022-08-08 00:00:00 2022-08-08 00:00:00 Telephone Bob [employer] [facility] BUILD[facility] 1.2.840.114 350.1.13.10 4.2.7.2.686 [id number] 059 [id number] [facility] 2022-08-07 00:00:00 2022-08-07 00:00:00 Telephone Bob [employer] [facility] 1.2.840.114 350.1.13.10 4.2.7.2.686 [id number] 059 [id number] [facility] 2022-08-07 00:00:00 2022-08-07 00:00:00 [facility] 1.2.840.114 350.1.13.10 4.2.7.2.686 [id number] 059 [id number] [facility] 2022-08-05 09:00:00 2022-08-05 09:26:00 Office Visit Bob [facility] 1.2.840.114 350.1.13.10 4.2.7.2.686 [id number] 059 [id number] [facility] 2022-08-05 09:00:00 2022-08-05 09:26:00 [facility] [id number] [facility] 2021-07-18 09:00:00 2021-07-18 09:00:[place] [id number] [facility] 2021-05-28 08:01:00 2021-05-28 08:01:00 Outpatient [facility] [id number] [facility] Notes Date/Time Note Provider Source 2023-09-02 14:41:21 HeeSFMX16fmj7VodU83G 2I9YzonAq1 tLdyF6BA6sErJwOHwylLDBm7tULjF/ 2Er99864-73-36Y19:41:21Formatt ing of this note is different from the original.MARIEL 9.22.23NOV noneCBC BMP LFTsNo results found for: "WBC" NA (mmol/L)Date Value12/10/2022 138No results found for: "ALKPHOS"No results found for: "HGB" K (mmol/L)Date Value12/10/2022 4.9No results found for: "ALT"No results found for: "HCT" CALCIUM (mg/dL)Date Value12/10/2022 8.6No results found for: "AST"No results found for: "PLT" CL (mmol/L)Date Value12/10/2022 102No results found for: "RBC" BUN (mg/dL)Date Value12/10/2022 19CardioCREATININE (mg/dL)Date Value12/10/2022 1.51 (H)No results found for: "NTBNP"ThyroidNo results found for: "TSH"GLUCOSE (mg/dL)Date Value12/10/2022 189 (H)EKGLIPIDCHOL (mg/dL)Date Value12/10/2022 154TRIG (mg/dL)Date Value12/10/2022 104HDL (mg/dL)Date Value12/10/2022 80LDL CHOL (mg/dL)Date Value12/10/2022 53 95695-2Kdbcpxwln encounter BhllDX1337-57-67L09:44:30Telep skylar encounter NoteTXT1.2.840.560289.1.13.104 .2.7.2.482213|8626363524QAJbyx lable for patient oexl29710-0SmwxEAGBFCZCYHCHcqc atted C-CDA narrative text[address] FfvlYqaqrwpyhWfznpdaefRHBB1472 009858JFGTYXEDYRMZVITLBKGYHV69 29-08-27T14:44:301.2.840.76660 0.1.72.3.15|1.2.840.465258.1.1 3.104.2.7.2.727879_[id number] [facility] 2023-08-25 08:32:21 tGEpZ3B0KAPQjyEN7taD 4zx9bEoK12 fxU5S/3OivZc3VSUOHllAbZk59unYA My3B8732-50-89I12:32:21Formatt ing of this note is different from the original.Received refill request for:Medication:Requested PrescriptionsPending Prescriptions Disp Refillsmetoprolol succinate XL 50 mg 24 hr tablet 90 tablet 0Sig: TAKE 1 TABLET BY MOUTH EVERY DAY FOR 90 DAYSRequested PrescriptionsPending Prescriptions Disp Refillsmetoprolol succinate XL 50 mg 24 hr tablet 90 tablet 0Sig: TAKE 1 TABLET BY MOUTH EVERY DAY FOR 90 DAYSCardiovascular: Beta Blockers Passed - 08/24/2023 2:20 PMPassed - Valid encounter within last 12 monthsRecent VisitsDate Type Provider Dept03/27/23 Office Visit Chaz Rojas MD [facility] Bmtxyfp92/07/23 Office Visit Cecilio Galindo FNP [facility] FacultyShowing recent visits within past 365 days and meeting all other requirementsFuture AppointmentsNo visits were found meeting these conditions.Showing future appointments within next 365 days and meeting all other requirementsPassed - Heart rate within normal limits and completed in the last 12 monthsPulse Readings from Last 1 Encounters:03/27/23 95Medication Last filled:3Provider Note:Assessment/Plan:ICD-10-CM 1. Primary hypertension I102. Coronary artery disease involving tulalip coronary artery of tulalip heart without angina pectoris I25.103. Hyperlipidemia, unspecified hyperlipidemia type E78.54. Left heart failure I50.15. Atrial fibrillation, unspecified type I48.91EKG--August 05, 2022-reviewed by me and discussed with patientNormal EKGCoronary artery disease-nonobstructive. Continue aspirin and high intensity Lipitor. Continue metoprolol.Possible heart failure-suspect diastolic heart failure. Volume status is good. Continue as needed Lasix.Hypertension-her blood pressure is well controlled. Continue metoprolol/lisinopril. BMP December 10, 2022-potassium 4.9, creatinine 1.51.Hyperlipidemia-continue Lipitor. LDL 53 on December 10, 2022.Possible arrhythmias-currently EKG is normal. No palpitations. Uncertain history about atrial fibrillation and AV block.RTC 12 months or sooner if neededRecent VisitsDate Type Provider Dept03/27/23 Office Visit Chaz Rojas MD [facility] Egnfomt88/07/23 Office Visit Cecilio Galindo FNP [facility] FacultyShowing recent visits within past 365 days and meeting all other requirementsFuture AppointmentsNo visits were found meeting these conditions.Showing future appointments within next 365 days and meeting all other requirementsRefilled approval sent to:Pharmacy:[facility]/pharmacy #[id number] - [place], [place] - [address] AT [facility] [address]Foqyv: [phone] Kmpspwuo based on current protocol and last office visit note.Nara Gray MA 08/25/2023 8:34 AMNo visits with results within 3 Month(s) from this visit.Latest known visit with results is:Meeting Coordinator Visit on 12/10/2022omponent Date ValueNA 12/10/2022 138K 12/10/2022 4.9CL 12/10/2022 102CO2 TOTAL 12/10/2022 31AGAP 12/10/2022 5BUN 12/10/2022 19GLUCOSE 12/10/2022 189 (H)CREATININE 12/10/2022 1.51 (H)CALCIUM 12/10/2022 8.6eGFR 12/10/2022 35.9CHOL 12/10/2022 154HDL 12/10/2022 80HDLC RATIO 12/10/2022 1.9TRIG 12/10/2022 104LDL CHOL 12/10/2022 53VLDL 12/10/2022 21 82563-9Xyqripnny encounter IdxqMU7911-22-81F25:38:16Telep skylar encounter NoteTXT1.2.840.797281.1.13.104 .2.7.2.743223|5048088103QVFzti lable for patient bqzi91559-7SkfhPGTRKEYGLODSern atted C-CDA narrative text[address] TterQyvlgafvsEfttjengpOEDH9382 988818AYVREMMOWUZLBQILWEXSZC11 29-08-19T08:38:161.2.840.97168 0.1.72.3.15|1.2.840.249784.1.1 3.104.2.7.2.727879_[id number] [facility] 2023-08-07 13:28:06 rIW2rJYi2XH7DGBc19FM mXRfch9UR8 SKBByd1hQAtNs3gonRr8vST6ZcegaH 7ZbH4892-24-66X98:28:06Formatt ing of this note might be different from the original.What did they find out in ER? Hold lisinopril, metoprolol and spironolactone. F/u in clinic to reassess. 97356-0Bjkeolths encounter NybwKU5592-80-32D31:28:39Telep skylar encounter NoteTXT1.2.840.392570.1.13.104 .2.7.2.687450|2599131930PTIuiq lable for patient trjx33311-6SrinEENENYXUFGJTflb atted C-CDA narrative text[address] FxolFjzrarrilCbvmjgbouUAEH0067 521931TRTKMRVOIIAEMQVOXTXWWM57 29-08-01T13:28:391.2.840.67502 0.1.72.3.15|1.2.840.453193.1.1 3.104.2.7.2.727879_[id number] [facility] 2023-08-07 13:23:44 Esm8+jcMcSIw9zKMAeKl 6d82jZ/eXY EGvmHYPbQ4WdVPBW8VNRP2podH7br0 xWad9469-45-47C79:23:44Formatt ing of this note might be different from the original.Still dizzy, BP 77/50Went to [facility] ER 3 days ago. Low BP gave fluids but They did not tell her to stop metoprolol/ lisinpril, Spironolactone.(Per patient) having difficulty thinking , speaking,Discussed holding BP meds until SBP>120. Strongly encouraged ER Visit / call 911 or friend/family for transportationStated that she would consider it 89225-0Cgsvtezgs encounter ZalkFV1656-53-71Q60:42:54Telep skylar encounter NoteTXT1.2.840.056512.1.13.104 .2.7.2.595755|4908924494FWDtxd lable for patient xpqn76358-8ZyifVTGTPHHAEEZTrlx atted C-CDA narrative yldl840639440Yytdg A [place] [address]TXTX[address] 930992IZRZYVDHEGXNMVWPWEIBYQ76 29-08-01T13:42:541.2.840.92507 0.1.72.3.15|1.2.840.297984.1.1 3.104.2.7.2.727879_[id number] Al[facility] Pat[facility] 2023-07-27 10:26:20 zkR4FtfMNSUj6uu+QcXq DoOvVqYlcJ yG2iMTa0yHFHTNRTmAswN5g7bi3XF0 79Fc2679-50-77O26:26:20Formatt ing of this note might be different from the original.Lila Rosales is a 57 year old female Pt said she feels dizzy and light headed since last . Pt said her blood pressure has been low 58479-9Vxuaunehz encounter KkleWA4730-40-61F44:38:12Telep skylar encounter NoteTXT1.2.840.432601.1.13.104 .2.7.2.448293|7244053404KGCabx lable for patient gtuw60884-6VeejIMJMOLZIFGQEjsz atted C-CDA narrative pebh369395941Ihclhgk [address] Collins[address]TX[address] 979948JCKRDNJTTJSBAEJJNKLPEY82 29-07-21T10:38:121.2.840.33977 0.1.72.3.15|1.2.840.028587.1.1 3.104.2.7.2.727879_[id number] Janice Carroll [facility] 2023-02-23 16:29:46 w+9y3KA4VqJGrC0rS5FM SGyBmWiZaW bQKYonrC+JMrihxQi7r3UkZcoygS/q Vrj11836-73-46T04:29:46Formatt ing of this note might be different from the original.Spoke with patient, informed of additional left breast usn imaging ordered to be done in 6 months. Patient verbalized understanding. 61039-1Ttwczfdoi encounter KoobKW6810-14-17R53:30:42Telep skylar encounter NoteTXT1.2.840.483658.1.13.104 .2.7.2.306854|3253764678UGGrvr lable for patient eerj55055-8NxqeXM972834456Qmkw hiwot [place] RN[address] UuwvIfxvkugmgBxbxnldeaXLIQ5512 537687MULUXVZQPUSZBZBBVKIRMZ08 25-02-21T16:30:421.2.840.70200 0.1.72.3.15|1.2.840.120487.1.1 3.104.2.7.2.727879_[id number] Nina England RN [facility] 2023-02-23 12:03:54 JZiV++RNW8DMYU6pTkNO 2bI0yrR93O cUcU2aZdQ24PkgCad6bI3IvkTJyPxu xV094549-86-98S96:03:54Formatt ing of this note might be different from the original.Pt is returning nurse call 35791-7Upwdwjcgl encounter GtamYM8533-91-51Z69:04:15Telep skylar encounter NoteTXT1.2.840.041542.1.13.104 .2.7.2.499951|1151642502RFPakg lable for patient nzfy90966-8AzgrUN020751580Giqg froy [address]vestonTXTX[address] 361193CLDXXRJBWOFTSKLQHYBFBM10 25-02-21T12:04:151.2.840.92430 0.1.72.3.15|1.2.840.614642.1.1 3.104.2.7.2.727879_[id number] Soledadfroy Muniz [facility] 2023-02-23 10:57:18 M4a5q2a5HnEtR4ReDdjS jrHi73Wt+y ibFfmMAk4Kc3vL9RYlOgSCvikh+Matias s9yQ1434-03-38K50:57:18Formatt ing of this note might be different from the original.Pt returning nurse call 04681-4Lrvqwliff encounter QnymMC4766-91-87O21:57:33Telep skylar encounter NoteTXT1.2.840.439902.1.13.104 .2.7.2.366883|3724275861PGLssu lable for patient nzyo99847-7RderBISTNILZKZ[address]vdGalvestonGalvestonTXTX[address] 593519BFNPZIFTXPVFXNLJNWJSEK36 25-02-21T10:57:331.2.840.43431 0.1.72.3.15|1.2.840.046599.1.1 3.104.2.7.2.727879_[id number] [facility] 2023-02-23 09:41:53 NmlwhrBRrQ4cua7fTbYm PBzrHIt+C7 SKxr9d5NunyzEP1aa+uksIKZ2U3nmu g9564599-54-25U54:41:53Formatt ing of this note might be different from the original.Lila Rosales is a 57 year old female returning call for nurse/results 15540-1Exhwxefnj encounter MtbnHA7737-59-84P45:43:39Telep skylar encounter NoteTXT1.2.840.288390.1.13.104 .2.7.2.830848|0325705652CLOtli lable for patient fkpj79243-6RwsyYB528440405Sxfp marilee Hinojosa [address]TX[address] 633263QQWPYYKSETSMNQCUSFGOHM31 25-02-21T09:43:391.2.840.94217 0.1.72.3.15|1.2.840.352082.1.1 3.104.2.7.2.727879_[id number] Eren Hinojosa [facility] 2023-02-23 09:09:48 F827lnXbn95DCeYR0fck UwZj8mxGH1 E6+iIUqnadbrSQWdmeycF+ukbuUrZP E4s58130-39-73D58:09:48Formatt ing of this note might be different from the original.Attempted to contact patient by phone, no answer, message left on voicemail to call back. Nina England RN 02/23/2023 9:09 AM 50410-1Xzyppnfyi encounter EduqPT2324-77-69Z09:10:08Telep skylar encounter NoteTXT1.2.840.426409.1.13.104 .2.7.2.379909|[id number] lable for patient siro67195-9JwlpGGVHKJJUQC[address] 004197YOAJOQLPMYMZPCOCBXKPUL96 25-02-21T09:10:081.2.840.83223 0.1.72.3.15|1.2.840.636774.1.1 3.104.2.7.2.727879_[id number] [facility] 2023-02-23 08:15:04 Dm8QBP9ET9rTaM6OmSfp e5JamW1AfI bwDOP3ctCOqOHd2y4XQuAz1UC75mDY S4mG3417-39-02W97:15:04Formatt ing of this note might be different from the original.Patient is calling stating she received a call last week concerning antigen results. She had a mammogram and ultrasound done. Please call and advise thanks. 59738-1Omoykgoxo encounter DlumKB4695-49-74C38:16:49Telep skylar encounter NoteTXT1.2.840.043776.1.13.104 .2.7.2.458896|[id number] lable for patient zqbf38480-9OfmgHS984002941Ntij lauri Jackson[address] RosxCteowqdflJulbtiaheMHHN5400 392521XPMOGZVTYZQQUNMDLDVDJN90 25-02-21T08:16:491.2.840.26984 0.1.72.3.15|1.2.840.825098.1.1 3.104.2.7.2.727879_[id number] Johana Jackson [facility] 2023-02-18 13:18:41 zpcPwW6xOJk5VZ7hdBk+ d0ZOCUd/5R Fi+OQnqdMq+IDcJ628mohTH2E+dbZA 96mI8293-65-38Q00:18:41Formatt ing of this note might be different from the original.Voicemail left for patient to return call, 3rd attempt. Will mail a lettero patient. Order faxed to [facility] 62439-5Twvsiuirr encounter TgnbCY9817-07-20D59:19:38Telep skylar encounter NoteTXT1.2.840.062932.1.13.104 .2.7.2.673208|[id number] lable for patient qngx73399-4NrniCBUZMINOIK90 [address]Gal[place]TX[place] 921880XPIBNVSCORRHGFUVBTFWYL16 26-02-16T13:19:381.2.840.88550 0.1.72.3.15|1.2.840.174017.1.1 3.104.2.7.2.727879_[id number] [facility] 2023-02-17 11:46:47 pauTaY1e07V05ZgONwHd p4/BI0J1Yq 5CjrzBE33+wo7TD8vm0EG9nOm1z3Z0 N2tf4564-56-86G24:46:47Formatt ing of this note might be different from the original.Voicemail left for patient to return call. 39125-3Uelbqsmuw encounter MoqjAP1483-23-09I56:48:19Telep skylar encounter NoteTXT1.2.840.250644.1.13.104 .2.7.2.987155|7380007660XYLdxh lable for patient kixn30174-8SkddCBYUACGJOE75 [address] 270604RYYOLZPSLCLOPMJLZDJJDP72 25-02-15T11:48:191.2.840.20744 0.1.72.3.15|1.2.840.993788.1.1 3.104.2.7.2.727879_[id number] [facility] 2023-02-16 16:32:13 s2g/xkP77+UoiyKdLgai 1DwHFXtd4f PEnM0WJws4XXpEGSnEicnljPGXh93p WTZw0423-57-54P97:32:13Formatt ing of this note might be different from the original.Voicemail left for patient to return call. 73238-5Jxgegoabm encounter AkrsJM9601-10-58T45:32:17Telep skylar encounter NoteTXT1.2.840.758004.1.13.104 .2.7.2.814368|[id number] lable for patient gihe58328-2EhfeNFMJIZDOFS43 [address] 504891QBOEFDJRPQZXBOCZVEORKC67 25-02-146:32:171.2.840.74550 0.1.72.3.15|1.2.840.344564.1.1 3.104.2.7.2.727879_[id number] [facility] 2023-02-16 15:52:10 b5/5JrwSxYEp/lgNBqtF XNYv3RyXFV 6ASNHRwRUUkOBM4zn5SG4x+tMKspwh q2JN9135-44-22X80:52:10 Addended by: EMMY FINK NP on: 02/16/2023 03:52 PM Modules accepted: Orders 37338-3Fkqixvfy UpztoglnDV2196-93-58E87:52:10A ddendum DocumentTXT1.2.840.201001.1.13 .104.2.7.2.439684|[id number] Available for patient vjbl83785-5WmjaRFKCUYDASS43 [address] 896890ELIOAISLZENCYBYNPZYJJJ82 25-02-14T15:52:101.2.840.50358 0.1.72.3.15|1.2.840.535251.1.1 3.104.2.7.2.727879_[id number] [facility] 2023-02-16 15:48:57 p2gsGMIgYLPD2UkwN7MD NQ0T1IBXOZ 2TL5TmojOElpcv9EsqMigj+evH31Mr 3t0M4883-60-14O58:48:57Formatt ing of this note might be different from the original.Reviewed updated results from [facility]. Addended to state left breast instead of originally documented right breast. Orders will be updated as indicated.Emmy Fink NP 02/16/2023 3:50 PM 46200-3Yrmagygpr encounter IeqpVM6624-65-23H39:52:08Telep skylar encounter NoteTXT1.2.840.086173.1.13.104 .2.7.2.110124|[id number] lable for patient cjla08973-7NqchRDRACBQUTV[address] RjotSziznudghUxmemclppYCBN6336 588638WFNQOJXRNJZZIOSTTDJDZQ73 25-02-14T15:52:081.2.840.17277 0.1.72.3.15|1.2.840.961380.1.1 3.104.2.7.2.727879_[id number] [facility] 2023-02-16 14:42:00 GSaHxMctJksMYsxc+Tgo JRBsnbMB/x yk/WfWE2hWFVpv9JnvIolsrHuURTGO FRZs6232-14-68M71:42:00Formatt ing of this note might be different from the original.See telephone encounter for additional orders.Emmy Fink NP 02/16/2023 3:52 PM 92789-9Uktbqkpv vsheFP6629-21-16N73:52:35Progr ess noteTXT1.2.840.071788.1.13.104 .2.7.2.035420|[id number] lable for patient jzqc77936-8YnmzFVDKJLKITD[address] 134047SZPSLGOAUDRSAYBSFMVIOX07 25-02-14T15:52:351.2.840.75791 0.1.72.3.15|1.2.840.843687.1.1 3.104.2.7.2.727879_[id number] [facility] 2023-02-13 14:14:55 2pmno1i2o+kjKBNYPjPT q/rbTG+ef4 fUqgedsD//Jojf7sBR4JejxLA++As8 OCWb7049-10-05S72:14:55Formatt ing of this note might be different from the original.See other telephone encounter. Routed to provider for review. 57658-9Pvwoxqzhw encounter BtsfLX0234-99-49P39:15:28Telep skylar encounter NoteTXT1.2.840.174383.1.13.104 .2.7.2.071176|[id number] lable for patient ylro93206-7TazyBCDYGQPGFF75 [address] 934514VZXKOFVVOWTNMDZWVNGPPG09 25-02-11T14:15:281.2.840.20315 0.1.72.3.15|1.2.840.667751.1.1 3.104.2.7.2.727879_[id number] [facility] 2023-02-13 08:59:04 1uw2ZcND6K4y94AsLqg1 od577FBuIa gCUPILpOhphmseEip1ZgAkIA5tlPwt uU640781-65-73M26:59:04Formatt ing of this note might be different from the original.Jacinta with Radiology department from [facility] calling to states that the radiology report for her mammogram and ultrasound that was faxed over yesterday is incorrect and to please shred the report . She is working to get the correct report sent over. Call back number: [phone] signed by Анна Mccollum at 02/13/2023 9:04 AM BLT46701-2Ozetxbbfu encounter EvmnQC6366-46-06R62:04:26Telep skylar encounter NoteTXT1.2.840.569616.1.13.104 .2.7.2.242074|[id number] lable for patient ticu81933-9IcqhOY64505613Jwqow sa R [address] 331419PHPLDQKPLVISHNXMKGUWMG32 25-02-1109:04:261.2.840.06667 0.1.72.3.15|1.2.840.015472.1.1 3.104.2.7.2.727879_[id number] Анна Mccollum [facility] 2023-02-12 16:53:18 TAqlb5GM6moPOoRcqCGw lTOVTYiQis DzQxxCEwF95V/w0L3HeIf/34SQQDyV vi6O2477-70-47C09:53:18Formatt ing of this note might be different from the original.Voicemail left for patient to return call. 28763-5Vcruqcvmb encounter MaojCO9623-36-84V33:53:23Telep skylar encounter NoteTXT1.2.840.349970.1.13.104 .2.7.2.010407|[id number] lable for patient vond14751-8QuzmTOWUGHEZQE43 [address] 102869QLXCICENQUXXASMOOIYMRJ72 25-02-106:53:231.2.840.91800 0.1.72.3.15|1.2.840.392868.1.1 3.104.2.7.2.727879_[id number] [facility] 2023-02-12 14:57:39 nFndBAd8T3Kq0HTienHA KktwKE4EXc xRxedtD7HCut61gofEM3lXZeiIqvBa k2R+9121-05-87X20:57:39Formatt ing of this note might be different from the original.I have placed orders for right breast imaging / ultrasound as recommended per radiology at [facility]. "Six month follow-up diagnostic projections of right breast recommended for surveillance purposes given the lack of comparative studies available". Please inform Ms. Rosales. She will also need orders to scheduled.Emmy Fink NP 02/12/2023 3:01 PM 69260-8Mjfzdwdfc encounter NkrkTP1131-44-01X22:01:45Telep skylar encounter NoteTXT1.2.840.632961.1.13.104 .2.7.2.569032|[id number] lable for patient tpha29203-7BhfpFBWEXAYIPB[address] JmyuXajkyhtdvTerxbascqAMTG5945 614074FRDWDSAGAWFLUERMUEHHTP65 25-02-10T15:01:451.2.840.73800 0.1.72.3.15|1.2.840.307221.1.1 3.104.2.7.2.727879_[id number] [facility]
--- NOTE | 2023-09-16 13:31 | RAD REPORT ---
EXAM DESCRIPTION: RADChest Single View09/16/2023 1:18 pm CLINICAL HISTORY: COPD COMPARISON: Chest Single View dated 09/14/2023 TECHNIQUE: Portable AP view of the chest. FINDINGS: The lungs show no new focal consolidation. Stable pattern of mid to lower lung fibrotic re ticular opacities with architectural distortion. No pneumothorax or effusion. The cardiomediastinal contours are unremarkable. IMPRESSION: No acute cardiopulmonary process. Stable reticular opacities, basal predominant.
[2023-09-16 13:58] LABS: Absolute Lymphocytes (CBC) 2.3 K/uL (0.7-4.9); Absolute Monocytes 0.2 K/uL (0.1-1.3); Absolute Neutrophil 6.1 K/uL (1.8-8.0); Basophils % 0.4 % (0-1.3); Eosinophils % 0.1 % (0-4.4); Hematocrit 29.3 % (36.0-45.0); Hemoglobin 9.8 g/dL (12.0-15.0); Lymphocytes % 26.9 % (15.3-44.8); MCH 31.3 pg (27.0-35.0); MCHC 33.3 g/dL (32.0-36.0); MCV 93.9 fL (80-100); MPV 8.5 fL (7.6-11.3); Neutrophils % 70.6 % (41.7-73.7); Platelets 416 thou/uL (152-406); RBC Red Blood Cell Count 3.12 M/uL (3.86-4.86); Red Cell Distribution Width 17.8 % (12.1-15.2)
[2023-09-16 14:18] LABS: ALT/SGPT 18 U/L (13-56); AST/SGOT 9 U/L (15-37); Albumin 1.7 g/dL (3.4-5.0); Albumin/Globulin Ratio 0.5 (1.1-1.8); Alkaline Phosphatase 174 U/L (45-117); Anion Gap 8.6 mEq/L (5.0-15.0); BUN Blood Urea Nitrogen 21 mg/dL (7-18); Bicarbonate 30 mEq/L (21-32); Bilirubin Total 0.1 mg/dL (0.2-1.0); Globulin 3.4 g/dL (2.3-3.5); Glomerular Filtration Rate 56 ml/min (=/>90); Glucose Level 117 mg/dL (74-106); Magnesium 1.2 mg/dL (1.6-2.4); NT PRO-BNP 3335 pg/mL (<125); Potassium 4.6 mEq/L (3.5-5.1); Protein, Total 5.1 g/dL (6.4-8.2); Sodium Level 143 mEq/L (136-145); Troponin High Sensitivity 4.3 pg/mL (<58.9)
[2023-09-16 14:19] LABS: Bilirubin Direct < 0.1 mg/dL (0-0.2); Bilirubin Indirect, Calculated ND mg/dL (0.2-0.8)
--- NOTE | 2023-09-16 14:52 | ER ---
Nurse's Notes [facility] Name: Lila Rosales Age: 57 yrs Sex: Female : 1965 Arrival Date: 09/16/2023 Time: 12:56 Bed 13 Private MD: Diagnosis: COPD/ Chronic obstructive pulmonary disease, unspecified Presentation: 09/15 13:12 Chief complaint: Patient states: Pt c/o 2-3 day history of difficulty breathing, nausea tl4 and vomiting. Pt states her blood glucose has been higher than normal as well. Coronavirus screen: At this time, the client does not indicate any symptoms associated with coronavirus-19. Ebola Screen: No symptoms or risks identified at this time. Initial Sepsis Screen: Does the patient meet any 2 criteria? No. Patient's initial sepsis screen is negative. Does the patient have a suspected source of infection? No. Patient's initial sepsis screen is negative. Risk Assessment: Do you want to hurt yourself or someone else? Patient reports no desire to harm self or others. Onset of symptoms was September 13, 2023. 13:12 Method Of Arrival: EMS: [facility] tl4 13:12 Acuity: DONNY 3 tl4 Triage Assessment: 13:18 General: Appears in no apparent distress. Behavior is calm, cooperative. Pain: Denies tl4 pain. EENT: No deficits noted. No signs and/or symptoms were reported regarding the EENT system. Denies pain nasal congestion, nasal discharge, difficulty swallowing. Neuro: No deficits noted. Denies weakness dizziness, headache. Cardiovascular: No deficits noted. Denies chest pain, diaphoresis, lightheadedness, palpitations, syncope. Respiratory: Reports shortness of breath at rest Onset: The symptoms/episode began/occurred 2-3 days, the patient has mild shortness of breath. GI: Reports nausea, vomiting, Patient currently denies abdominal pain. : No deficits noted. No signs and/or symptoms were reported regarding the genitourinary system. Derm: No deficits noted. No signs and/or symptoms reported regarding the dermatologic system. Musculoskeletal: No deficits noted. No signs and/or symptoms reported regarding the musculoskeletal system. 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 - Social history:: Smoking status: Patient reports the use of cigarette tobacco products, smokes one pack cigarettes per day. Patient/guardian denies using alcohol, street drugs. - Family history:: not pertinent. Screenin:09 [facility] ED Fall Risk Assessment (Adult) History of falling in the last 3 months, tl4 including since admission Yes- single mechanical fall (1 pt) Confusion or Disorientation No (0 pts) Intoxicated or Sedated No (0 pts) Impaired Gait No (0 pts) Mobility Assist Device Used No (0 pt) Altered Elimination No (0 pt) Score/Fall Risk Level 0 - 2 = Low Risk Oriented to surroundings, Maintained a safe environment, Educated pt \T\ family on fall prevention, incl call for assistance when getting out of bed, Assessed \T\ reinforced patient's understanding of fall precautions, Hourly rounding (assess needs \T\ fall precautionary measures) done, Used ambulatory aids as needed (educated on \T\ assisted with), Used gait belt as appropriate. Abuse screen: Denies threats or abuse. Denies injuries from another. Nutritional screening: No deficits noted. Tuberculosis screening: No symptoms or risk factors identified. Assessment: 14:00 Reassessment:. Reassessment: No changes from previously documented assessment. Patient tl4 and/or family updated on plan of care and expected duration. Pain level reassessed. Patient is alert, oriented x 3, equal unlabored respirations, skin warm/dry/pink. Cardiovascular: Rhythm is sinus rhythm. Respiratory: Airway is patent Respiratory effort is even, unlabored, Respiratory pattern is regular, Breath sounds with crackles bilaterally. 15:08 Reassessment: No changes from previously documented assessment. Patient and/or family tl4 updated on plan of care and expected duration. Pain level reassessed. Patient is alert, oriented x 3, equal unlabored respirations, skin warm/dry/pink. Pt is being discharged. Pt states she takes [employer] and that we call for her. Attempting to assist with setting up transportation. 15:45 Reassessment: Charge nurse DOUG Mullen is assisting with transportation home. tl4 16:05 Reassessment: No changes from previously documented assessment. Patient and/or family tl4 updated on plan of care and expected duration. Pain level reassessed. Patient is alert, oriented x 3, equal unlabored respirations, skin warm/dry/pink. Vital Signs: 13:12 BP 107 / 65; Pulse 82; Resp 18; Temp 98.9; Pulse Ox 95% on R/A; Weight 45.36 kg; Height tl4 5 ft. 0 in. ; Pain 0/10; 13:40 BP 102 / 75; Pulse 87; Resp 15; Pulse Ox 99% on R/A; tl4 14:00 BP 108 / 57; Pulse 87; Resp 16; Pulse Ox 99% on R/A; Pain 0/10; tl4 14:30 BP 109 / 67; Pulse 87; Resp 16; Pulse Ox 98% ; tl4 15:00 BP 114 / 66; Pulse 87; Resp 17; Pulse Ox 98% ; Pain 0/10; tl4 13:12 Body Mass Index 19.53 (45.36 kg, 152.4 cm) tl4 13:12 Pain Scale: Adult tl4 14:00 Pain Scale: Adult tl4 15:00 Pain Scale: Adult tl4 ED Course: 12:56 Patient arrived in ED. iw 12:56 Abiodun Mock MD is Attending Physician. rt 13:12 Ish Piper, DOUG is Primary Nurse. tl4 13:16 Triage completed. tl4 13:19 XRAY Chest (1 view) In Process Unspecified. EDMS 13:19 Arm band placed on right wrist. tl4 13:29 Patient has correct armband on for positive identification. Placed in gown. Bed in low tl4 position. Call light in reach. Side rails up X2. Provided Education on: ed process. Client placed on continuous cardiac and pulse oximetry monitoring. NIBP monitoring applied. Door closed. Lights dimmed. Moved to private room. Warm blanket given. 13:50 Initial lab(s) drawn, by me, sent to lab. Inserted saline lock: 22 gauge in right iw wrist, using aseptic technique. Blood collected. 14:03 Basic Metabolic Panel Sent. tl4 14:03 LFT's Sent. tl4 14:03 Magnesium Sent. tl4 14:03 NT PRO-BNP Sent. tl4 14:03 Troponin HS Sent. tl4 15:07 Diet: Patient given juice. tl4 16:07 No provider procedures requiring assistance completed. IV discontinued, intact, ap3 bleeding controlled, No redness/swelling at site. Pressure dressing applied. Administered Medications: 14:02 Drug: DuoNeb Nebulize (3:1) (2.5 mg - 0.5 mg) 3 ml Nebulizer once {Note: via nebulizer tl4 with mask with oxygen at 8 lpm.} Route: Nebulizer; 15:46 Follow up: Response: Wheezing diminished tl4 Medication: 16:08 VIS not applicable for this client. ap3 Outcome: 14:52 Discharge ordered by MD. rt 16:08 Discharged to home ambulatory, ap3 16:08 Condition: good 16:08 Discharge instructions given to patient, Instructed on discharge instructions, follow up and referral plans. Demonstrated understanding of instructions, follow-up care, 16:08 Patient left the ED. ap3 Signatures: Dispatcher [employer] EDMS Paz Sweet RN RN iw Aaliyah Rene RN RN ap3 Abiodun Mock MD MD rt Ish Piper RN RN tl4 Corrections: (The following items were deleted from the chart) 15:45 15:08 Reassessment: No changes from previously documented assessment. Patient and/or tl4 family updated on plan of care and expected duration. Pain level reassessed. Patient is alert, oriented x 3, equal unlabored respirations, skin warm/dry/pink. tl4
--- NOTE | 2023-09-16 14:52 | EDPHYS ---
Physician Documentation [facility] Name: Lila Rosales Age: 57 yrs Sex: Female : 1965 Arrival Date: 09/16/2023 Time: 12:56 Bed 13 Private MD: ED Physician Abiodun Mock HPI: 09/15 14:04 This 57 yrs old Female presents to ER via EMS with complaints of Breathing Difficulty. rt 14:04 Patient presents to the ED with dyspnea for the past few days. Patient reports this is rt somewhat of COPD. Reports nausea. States her blood sugars have been higher than typical. Denies other acute complaints, symptoms are moderate severity, no other aggravating elevating factors.. 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 - Social history:: Smoking status: Patient reports the use of cigarette tobacco products, smokes one pack cigarettes per day. Patient/guardian denies using alcohol, street drugs. - Family history:: not pertinent. ROS: 14:04 Constitutional: Negative for fever, chills, and weight loss, MS/Extremity: Negative for rt injury and deformity, Skin: Negative for injury, rash, and discoloration, Neuro: Negative for headache, weakness, numbness, tingling, and seizure, Psych: Negative for depression, anxiety, suicide ideation, homicidal ideation, and hallucinations, 14:04 Respiratory: Positive for cough, shortness of breath, 14:04 Abdomen/GI: Positive for nausea, Negative for abdominal pain, Exam: 14:04 Constitutional: This is a well developed, well nourished patient who is awake, alert, rt and in no acute distress. Head/Face: Normocephalic, atraumatic. Chest/axilla: Normal chest wall appearance and motion. Nontender with no deformity. No lesions are appreciated. Cardiovascular: Regular rate and rhythm with a normal S1 and S2. No gallops, murmurs, or rubs. Normal PMI, no JVD. No pulse deficits. Abdomen/GI: Soft, non-tender, with normal bowel sounds. No distension or tympany. No guarding or rebound. No evidence of tenderness throughout. Skin: Warm, dry with normal turgor. Normal color with no rashes, no lesions, and no evidence of cellulitis. MS/ Extremity: Pulses equal, no cyanosis. Neurovascular intact. Full, normal range of motion. Neuro: Awake and alert, GCS 15, oriented to person, place, time, and situation. Cranial nerves II-XII grossly intact. Motor strength 5/5 in all extremities. Sensory grossly intact. Cerebellar exam normal. Normal gait. 14:04 ECG was reviewed by the Attending Physician. 14:04 Respiratory: Faint wheezes heard on all lung romero, no respiratory distress, Vital Signs: 13:12 BP 107 / 65; Pulse 82; Resp 18; Temp 98.9; Pulse Ox 95% on R/A; Weight 45.36 kg; Height tl4 5 ft. 0 in. ; Pain 0/10; 13:40 BP 102 / 75; Pulse 87; Resp 15; Pulse Ox 99% on R/A; tl4 14:00 BP 108 / 57; Pulse 87; Resp 16; Pulse Ox 99% on R/A; Pain 0/10; tl4 14:30 BP 109 / 67; Pulse 87; Resp 16; Pulse Ox 98% ; tl4 15:00 BP 114 / 66; Pulse 87; Resp 17; Pulse Ox 98% ; Pain 0/10; tl4 13:12 Body Mass Index 19.53 (45.36 kg, 152.4 cm) tl4 13:12 Pain Scale: Adult tl4 14:00 Pain Scale: Adult tl4 15:00 Pain Scale: Adult tl4 MDM: 12:56 Patient medically screened. rt 14:53 Differential diagnosis: COPD, CHF, pneumonia. Data reviewed: vital signs, nurses notes, rt lab test result(s), EKG, radiologic studies. Consideration of Admission/Observation Escalation of care including admission/observation considered. BNP stable, no evidence of pulmonary edema on chest x-ray, no pneumonia, oxygenation is appropriate, symptoms are improved with bronchodilators, stable for outpatient care. I considered the following discharge prescriptions or medication management in the emergency department Medications were administered in the Emergency Department. See MAR. Independent interpretation of the following test(s) in the Emergency Department X-Ray: My interpretation is No pneumonia seen on interpretation of x-ray images. Test considered but Not performed: CT: Low suspicion for pulmonary embolism, CT angiogram not indicated. Care significantly affected by the following chronic conditions: Obesity. Counseling: I had a detailed discussion with the patient and/or guardian regarding the historical points, exam findings, and any diagnostic results supporting the discharge/admit diagnosis, lab results, radiology results, the need for outpatient follow up, to return to the emergency department if symptoms worsen or persist or if there are any questions or concerns that arise at home. Response to treatment: the patient's symptoms have markedly improved after treatment. 09/15 12:57 Order name: Basic Metabolic Panel; Complete Time: 14:22 rt 09/15 12:57 Order name: CBC with Diff; Complete Time: 14: rt 09/15 12:57 Order name: LFT's; Complete Time: 14: rt 09/15 12:57 Order name: Magnesium; Complete Time: 14: rt 09/15 12:57 Order name: NT PRO-BNP; Complete Time: 14:22 rt 09/15 12:57 Order name: Troponin HS; Complete Time: 14:22 rt 09/15 12:57 Order name: XRAY Chest (1 view); Complete Time: 13:32 rt 09/15 12:57 Order name: EKG; Complete Time: 12:57 rt 09/15 12:57 Order name: Cardiac monitoring; Complete Time: 13:19 rt 09/15 12:57 Order name: EKG - Nurse/Tech; Complete Time: 14:02 rt 09/15 12:57 Order name: IV Saline Lock; Complete Time: 14:02 rt 09/15 12:57 Order name: Labs collected and sent; Complete Time: 14:03 rt 09/15 12:57 Order name: O2 Per Protocol; Complete Time: 13:19 rt 09/15 12:57 Order name: O2 Sat Monitoring; Complete Time: 13:19 rt EC:04 Rate is 78 beats/min. Rhythm is regular, Normal Sinus Rhythm with No ectopy. QRS Lynd rt is Normal. PA interval is normal. QRS interval is normal. QT interval is normal. No Q waves. T waves are Normal. No ST changes noted. Interpreted by me. Administered Medications: 14:02 Drug: DuoNeb Nebulize (3:1) (2.5 mg - 0.5 mg) 3 ml Nebulizer once {Note: via nebulizer tl4 with mask with oxygen at 8 lpm.} Route: Nebulizer; 15:46 Follow up: Response: Wheezing diminished tl4 Disposition Summary: 09/16/23 14:52 Discharge Ordered Notes: Location: Home rt Problem: new rt Symptoms: have improved rt Condition: Stable rt Diagnosis - COPD/ Chronic obstructive pulmonary disease, unspecified rt Followup: rt - With: Private Physician - When: 2 - 3 days - Reason: Discharge Instructions: - Discharge Summary Sheet rt - Chronic Obstructive Pulmonary Disease rt Forms: - Medication Reconciliation Form rt - Thank You Letter rt - Antibiotic Education rt - Prescription Opioid Use rt - Patient Portal Instructions rt - Leadership Thank You Letter rt Signatures: Dispatcher [employer] EDPR Abiodun Mock MD MD rt Ish Piper RN RN tl4
[2023-09-16 16:26] VITALS: BP 114/66; TEMP 98.9; O2SAT 98
== END ==
LOC: ER 12:56
DX: J44.9 Chronic obstructive pulmonary disease, unspecified (principal); F17.210 Nicotine dependence, cigarettes, uncomplicated; Z88.8 Allergy status to other drugs, medicaments and biological substances
CPT/HCPCS: 85025; 80048; 36415; 83735; 80076; 84484; 83880; 71045; J7613; J7644; 93005